=== PATIENT | male | born 1945 | race African-American/Black ===

== ENCOUNTER 2016-10-21 10:32 | Inpatient (IN) | payer OTHER, MEDICAID ==
[~2016-10-21] VITALS: Ht 177.8 cm; Wt 86.2 kg
[2016-10-21] VITALS (40 sets, daily range): BP systolic 59–157; BP diastolic 41–94
[~2016-10-21 10:32] MED LIST: Piperacillin/Tazobactam 4.5 GM in NS 110 ML IV STA
--- NOTE | 2016-10-21 10:40 | Emergency Room Report ---
History of Present Illness General Chief Complaint: Altered Level of Consciousness Source: Medical Record Present Illness HPI [id number] BIBEMS from SNF for "episode of unresponsiveness" at SNF. SNF nurses said patient usually "talking, responsive," acutely was not responsive VS stable on scene. Glucose 113 per EMS. Patient trach/vent chronically - dementia - not providing HPI Allergies: Coded Allergies: No Known Allergies (Unverified , 10/21/16) Patient History Past Medical History: DM, [place], dementia Past Surgical History: unable to obtain Pertinent Family History: unable to obtain Social History: Denies: smoking, alcohol use, drug use Immunizations: UTD Reviewed Nursing Documentation: PMH: Agreed, PSxH: Agreed Nursing Documentation-PMH Hx Cardiac Problems: Yes - TRACH,RENAL FAILURE,CHF Hx Hypertension: Yes Hx Pacemaker: Yes Hx COPD: Yes Hx Diabetes: Yes Hx Gastrointestinal Problems: Yes - g-TUBE Review of Systems All Other Systems: limited - AMS Physical Exam Vital Signs Date Time Temp Pulse Resp B/P (MAP) Pulse Ox O2 Delivery O2 Flow Rate FiO2 10/21/16 10:15 63 15 94/73 97 Trach Collar 8.0 40 Sp02 EP Interpretation: reviewed, normal General Appearance: normal inspection, well appearing, no apparent distress, other - Apneic breathing Head: normocephalic, atraumatic Eyes: bilateral eye PERRL, bilateral eye EOMI ENT: normal ENT inspection, hearing grossly normal, normal voice Neck: normal inspection, full range of motion, supple, no meningismus, no bony tend Respiratory: normal inspection, chest non-tender, no respiratory distress, no retraction, no accessory muscle use, rhonchi Cardiovascular #1: regular rate, rhythm, no edema Gastrointestinal: normal inspection, normal bowel sounds, non tender, soft, no guarding, no hernia Genitourinary: no CVA tenderness Musculoskeletal: normal inspection, back normal, normal range of motion, Tonya' s Sign negative Neurologic: normal inspection, alert, responsive, brush washer III-XII nml as tested, speech normal Psychiatric: normal inspection, judgement/insight normal, mood/affect normal Skin: normal inspection, normal color, no rash Procedures Critical Care Time Critical Care Time CC time 40 minutes includes review of EMR and paperwork from SNF, d/w admitting hospitalist, review of labs, CXR, bedside evaluation of vital signs/O2 sat CC also could include Abx, pressors Does not include procedure time Central Line Central Line : Consent: Emergent Central Line Lumen: triple Maximal Sterile Barrier Tech: yes cap, yes mask, yes sterile gown, yes sterile gloves, yes large sterile sheet, yes hand hygiene, yes chlorhexidine prep No Max Barrier Tech Because: emergency insertion Central Line Postion: internal jugular (R) Complications: none Central Line Post Position: sutured, good blood return, position confirmed w / CXR Attempts: One Patient Tolerated: Well Complications: None Medical Decision Making Medicare Attestation I Ruddy Elizabeth MD hereby attest that the medical record entry for date of service, 10/21/16 accurately reflects signatures/notations that I made in my capacity as MD when I treated/diagnosed the above listed Medicare beneficiary. I attest that this information is true, accurate and complete to the best of my knowledge. I understand that any falsification, omission, or concealment of material fact may subject me to administrative, civil, or criminal liability. This patient warrants hospital admission for extreme of age and has a condition that cannot be treated as outpatient. Diagnostic Impression: Primary Impression: Altered level of consciousness Additional Impressions: Hyperkalemia Septic shock Pneumonia Qualified Codes: J18.9 - Pneumonia, unspecified organism Shock liver UTI (urinary tract infection) Qualified Codes: N30.01 - Acute cystitis with hematuria ER Course Initially patient maintained O2 sat on Trach mask, then desaturation to 60s. Was connected to Vent. Pts trach/airway remains patent, supplemental O2 provided by Vent Patients BP has remained stable with MAP > 65 Given broad spectrum abx - zosyn Labs: H&H stable. Lactate normal. HyperK. Shock liver. UTI CXR: Bilateral PNA vs pulm congestion EKG: sinus with 1st degree AV block. Hyperacute T waves in V3-4 - No response to fluid challenge. Required central line and Levophed pressor - HyperK treated - likely cause of hyperacute Twaves Disposition: Patient will admitted to ICU Patient requires close monitoring of respiratory/hemodynamic status and continuation of abx to treat sepsis D/W hospitalist Dr Mary at 1217pm EKG Diagnostic Results Rate: other - 1st degree AV block Rhythm: NSR ST Segments: other - peaked Twaves Rhythm Strip Diag. Results EP Interpretation: yes Rate: 65 Rhythm: NSR, other - Multiple PVCs Chest X-Ray Diagnostic Results Chest X-Ray Diagnostic Results : Chest X-Ray Ordered: Yes # of Views/Limited/Complete: 1 View Indication: Other - AMS EP Interpretation: Yes Interpretation: no pneumothorax, other - Diffuse bilateral infiltrate vs congestion Interpreting ER Provider: Dr Ruddy Elizabeth MD Last Vital Signs Date Time Temp Pulse Resp B/P (MAP) Pulse Ox O2 Delivery O2 Flow Rate FiO2 10/21/16 10:15 63 15 94/73 97 Trach Collar 8.0 40 Status: improved Disposition: ADMITTED INPATIENT Condition: Critical RUDDY ELIZABETH M.D. Oct 21, 2016 10:40
[2016-10-21] MEDS ORDERED: Zosyn 4.5gm inj ONE (11:06)
[2016-10-21] MEDS ORDERED: Lidocaine 1% MPF 10mg/ml 5ml ONE (11:06)
[2016-10-21 11:13] LABS: APPEARANCE,URINE TURBID; KETONES,URINE NEGATIVE (NEGATIVE); LEUKOCYTE ESTERASE ,URINE 1+ (NEGATIVE); NITRITE,URINE NEGATIVE (NEGATIVE); PH,URINE 5 (4.5-8.0); PROTEIN,URINE 1+ (NEGATIVE); UROBILINOGEN,URINE NORMAL MG/DL (0.0-1.0)
[2016-10-21 11:13] LABS: MEAN CORPUSCULAR VOLUME 96 FL (80-99); MEAN PLATELET VOLUME 11.5 FL (6.5-10.1); PLATELET COUNT 91 K/UL (150-450); RED BLOOD COUNT 3.75 M/UL (4.70-6.10); RED CELL DISTRIBUTION WIDTH 20.8 % (11.6-14.8); WHITE BLOOD COUNT 7.5 K/UL (4.8-10.8)
[2016-10-21 11:18] LABS: TROPONIN I < 0.30 ng/mL (<=0.30)
[2016-10-21 11:19] LABS: ALANINE AMINOTRANSFERASE 149 U/L (3-41); ALBUMIN/GLOBULIN RATIO 0.5 (1.0-2.7); ANION GAP 7 (5-15); ASPARTATE AMINO TRANSFERASE 164 U/L (5-40); CALCIUM 10.4 mg/dL (8.6-10.2); CARBON DIOXIDE 32 mEQ/L (20-30); CHLORIDE 107 mEQ/L (98-107); HEMOLYSIS 13; POTASSIUM 5.6 mEQ/L (3.4-4.9); SODIUM 146 mEQ/L (135-145); TOTAL PROTEIN 7.8 g/dL (6.6-8.7)
[2016-10-21 11:29] LABS: CKMB 9.1 ng/mL (< 6.7)
[2016-10-21 11:41] LABS: AMORPHOUS SEDIMENT,UR MANY /LPF; BACTERIA,URINE FEW /HPF; SQUAMOUS EPITHELIAL CELL,UR FEW /LPF (NONE/OCC)
[2016-10-21] MEDS ORDERED: Levophed 4mg/4mL Inj IV ONE ×3 (11:44→20:33)
[2016-10-21 11:48] LABS: BAND NEUTROPHILS % (MANUAL) 8 % (0-8); BASOPHILS % (MANUAL) 1 % (0-2); EOSINOPHILS % (MANUAL) 1 % (0-3); LYMPHOCYTES % (MANUAL) 24 % (20-45); METAMYELOCYTES % 2 % (0-0); MYELOCYTES % 2 % (0-0); NEUTROPHILS % (MANUAL) 48 % (45-75); TOTAL CELLS COUNTED 100
[2016-10-21 11:55] LABS: PLATELET ESTIMATE DECREASED; PLATELET MORPHOLOGY NORMAL
[2016-10-21] MEDS ORDERED: Atropine Sulfate 0.4mg/ml inj 20ML IVP ONE (12:00)
[2016-10-21] MEDS ORDERED: LORazepam Inj 2mg/ml 1ml ONE (12:04)
--- NOTE | 2016-10-21 12:15 | Diagnostic Imaging Report ---
Indication: Dyspnea Comparison: None A single view chest radiograph was obtained. Findings: Airspace opacities fairly extensively throughout both lung langston demonstrated. The heart is enlarged. There is a probable right pleural effusion. Tracheostomy is present. Impression: Diffuse bilateral infiltrates versus pulmonary edema. Probable right pleural effusion.
[2016-10-21] MEDS ORDERED: Calcium Gluconate 1gm/10ml vial IVP ONE (12:30)
[2016-10-21] MEDS ORDERED: Albuterol ud Inhalation HHN ONE (12:30)
[2016-10-21] MEDS ORDERED: Sodium Polystyrene Sulfonate 15gm Powder ORAL ONE (12:30)
[2016-10-21] MEDS ORDERED: ATIVAN1 MG GT (13:24)
[2016-10-21] MEDS ORDERED: MILK OF MA400 MG/51 GT (13:24)
[2016-10-21] MEDS ORDERED: COREG3.125 MG GT (13:24)
[2016-10-21] MEDS ORDERED: COLACE100 MG GT (13:24)
[2016-10-21] MEDS ORDERED: MULTIVITAMINS1 EAC2 GT (13:24)
[2016-10-21] MEDS ORDERED: BISACODYL5 MG GT (13:24)
[2016-10-21] MEDS ORDERED: DONEPEZIL HCL5 M2 GT (13:24)
[2016-10-21] MEDS ORDERED: PLAVIX75 MG GT (13:24)
[2016-10-21] MEDS ORDERED: ZOFRAN4 M1 GT (13:24)
[2016-10-21] MEDS ORDERED: ATORVASTATIN CA20 MG ORAL (13:24)
[2016-10-21] MEDS ORDERED: LACTULOSE20 GM/301 GT (13:24)
[2016-10-21] MEDS ORDERED: HYDRALAZINE HCL25 M1 ORAL (13:24)
[2016-10-21] MEDS ORDERED: ZANTAC150 MG GT (13:24)
[2016-10-21] MEDS ORDERED: ACETAMINOP160 MG/5 M GT (13:24)
[2016-10-21] MEDS ORDERED: ISOSORBIDE DINIT5 MG GT (13:24)
[2016-10-21] MEDS ORDERED: FERROUS SU300 MG/5 M GT (13:24)
[2016-10-21] MEDS ORDERED: ZINC50 M2 GT (13:24)
[2016-10-21] MEDS ORDERED: Morphine Sulfate 4mg/ml Inj IVP PRN (13:45)
[2016-10-21] MEDS ORDERED: LORazepam Inj 2mg/ml 1ml IV ONE (13:45)
[2016-10-21] MEDS ORDERED: DuoNeb 0.5-3(2.5)mg/3ml neb HHN PRN (13:45)
[2016-10-21] MEDS ORDERED: Miralax 17gm pkt ORAL PRN (13:45)
[2016-10-21] MEDS ORDERED: LORazepam Inj 2mg/ml 1ml IV PRN (13:45)
--- NOTE | 2016-10-21 14:08 | Diagnostic Imaging Report ---
Indication: Jugular line placement Comparison: 10/21/16 A single view chest radiograph was obtained. Findings: Right jugular line is present in good position. The tip projects over the SVC. There is no pneumothorax or other complications. Patchy airspace opacities again noted throughout the lungs. Cardiomegaly is stable. Tracheostomy again noted Impression: Right jugular central venous catheter placement. This appears to be in good position. No complications identified
[2016-10-21] MEDS ORDERED: Amikacin Rx to dose MISC PRN (14:15)
[2016-10-21] MEDS: Ertapenem 1 GM in NS 55 ML IV SCH (15:10)
[2016-10-21] MEDS ORDERED: Amikacin 1,000 MG in NS 110 ML IV SCH (16:00)
--- NOTE | 2016-10-21 17:20 | Infectious Diseases Prog Note ---
Infectious Disease Consult Infectious Disease Consult Infectious Disease Consult INFECTIOUS DISEASE CONSULTATION DATE OF CONSULTATION: 21Oct2016 CONSULTING PHYSICIAN: Jesse Campbell M.D., MTM&H, CTropMed Covering for Dr. Sofia REFERRING PHYSICIAN: Dr Jayleen Mary REASON FOR CONSULTATION: altered mental status, sepsis HISTORY OF PRESENT ILLNESS: 71 y/o AAM h/o VDRF, dementia, HFPeF, s/p trach/peg , brought in by EMS from [facility] ([facility]) for episode of unresponsiveness. Living at [facility] since 07/30/16, when previously had been admitted to [facility] in [place] for pneumonia. previously known to be able to verbalize. was not hypoglycemic (FSBG 113) . no reports of fevers, and in fact was hypothermic when presented. patient unable to provide history, is trach/vent chronically with undefined dementia. no recent abx. only recent medication changed was addition of depakote on 09/21/16 for mood disorder, lasix 20mg peg daily for increased BNP, and he's also been receiving ativan more recently for anxiety. there's multiple notations of getting ammonia and valproic acid levels. On presentation he desatted to 60% on trach mask so connected to vent, given a dose of IV zosyn, noted to have normal lactate, no leukocytosis, elevated LFTs with no prior for comparison, CXR with multifocal pneumonia vs pulm congestion, EKG sinus with 1st degree AV block, hyperacute T waves in anterior precordial leads only with K elevated which was treated. he became hypotensive unresponsive to fluid challenge, so ER placed R IJ CVC and started on levophed, currently on 20mcg/min, and on GABE hugger in ICU. Reviewed limited medical record from his [facility]. he does not carry a history of cirrhosis but am suspicious based on med list. blood cx have been ordered but not yet obtained, so nurse will obtain two sets of blood cx now (from new central line). Cardiac enzymes one set negative, and although his records suggest h/o diastolic heart failure, his TTE demonstrated moderate LV enlargement, global LV hypokinesis with depressed EF 30-35%, mod MR, and mild pulmonary HTN with dilated IVC that suggests against hypovolemic shock as the etiology of his hypotension and hypothermia. PAST MEDICAL HISTORY: DM, [place], dementia, VDRF, HFPeF, h/o VIANCA, HTN, HLD, chronic dysphagia, ? chronic liver disease Past Surgical History: g tube, trach ALLERGIES: No known drug allergies. ANTIBIOTICS: s/p zosyn x1 IV vanc/amikacin/ertapenem (10/21-- Home and hospitalized medications reviewed. SNF meds: aricept, lorazepam prn, colace, coreg 3.125mg po bid, dulcolax, ferrous sulfate, hydralazine 25mg po BID, isordil 10mg TID, lactulose BID, lipitor 80mg po qhs, MOM, plavix 75mg po daily, vitamin C, zofran PRN, Depakote started on 09/21/16 SOCIAL HISTORY: lives in SNF. family now at bedside. no reported h/o etoh or illicits. FAMILY HISTORY: Noncontributory REVIEW OF SYSTEMS: 11 point ROS negative except for that mentioned in HPI above. PHYSICAL EXAM: VITAL SIGNS: T 90.9 rectally BP 122/94 hr 64 rr 16 100% on vent General Appearance: not responsive, no apparent distress, other - Apneic breathing, now intubated on vent Head: normocephalic, atraumatic Eyes: bilateral eye PERRL, bilateral eye EOMI ENT: normal ENT inspection, hearing grossly normal, normal voice Neck: normal inspection, full range of motion, supple, no meningismus, no bony tend. R IJ placed today, c/d/i Respiratory: normal inspection, chest non-tender, no respiratory distress, no retraction, no accessory muscle use, rhonchi, diffuse wheezes throughout. minimal trach asp. Cardiovascular #1: regular rate, rhythm, no edema Gastrointestinal: normal inspection, normal bowel sounds, non tender, soft, no guarding, no hernia Genitourinary: no CVA tenderness Musculoskeletal: normal inspection, back normal, normal range of motion, Tonya' s Sign negative Neurologic: normal inspection, alert, responsive, parking attendant III-XII nml as tested, speech normal Psychiatric: normal inspection, judgement/insight normal, mood/affect normal Skin: normal inspection, normal color, no rash. several non erythematous, non purulent punched out lesions on pretibial spaces. skin warm, prefusing distally on levophed. LABORATORY AND DIAGNOSTIC DATA: WBC 7.5, hgb 10.9, plt 91, N 48%, 8% bands Na 146, K 5.6, Cl 107, CO2 32, BUn 38, Scr 1.0, gluc 109 LAC 1.4 Ca 10.4--> corrects to 11.3 T bili 0.8, alk phos 143, ast 164, alt 149, CK 141, trop <0.3 prot 7.8, alb 2.8. U/A 1.015/1_ protein/5+ blood/1+ LE/5-10 WBC/few bacteria RADIOLOGY: Patient : IMMANUEL PEOPLES Referring Physician: RUDDY ELIZABETH M.D. ID Number: [id number] Service Date: 10/21/16 : 1945 Report Date: 10/21/16 Gender: M Accession No.: [id number] Location: ICU Procedure: XRAY Chest 1v Indication: Jugular line placement Comparison: 10/21/16 A single view chest radiograph was obtained. Findings: Right jugular line is present in good position. The tip projects over the SVC. There is no pneumothorax or other complications. Patchy airspace opacities again noted throughout the lungs. Cardiomegaly is stable. Tracheostomy again noted Impression: Right jugular central venous catheter placement. This appears to be in good position. No complications identified ASSESSMENT AND PLAN ASSESSMENT: --severe sepsis, requiring 1 pressor. TTE demonstrates significant systolic dysfunction with dilated IVC arguing against hypovolemic shock. Treating as multilobar pneumonia, r/o bacteremia, r/o hepatic encephalopathy, r/o acute hepatis vs shock liver. r/o acute biliary disease although labs suggest mild/ mod hepatocellular injury rather than cholestasis. --severe hypothermia --no leukocytosis --possible multilobar pneumonia vs pulmonary edema --thrombocytopenia, uncertain duration --moderate transaminitis, uncertain duration --h/o regular lactulose administration at [facility]; query h/o chronic liver disease --h/o depakote for mood d/o --hyperkalemia --hypercalemia, corrected for hypoalb to 11.3 mg/dL --U/A negative for UTI PLAN: --continue empiric IV vanc, amikacin, and ertapenem D#1 --f/u blood cx x2 --f/u sputum cx --f/u MRSA and VRE screening --acute viral hepatitis panel, coags, RUQ u/s to r/o acute biliary disease and assess for possible/probable cirrhosis --r/o alternative non infectious causes of AMS: ammonia level, serum valproic acid level, TSH --aspiration precautions, vent care, trach care --skin care --d/c R IJ CVC when no longer medically necessary Thank you for this consultation. Will continue to follow. Covering for Dr. Sofia, please call me with questions, Jesse Campbell M.D. Oct 21, 2016 17:20
[2016-10-21] MEDS ORDERED: Vancomycin 1.5 GM/D5W 250ML IVPB ONE (18:00)
[2016-10-21 18:05] LABS: INR 1.1 (0.9-1.1); PROTHROMBIN TIME 11.5 SEC (9.30-11.50)
[2016-10-21 18:20] LABS: THYROID STIMULATING HORMONE 9.97 uIU/mL (0.300-4.500)
[2016-10-21] MEDS: Heparin 5000 units/ml inj SUBQ SCH (20:44)
[2016-10-21] MEDS ORDERED: Vancomycin 1 GM in D5W 275 ML IV SCH (23:45)
[2016-10-22] VITALS (87 sets, daily range): BP systolic 63–122; BP diastolic 37–81
[2016-10-22] MEDS ORDERED: Dyna-Hex 2% Top Sol 8oz TOPIC ONE (01:30)
[2016-10-22 05:36] LABS: MEAN CORPUSCULAR HEMOGLOBIN 30.4 PG (27.0-31.0); MEAN CORPUSCULAR HGB CONC 32.2 G/DL (32.0-36.0); MEAN CORPUSCULAR VOLUME 94 FL (80-99); MEAN PLATELET VOLUME 10.7 FL (6.5-10.1); PLATELET COUNT 73 K/UL (150-450); RED CELL DISTRIBUTION WIDTH 20.5 % (11.6-14.8); WHITE BLOOD COUNT 10.4 K/UL (4.8-10.8)
[2016-10-22] MEDS: Vancomycin 750mg/NS 250ml IVPB SCH ×2 (05:54→17:40)
[2016-10-22 07:15] LABS: ALANINE AMINOTRANSFERASE 100 U/L (3-41); ALBUMIN/GLOBULIN RATIO 0.4 (1.0-2.7); ANION GAP 13 (5-15); ASPARTATE AMINO TRANSFERASE 93 U/L (5-40); BILIRUBIN,DIRECT 0.1 mg/dL (0.1-0.3); CALCIUM 9.2 mg/dL (8.6-10.2); CARBON DIOXIDE 26 mEQ/L (20-30); CHLORIDE 105 mEQ/L (98-107); CREATININE 1.2 mg/dL (0.7-1.2); HEMOLYSIS 7; POTASSIUM 5.3 mEQ/L (3.4-4.9); SODIUM 144 mEQ/L (135-145); TOTAL PROTEIN 6.8 g/dL (6.6-8.7)
[2016-10-22] MEDS: Heparin 5000 units/ml inj SUBQ SCH ×2 (08:49→21:00)
[2016-10-22] MEDS: Dyna-Hex 2% Top Sol 8oz TOPIC SCH (08:54)
[2016-10-22] MEDS ORDERED: Dyna-Hex 2% Top Sol 8oz TOPIC SCH (09:00)
[2016-10-22 09:56] LABS: ANISOCYTOSIS 2+; BAND NEUTROPHILS % (MANUAL) 12 % (0-8); BASOPHILS % (MANUAL) 0 % (0-2); EOSINOPHILS % (MANUAL) 0 % (0-3); HYPOCHROMASIA 1+; LYMPHOCYTES % (MANUAL) 19 % (20-45); NEUTROPHILS % (MANUAL) 65 % (45-75); PLATELET ESTIMATE DECREASED; TOTAL CELLS COUNTED 100
[2016-10-22 09:59] LABS: ABG PCO2 46.3 mmHg (35.0-45.0)
[2016-10-22 10:00] LABS: ABG ALLEN TEST POSITIVE; ABG BASE EXCESS 6.4
--- NOTE | 2016-10-22 10:34 | History and Physical ---
History of Present Illness General Date patient seen: Oct 21, 2016 Time patient seen: 16:00 Reason for Hospitalization: Altered Level of Consciousness Present Illness HPI 71 year old male with hypoxemic encephalopathy, s/p cardiac arrest last march with trach/vent/peg from SNF BIBA with CC o0f "episode of unresponsiveness" at SNF. Pt was found to have extensive pneumonia and admitted to ICU. Allergies: Coded Allergies: No Known Allergies (Unverified , 10/21/16) Medication History Scheduled Atorvastatin Calcium* (Atorvastatin Calcium*), Unknown Dose ORAL BEDTIME, ( Reported) Carvedilol (Coreg), 3.125 MG GT EVERY 12 HOURS, (Reported) Clopidogrel Bisulfate* (Plavix*), 75 MG GT DAILY, (Reported) Docusate Sodium* (Colace*), 100 MG GT DAILY, (Reported) Donepezil Hcl* (Donepezil Hcl*), 5 MG GT DAILY, (Reported) Ferrous Sulfate (Ferrous Sulfate), 7.5 ML GT BID, (Reported) Hydralazine Hcl* (Hydralazine Hcl*), 25 MG ORAL EVERY 6 HOURS, (Reported) Lactulose (Lactulose*), 20 ML GT BID, (Reported) Multivitamins* (Multivitamins*), Unknown Dose GT DAILY, (Reported) Ranitidine Hcl* (Zantac*), 150 MG GT DAILY, (Reported) Scheduled PRN Acetaminophen 160MG/5ML* (Acetaminophen*), 20 ML GT EVERY 4 HOURS PRN for Fever/ Headache/Mild Pain, (Reported) Bisacodyl* (Dulcolax*), 10 MG GT DAILY PRN for Constipation, (Reported) Lorazepam* (Ativan*), 1 MG GT BID PRN for For Anxiety, (Reported) Magnesium Hydroxide* (Milk Of Magnesia*), 30 ML GT DAILY PRN for Constipation, ( Reported) Ondansetron (Zofran), 4 MG GT Q6H PRN for Nausea & Vomiting, (Reported) Miscellaneous Medications Isosorbide Dinitrate (Isosorbide Dinitrate*), 5 MG GT, (Reported) Zinc Amino Acid Chelate (Zinc), Unknown Dose GT, (Reported) Patient History Healthcare decision maker Resuscitation status Full Code Advanced Directive on File No Past Medical/Surgical History Past Medical/Surgical History: (1) Hypoxemic encephalopathy (2) Feeding by G-tube (3) Ventilator dependent Review of Systems All Other Systems: negative except mentioned in HPI Physical Exam General Appearance: cachetic Lines, tubes and drains: peripheral HEENT: normocephalic, atraumatic Neck: non-tender, normal alignment Respiratory/Chest: chest wall non-tender, lungs clear Breasts: no masses Cardiovascular/Chest: normal peripheral pulses Abdomen: normal bowel sounds, non tender Genitourinary/Rectal: normal genital exam, normal rectal exam Extremities: normal range of motion, non-tender Skin Exam: normal pigmentation Neurologic: perch mender II-XII grossly normal Last 24 Hour Vital Signs Date Time Temp Pulse Resp B/P (MAP) Pulse Ox O2 Delivery O2 Flow Rate FiO2 10/22/16 09:00 106 21 94/47 96 Mechanical Ventilator 60 10/22/16 09:00 100/53 10/22/16 08:45 102 23 100/55 98 Mechanical Ventilator 60 10/22/16 08:30 102 22 99/51 98 Mechanical Ventilator 60 10/22/16 08:15 102 23 98/48 97 Mechanical Ventilator 60 10/22/16 08:00 60 10/22/16 08:00 98.3 97 22 95/50 97 Mechanical Ventilator 60 10/22/16 07:45 96 23 98/56 97 Mechanical Ventilator 60 10/22/16 07:30 94 22 94/56 97 Mechanical Ventilator 60 10/22/16 07:30 106 20 50 10/22/16 07:15 93 22 100/56 97 Mechanical Ventilator 60 10/22/16 07:00 95 21 101/56 98 Mechanical Ventilator 60 10/22/16 06:45 93 21 105/50 97 Mechanical Ventilator 60 10/22/16 06:30 62 21 105/50 97 Mechanical Ventilator 60 10/22/16 06:15 93 21 101/55 96 Mechanical Ventilator 60 10/22/16 06:00 93 21 99/57 96 Mechanical Ventilator 60 10/22/16 05:55 102/55 10/22/16 05:45 92 21 98/56 96 Mechanical Ventilator 60 10/22/16 05:30 91 21 102/55 96 Mechanical Ventilator 60 10/22/16 05:15 90 21 104/57 95 Mechanical Ventilator 60 10/22/16 05:00 93 22 103/55 95 Mechanical Ventilator 60 10/22/16 04:57 89 20 60 10/22/16 04:45 89 21 102/53 95 Mechanical Ventilator 60 10/22/16 04:30 91 21 105/53 95 Mechanical Ventilator 60 10/22/16 04:00 92 10/22/16 04:00 60 10/22/16 04:00 98.1 91 17 105/58 95 Mechanical Ventilator 60 10/22/16 03:30 89 17 105/55 95 Mechanical Ventilator 60 10/22/16 03:01 86 18 60 10/22/16 03:00 86 17 111/56 95 Mechanical Ventilator 60 10/22/16 02:30 91 17 99/57 98 Mechanical Ventilator 60 10/22/16 02:00 89 17 101/56 98 Mechanical Ventilator 60 10/22/16 01:30 89 17 101/57 98 Mechanical Ventilator 60 10/22/16 01:29 91 16 60 10/22/16 01:29 99/58 10/22/16 01:00 89 17 99/58 98 Mechanical Ventilator 60 10/22/16 00:30 89 17 104/57 98 Mechanical Ventilator 60 10/22/16 00:00 97.9 89 17 104/57 98 Mechanical Ventilator 60 10/22/16 00:00 87 10/21/16 23:45 89 17 104/57 98 Mechanical Ventilator 60 10/21/16 23:30 88 16 101/56 98 Mechanical Ventilator 60 10/21/16 23:25 93 16 60 10/21/16 23:15 88 16 101/59 98 Mechanical Ventilator 60 10/21/16 23:00 89 16 99/57 98 Mechanical Ventilator 60 10/21/16 22:45 88 17 98/61 97 Mechanical Ventilator 60 10/21/16 22:30 87 17 98/61 98 Mechanical Ventilator 60 10/21/16 22:15 86 17 100/63 98 Mechanical Ventilator 60 10/21/16 22:00 87 18 103/60 98 Mechanical Ventilator 60 10/21/16 21:45 88 18 104/59 98 Mechanical Ventilator 60 10/21/16 21:30 88 18 106/58 99 Mechanical Ventilator 60 10/21/16 21:19 84 20 60 10/21/16 21:15 87 18 104/56 100 Mechanical Ventilator 60 10/21/16 21:00 88 18 104/56 100 Mechanical Ventilator 60 10/21/16 20:45 87 17 105/62 100 Mechanical Ventilator 60 10/21/16 20:40 95/54 10/21/16 20:30 78 16 92/59 100 Mechanical Ventilator 60 10/21/16 20:15 81 16 59/42 100 Mechanical Ventilator 70 10/21/16 20:00 70 10/21/16 20:00 80 16 77/52 100 Mechanical Ventilator 70 10/21/16 20:00 73 10/21/16 19:45 79 16 77/52 100 Mechanical Ventilator 70 10/21/16 19:30 97.9 88 17 102/61 100 Mechanical Ventilator 90 10/21/16 19:29 92 23 70 10/21/16 18:15 97.5 90 20 101/59 100 Mechanical Ventilator 90 10/21/16 18:15 101/59 10/21/16 18:00 98/57 10/21/16 18:00 92 18 98/57 100 Mechanical Ventilator 90 10/21/16 17:45 96.5 91 19 106/66 100 Mechanical Ventilator 90 10/21/16 17:30 117/87 10/21/16 17:30 92 20 101/41 100 Mechanical Ventilator 90 10/21/16 17:16 90 22 70 10/21/16 17:15 91 19 117/87 100 Mechanical Ventilator 90 10/21/16 17:00 93.9 86 21 130/84 100 Mechanical Ventilator 90 10/21/16 16:45 78 16 145/65 100 Mechanical Ventilator 90 10/21/16 16:37 108/65 10/21/16 16:30 72 16 108/65 100 Mechanical Ventilator 90 10/21/16 16:15 72 20 108/60 100 Mechanical Ventilator 90 10/21/16 16:00 73 10/21/16 16:00 93.5 71 20 121/80 100 Mechanical Ventilator 90 10/21/16 15:45 72 20 97/74 100 Mechanical Ventilator 90 10/21/16 15:24 121/70 10/21/16 15:24 71 20 90 10/21/16 15:00 91.2 71 20 121/70 100 Mechanical Ventilator 90 10/21/16 14:26 73 10/21/16 14:23 90 10/21/16 14:00 91.0 72 20 138/83 100 Mechanical Ventilator 90 10/21/16 13:50 90.9 59 18 120/60 100 Mechanical Ventilator 8.0 90 10/21/16 13:45 90.9 59 18 120/60 100 Mechanical Ventilator 8.0 90 10/21/16 13:37 157/83 10/21/16 13:30 90.9 64 16 122/94 100 Mechanical Ventilator 8.0 90 10/21/16 13:30 90.9 61 18 157/83 100 Mechanical Ventilator 8.0 90 10/21/16 13:10 97/84 10/21/16 13:09 8.0 90 10/21/16 13:05 104/67 10/21/16 13:00 88.5 52 20 104/67 100 Mechanical Ventilator 8.0 90 10/21/16 12:59 96/63 10/21/16 12:49 97/60 10/21/16 12:40 58 20 90 10/21/16 12:40 93/61 10/21/16 12:39 50 20 100 Mechanical Ventilator 90 10/21/16 12:34 88.5 47 20 91/58 100 Trach Collar 8.0 100 10/21/16 12:33 91/58 10/21/16 12:30 50 20 100 Mechanical Ventilator 100 10/21/16 12:30 100 10/21/16 12:30 88.5 57 20 91/58 100 Mechanical Ventilator 8.0 100 10/21/16 12:25 88.5 108/65 10/21/16 12:25 108/65 10/21/16 12:10 73/53 10/21/16 12:00 88.0 18 109/69 100 Trach Collar 8.0 100 10/21/16 11:55 62/43 Trach Collar 8.0 100 10/21/16 11:55 62/43 10/21/16 11:28 46 20 71/46 99 Trach Collar 8.0 100 10/21/16 11:09 56 16 100 10/21/16 10:54 88.0 10/21/16 10:42 60 16 50 Intake and Output 10/22/16 10/23/16 19:00 07:00 Intake Total 50 ml Output Total 250 ml Balance -200 ml Intake Oral 0 ml Other 50 ml Output Urine Total 250 ml Laboratory Tests Test 10/21/16 10:40 10/21/16 10:50 10/21/16 17:10 10/22/16 04:30 White Blood Count 7.5 K/UL (4.8-10.8) 10.4 K/UL (4.8-10.8) Red Blood Count 3.75 M/UL (4.70-6.10) L 3.00 M/UL (4.70-6.10) L Hemoglobin 10.9 G/DL (14.2-18.0) L 9.1 G/DL (14.2-18.0) L Hematocrit 36.2 % (42.0-52.0) L 28.2 % (42.0-52.0) L Mean Corpuscular Volume 96 FL (80-99) 94 FL (80-99) Mean Corpuscular Hemoglobin 29.0 PG (27.0-31.0) 30.4 PG (27.0-31.0) Mean Corpuscular Hemoglobin Concent 30.0 G/DL (32.0-36.0) L 32.2 G/DL (32.0-36.0) Red Cell Distribution Width 20.8 % (11.6-14.8) H 20.5 % (11.6-14.8) H Platelet Count 91 K/UL (150-450) L 73 K/UL (150-450) L Mean Platelet Volume 11.5 FL (6.5-10.1) H 10.7 FL (6.5-10.1) H Neutrophils (%) (Auto) % (45.0-75.0) % (45.0-75.0) Lymphocytes (%) (Auto) % (20.0-45.0) % (20.0-45.0) Monocytes (%) (Auto) % (1.0-10.0) % (1.0-10.0) Eosinophils (%) (Auto) % (0.0-3.0) % (0.0-3.0) Basophils (%) (Auto) % (0.0-2.0) % (0.0-2.0) Differential Total Cells Counted 100 100 Neutrophils % (Manual) 48 % (45-75) 65 % (45-75) Lymphocytes % (Manual) 24 % (20-45) 19 % (20-45) L Monocytes % (Manual) 14 % (1-10) H 4 % (1-10) Eosinophils % (Manual) 1 % (0-3) 0 % (0-3) Basophils % (Manual) 1 % (0-2) 0 % (0-2) Metamyelocytes % 2 % (0-0) H Myelocytes % 2 % (0-0) H Band Neutrophils 8 % (0-8) 12 % (0-8) H Platelet Estimate Decreased L Decreased L Platelet Morphology Normal Sodium Level 146 mEQ/L (135-145) H 144 mEQ/L (135-145) Potassium Level 5.6 mEQ/L (3.4-4.9) H 5.3 mEQ/L (3.4-4.9) H Chloride Level 107 mEQ/L (98-107) 105 mEQ/L (98-107) Carbon Dioxide Level 32 mEQ/L (20-30) H 26 mEQ/L (20-30) Anion Gap 7 (5-15) 13 (5-15) Blood Urea Nitrogen 38 mg/dL (7-23) H 39 mg/dL (7-23) H Creatinine 1.0 mg/dL (0.7-1.2) 1.2 mg/dL (0.7-1.2) Estimat Glomerular Filtration Rate mL/min (>60) mL/min (>60) Glucose Level 109 mg/dL (74-106) H 94 mg/dL (74-106) Lactic Acid Level 1.40 mmol/L (0.66-2.22) Calcium Level 10.4 mg/dL (8.6-10.2) H 9.2 mg/dL (8.6-10.2) Total Bilirubin 0.8 mg/dL (0.0-1.2) 0.3 mg/dL (0.0-1.2) Aspartate Amino Transf (AST/SGOT) 164 U/L (5-40) H 93 U/L (5-40) H Alanine Aminotransferase (ALT/SGPT) 149 U/L (3-41) H 100 U/L (3-41) H Alkaline Phosphatase 143 U/L (40-129) H 101 U/L (40-129) Total Creatine Kinase 141 U/L (38-174) Creatine Kinase MB 9.1 ng/mL (< 6.7) H Creatine Kinase MB Relative Index 6.4 Troponin I < 0.30 ng/mL (<=0.30) Total Protein 7.8 g/dL (6.6-8.7) 6.8 g/dL (6.6-8.7) Albumin 2.8 g/dL (3.5-5.2) L 2.2 g/dL (3.5-5.2) L Globulin 5.0 g/dL 4.6 g/dL Albumin/Globulin Ratio 0.5 (1.0-2.7) L 0.4 (1.0-2.7) L Urine Color Pale yellow Urine Appearance Turbid Urine pH 5 (4.5-8.0) Urine Specific [place] 1.015 (1.005-1.035) Urine Protein 1+ (NEGATIVE) H Urine Glucose (UA) Negative (NEGATIVE) Urine Ketones Negative (NEGATIVE) Urine Occult Blood 5+ (NEGATIVE) H Urine Nitrite Negative (NEGATIVE) Urine Bilirubin Negative (NEGATIVE) Urine Urobilinogen Normal MG/DL (0.0-1.0) Urine Leukocyte Esterase 1+ (NEGATIVE) H Urine RBC 5-10 /HPF (0 - 0) H Urine WBC 5-10 /HPF (0 - 0) H Urine Squamous Epithelial Cells Few /LPF (NONE/OCC) Urine Amorphous Sediment Many /LPF (NONE) H Urine Bacteria Few /HPF (NONE) Prothrombin Time 11.5 SEC (9.30-11.50) Prothromb Time International Ratio 1.1 (0.9-1.1) Activated Partial Thromboplast Time 36 SEC (23-33) H Ammonia 27 umol/L (16-60) Pro-B-Type Natriuretic Peptide 5589 pg/mL (0-125) H 8929 pg/mL (0-125) H Thyroid Stimulating Hormone (TSH) 9.970 uIU/mL (0.300-4.500) Valproic Acid (Depakene) Level 12 ug/mL (50-100) L Hepatitis A IgM Antibody Pending Hepatitis B Surface Antigen Pending Hepatitis B Core IgM Antibody Pending Hepatitis C Antibody Pending Giant Platelets Occasional Hypochromasia 1+ Anisocytosis 2+ Arterial Blood pH 7.446 (7.350-7.450) Arterial Blood Partial Pressure CO2 46.3 mmHg (35.0-45.0) H Arterial Blood Partial Pressure O2 65.3 mmHg (75.0-100.0) L Arterial Blood HCO3 31.2 mmol/L (22.0-26.0) H Arterial Blood Oxygen Saturation 93.0 % (92.0-98.0) Arterial Blood Base Excess 6.4 Jones Test Positive Direct Bilirubin 0.1 mg/dL (0.1-0.3) Random Amikacin Level 18.3 ug/mL Height (Feet): 5 Height (Inches): 10.00 Weight (Pounds): 165 Medications Current Medications Medications (Trade) Dose Ordered Sig/Estelle Route PRN Reason Start Time Stop Time Status Last Admin Dose Admin Acetaminophen (Tylenol) 650 mg Q4H PRN ORAL fever 10/21/16 13:45 11/20/16 13:44 Albuterol/ Ipratropium (DuoNeb 0.5-3(2.5)mg/3ml) 3 ml Q4H PRN HHN Shortness of Breath 10/21/16 13:45 10/26/16 13:44 Amikacin Protocol (Amikacin pharmacy to dose) 1 ea DAILY PRN MISC PER RX PROTOCOL 10/21/16 14:15 11/20/16 14:14 Amikacin Sulfate 1000 mg/Sodium Chloride 114 ml @ 228 mls/hr Q48H IV 10/23/16 16:00 10/28/16 15:59 Chlorhexidine Gluconate (Ada-Hex 2%) 1 applic DAILY TOPIC 10/22/16 09:00 11/21/16 08:59 Ertapenem 1 gm/ Sodium Chloride 55 ml @ 110 mls/hr Q24H IV 10/21/16 15:00 10/26/16 14:59 10/21/16 15:10 Heparin Sodium (Porcine) (Heparin 5000 units/ml) 5,000 units EVERY 12 HOURS SUBQ 10/21/16 21:00 11/20/16 20:59 Lorazepam (Ativan 2mg/ml 1ml) 2 mg Q2H PRN IV For Anxiety 10/21/16 13:45 10/28/16 13:44 Morphine Sulfate (Morphine Sulfate) 4 mg Q4H PRN IVP Severe Pain (Pain Scale 7-10) 10/21/16 13:45 10/28/16 13:44 Norepinephrine Bitartrate 8 mg/ Dextrose 508 ml @ 0 mls/hr Q24H IV 10/21/16 20:35 11/20/16 20:34 10/22/16 05:55 Ondansetron HCl (Zofran) 4 mg Q6H PRN IVP Nausea & Vomiting 10/21/16 13:45 11/20/16 13:44 Pantoprazole (Protonix) 40 mg EVERY 12 HOURS ORAL 10/21/16 21:00 11/20/16 20:59 10/22/16 09:02 Polyethylene Glycol (Miralax) 17 gm DAILYPRN PRN ORAL Constipation 10/21/16 13:45 11/20/16 13:44 Sodium Chloride 1,000 ml @ 100 mls/hr Q10H IVLG 10/21/16 14:00 11/20/16 13:59 10/22/16 09:02 Vancomycin HCl (Vanco rx to dose) 1 ea DAILY PRN MISC PER RX PROTOCOL 10/21/16 14:00 11/20/16 13:59 Vancomycin/Sodium Chloride 250 ml @ 166.667 mls/hr Q12HR@0600,1800 IVPB 10/22/16 06:00 10/27/16 05:59 10/22/16 05:54 Assessment/Plan Problem List: (1) Acute and chronic respiratory failure ICD Codes: J96.20 - Acute and chronic respiratory failure, unspecified whether with hypoxia or hypercapnia SNOMED: 43092042 (2) Septic shock ICD Codes: A41.9 - Sepsis, unspecified organism; R65.21 - Severe sepsis with septic shock SNOMED: 65663551 (3) Pneumonia ICD Codes: J18.9 - Pneumonia, unspecified organism SNOMED: 972572935 Qualifiers: Qualified Codes: J18.9 - Pneumonia, unspecified organism (4) Hypoxemic encephalopathy ICD Codes: G93.1 - Anoxic brain damage, not elsewhere classified SNOMED: 048293027, 592303378 (5) Feeding by G-tube ICD Codes: Z93.1 - Gastrostomy status SNOMED: 875607614, 680866266 (6) Ventilator dependent ICD Codes: Z99.11 - Dependence on respirator [ventilator] status SNOMED: 947492684 Respiratory: monitor respiratory rate, adjust FIO2, CXR Cardiac: continue to monitor HR/BP Renal: F/U I&O, keep IV fluid, check electrolytes Infectious Disease: check cultures Gastrointestinal: continue feedings/current rate Endocrine: monitor blood sugar Hematologic: monitor H/H Neurologic: PRN Ativan Affect: PRN ativan Prophylaxis: Protonix, Heparin 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
--- NOTE | 2016-10-22 10:36 | Pulmonology Progress Note ---
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: campaign advisor, 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 Discussed with: nurses, assistant case manager Subjective ROS Limited/Unobtainable: Yes Constitutional: Reports: no symptoms HEENT: Repors: no symptoms Allergies: Coded Allergies: No Known Allergies (Unverified , 10/21/16) Objective Last 24 Hour Vital Signs Date Time Temp Pulse Resp B/P (MAP) Pulse Ox O2 Delivery O2 Flow Rate FiO2 10/22/16 09:00 106 21 94/47 96 Mechanical Ventilator 60 10/22/16 09:00 100/53 10/22/16 08:45 102 23 100/55 98 Mechanical Ventilator 60 10/22/16 08:30 102 22 99/51 98 Mechanical Ventilator 60 10/22/16 08:15 102 23 98/48 97 Mechanical Ventilator 60 10/22/16 08:00 60 10/22/16 08:00 98.3 97 22 95/50 97 Mechanical Ventilator 60 10/22/16 07:45 96 23 98/56 97 Mechanical Ventilator 60 10/22/16 07:30 94 22 94/56 97 Mechanical Ventilator 60 10/22/16 07:30 106 20 50 10/22/16 07:15 93 22 100/56 97 Mechanical Ventilator 60 10/22/16 07:00 95 21 101/56 98 Mechanical Ventilator 60 10/22/16 06:45 93 21 105/50 97 Mechanical Ventilator 60 10/22/16 06:30 62 21 105/50 97 Mechanical Ventilator 60 10/22/16 06:15 93 21 101/55 96 Mechanical Ventilator 60 10/22/16 06:00 93 21 99/57 96 Mechanical Ventilator 60 10/22/16 05:55 102/55 10/22/16 05:45 92 21 98/56 96 Mechanical Ventilator 60 10/22/16 05:30 91 21 102/55 96 Mechanical Ventilator 60 10/22/16 05:15 90 21 104/57 95 Mechanical Ventilator 60 10/22/16 05:00 93 22 103/55 95 Mechanical Ventilator 60 10/22/16 04:57 89 20 60 10/22/16 04:45 89 21 102/53 95 Mechanical Ventilator 60 10/22/16 04:30 91 21 105/53 95 Mechanical Ventilator 60 10/22/16 04:00 92 10/22/16 04:00 60 10/22/16 04:00 98.1 91 17 105/58 95 Mechanical Ventilator 60 10/22/16 03:30 89 17 105/55 95 Mechanical Ventilator 60 10/22/16 03:01 86 18 60 10/22/16 03:00 86 17 111/56 95 Mechanical Ventilator 60 10/22/16 02:30 91 17 99/57 98 Mechanical Ventilator 60 10/22/16 02:00 89 17 101/56 98 Mechanical Ventilator 60 10/22/16 01:30 89 17 101/57 98 Mechanical Ventilator 60 10/22/16 01:29 91 16 60 10/22/16 01:29 99/58 10/22/16 01:00 89 17 99/58 98 Mechanical Ventilator 60 10/22/16 00:30 89 17 104/57 98 Mechanical Ventilator 60 10/22/16 00:00 97.9 89 17 104/57 98 Mechanical Ventilator 60 10/22/16 00:00 87 10/21/16 23:45 89 17 104/57 98 Mechanical Ventilator 60 10/21/16 23:30 88 16 101/56 98 Mechanical Ventilator 60 10/21/16 23:25 93 16 60 10/21/16 23:15 88 16 101/59 98 Mechanical Ventilator 60 10/21/16 23:00 89 16 99/57 98 Mechanical Ventilator 60 10/21/16 22:45 88 17 98/61 97 Mechanical Ventilator 60 10/21/16 22:30 87 17 98/61 98 Mechanical Ventilator 60 10/21/16 22:15 86 17 100/63 98 Mechanical Ventilator 60 10/21/16 22:00 87 18 103/60 98 Mechanical Ventilator 60 10/21/16 21:45 88 18 104/59 98 Mechanical Ventilator 60 10/21/16 21:30 88 18 106/58 99 Mechanical Ventilator 60 10/21/16 21:19 84 20 60 10/21/16 21:15 87 18 104/56 100 Mechanical Ventilator 60 10/21/16 21:00 88 18 104/56 100 Mechanical Ventilator 60 10/21/16 20:45 87 17 105/62 100 Mechanical Ventilator 60 10/21/16 20:40 95/54 10/21/16 20:30 78 16 92/59 100 Mechanical Ventilator 60 10/21/16 20:15 81 16 59/42 100 Mechanical Ventilator 70 10/21/16 20:00 70 10/21/16 20:00 80 16 77/52 100 Mechanical Ventilator 70 10/21/16 20:00 73 10/21/16 19:45 79 16 77/52 100 Mechanical Ventilator 70 10/21/16 19:30 97.9 88 17 102/61 100 Mechanical Ventilator 90 10/21/16 19:29 92 23 70 10/21/16 18:15 97.5 90 20 101/59 100 Mechanical Ventilator 90 10/21/16 18:15 101/59 10/21/16 18:00 98/57 10/21/16 18:00 92 18 98/57 100 Mechanical Ventilator 90 10/21/16 17:45 96.5 91 19 106/66 100 Mechanical Ventilator 90 10/21/16 17:30 117/87 10/21/16 17:30 92 20 101/41 100 Mechanical Ventilator 90 10/21/16 17:16 90 22 70 10/21/16 17:15 91 19 117/87 100 Mechanical Ventilator 90 10/21/16 17:00 93.9 86 21 130/84 100 Mechanical Ventilator 90 10/21/16 16:45 78 16 145/65 100 Mechanical Ventilator 90 10/21/16 16:37 108/65 10/21/16 16:30 72 16 108/65 100 Mechanical Ventilator 90 10/21/16 16:15 72 20 108/60 100 Mechanical Ventilator 90 10/21/16 16:00 73 10/21/16 16:00 93.5 71 20 121/80 100 Mechanical Ventilator 90 10/21/16 15:45 72 20 97/74 100 Mechanical Ventilator 90 10/21/16 15:24 121/70 10/21/16 15:24 71 20 90 10/21/16 15:00 91.2 71 20 121/70 100 Mechanical Ventilator 90 10/21/16 14:26 73 10/21/16 14:23 90 10/21/16 14:00 91.0 72 20 138/83 100 Mechanical Ventilator 90 10/21/16 13:50 90.9 59 18 120/60 100 Mechanical Ventilator 8.0 90 10/21/16 13:45 90.9 59 18 120/60 100 Mechanical Ventilator 8.0 90 10/21/16 13:37 157/83 10/21/16 13:30 90.9 64 16 122/94 100 Mechanical Ventilator 8.0 90 10/21/16 13:30 90.9 61 18 157/83 100 Mechanical Ventilator 8.0 90 10/21/16 13:10 97/84 10/21/16 13:09 8.0 90 10/21/16 13:05 104/67 10/21/16 13:00 88.5 52 20 104/67 100 Mechanical Ventilator 8.0 90 10/21/16 12:59 96/63 10/21/16 12:49 97/60 10/21/16 12:40 58 20 90 10/21/16 12:40 93/61 10/21/16 12:39 50 20 100 Mechanical Ventilator 90 10/21/16 12:34 88.5 47 20 91/58 100 Trach Collar 8.0 100 10/21/16 12:33 91/58 10/21/16 12:30 50 20 100 Mechanical Ventilator 100 10/21/16 12:30 100 10/21/16 12:30 88.5 57 20 91/58 100 Mechanical Ventilator 8.0 100 10/21/16 12:25 88.5 108/65 10/21/16 12:25 108/65 10/21/16 12:10 73/53 10/21/16 12:00 88.0 18 109/69 100 Trach Collar 8.0 100 10/21/16 11:55 62/43 Trach Collar 8.0 100 10/21/16 11:55 62/43 10/21/16 11:28 46 20 71/46 99 Trach Collar 8.0 100 10/21/16 11:09 56 16 100 10/21/16 10:54 88.0 10/21/16 10:42 60 16 50 Intake and Output 10/22/16 10/23/16 19:00 07:00 Intake Total 50 ml Output Total 250 ml Balance -200 ml Intake Oral 0 ml Other 50 ml Output Urine Total 250 ml General Appearance: WD/WN HEENT: normocephalic, atraumatic Respiratory/Chest: chest wall non-tender, lungs clear Cardiovascular: normal peripheral pulses, normal rate, no JVD Abdomen: normal bowel sounds, soft, non tender Genitourinary: normal external genitalia Skin: no rash, no lesions 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 Lymphatic: no neck adenopathy Laboratory Tests 10/21/16 10:40: White Blood Count 7.5, Red Blood Count 3.75L, Hemoglobin 10.9L, Hematocrit 36.2L , Mean Corpuscular Volume 96, Mean Corpuscular Hemoglobin 29.0, Mean Corpuscular Hemoglobin Concent 30.0L, Red Cell Distribution Width 20.8H, Platelet Count 91L, Mean Platelet Volume 11.5H, Neutrophils (%) (Auto) , Lymphocytes (%) (Auto) , Monocytes (%) (Auto) , Eosinophils (%) (Auto) , Basophils (%) (Auto) , Differential Total Cells Counted 100, Neutrophils % ( Manual) 48, Lymphocytes % (Manual) 24, Monocytes % (Manual) 14H, Eosinophils % ( Manual) 1, Basophils % (Manual) 1, Metamyelocytes % 2H, Myelocytes % 2H, Band Neutrophils 8, Platelet Estimate DecreasedL, Platelet Morphology Normal, Sodium Level 146H, Potassium Level 5.6H, Chloride Level 107, Carbon Dioxide Level 32H, Anion Gap 7, Blood Urea Nitrogen 38H, Creatinine 1.0, Estimat Glomerular Filtration Rate , Glucose Level 109H, Lactic Acid Level 1.40, Calcium Level 10.4H, Total Bilirubin 0.8, Aspartate Amino Transf (AST/SGOT) 164H, Alanine Aminotransferase (ALT/SGPT) 149H, Alkaline Phosphatase 143H, Total Creatine Kinase 141, Creatine Kinase MB 9.1H, Creatine Kinase MB Relative Index 6.4, Troponin I < 0.30, Total Protein 7.8, Albumin 2.8L, Globulin 5.0, Albumin/ Globulin Ratio 0.5L 10/21/16 10:50: Urine Color Pale yellow, Urine Appearance Turbid, Urine pH 5, Urine Specific Denbo 1.015, Urine Protein 1+H, Urine Glucose (UA) Negative, Urine Ketones Negative, Urine Occult Blood 5+H, Urine Nitrite Negative, Urine Bilirubin Negative, Urine Urobilinogen Normal, Urine Leukocyte Esterase 1+H, Urine RBC 5- 10H, Urine WBC 5-10H, Urine Squamous Epithelial Cells Few, Urine Amorphous Sediment ManyH, Urine Bacteria Few 10/21/16 17:10: Prothrombin Time 11.5, Prothromb Time International Ratio 1.1, Activated Partial Thromboplast Time 36H, Ammonia 27, Pro-B-Type Natriuretic Peptide 5589H , Thyroid Stimulating Hormone (TSH) 9.970H, Valproic Acid (Depakene) Level 12L, Hepatitis A IgM Antibody [Pending], Hepatitis B Surface Antigen [Pending], Hepatitis B Core IgM Antibody [Pending], Hepatitis C Antibody [Pending] 10/22/16 04:30: White Blood Count 10.4, Red Blood Count 3.00L, Hemoglobin 9.1L, Hematocrit 28.2L , Mean Corpuscular Volume 94, Mean Corpuscular Hemoglobin 30.4, Mean Corpuscular Hemoglobin Concent 32.2, Red Cell Distribution Width 20.5H, Platelet Count 73L, Mean Platelet Volume 10.7H, Neutrophils (%) (Auto) , Lymphocytes (%) (Auto) , Monocytes (%) (Auto) , Eosinophils (%) (Auto) , Basophils (%) (Auto) , Differential Total Cells Counted 100, Neutrophils % ( Manual) 65, Lymphocytes % (Manual) 19L, Monocytes % (Manual) 4, Eosinophils % ( Manual) 0, Basophils % (Manual) 0, Band Neutrophils 12H, Platelet Estimate DecreasedL, Platelet Morphology , Sodium Level 144, Potassium Level 5.3H, Chloride Level 105, Carbon Dioxide Level 26, Anion Gap 13, Blood Urea Nitrogen 39H, Creatinine 1.2, Estimat Glomerular Filtration Rate , Glucose Level 94, Calcium Level 9.2, Total Bilirubin 0.3, Aspartate Amino Transf (AST/SGOT) 93H, Alanine Aminotransferase (ALT/SGPT) 100H, Alkaline Phosphatase 101, Total Protein 6.8, Albumin 2.2L, Globulin 4.6, Albumin/Globulin Ratio 0.4L, Pro-B- Type Natriuretic Peptide 8929H, Giant Platelets Occasional, Hypochromasia 1+, Anisocytosis 2+, Arterial Blood pH 7.446, Arterial Blood Partial Pressure CO2 46.3H, Arterial Blood Partial Pressure O2 65.3L, Arterial Blood HCO3 31.2H, Arterial Blood Oxygen Saturation 93.0, Arterial Blood Base Excess 6.4, Jones Test Positive, Direct Bilirubin 0.1, Random Amikacin Level 18.3 Current Medications Medications (Trade) Dose Ordered Sig/Estelle Route PRN Reason Start Time Stop Time Status Last Admin Dose Admin Acetaminophen (Tylenol) 650 mg Q4H PRN ORAL fever 10/21/16 13:45 11/20/16 13:44 Albuterol/ Ipratropium (DuoNeb 0.5-3(2.5)mg/3ml) 3 ml Q4H PRN HHN Shortness of Breath 10/21/16 13:45 10/26/16 13:44 Amikacin Protocol (Amikacin pharmacy to dose) 1 ea DAILY PRN MISC PER RX PROTOCOL 10/21/16 14:15 11/20/16 14:14 Amikacin Sulfate 1000 mg/Sodium Chloride 114 ml @ 228 mls/hr Q48H IV 10/23/16 16:00 10/28/16 15:59 Chlorhexidine Gluconate (Ada-Hex 2%) 1 applic DAILY TOPIC 10/22/16 09:00 11/21/16 08:59 Ertapenem 1 gm/ Sodium Chloride 55 ml @ 110 mls/hr Q24H IV 10/21/16 15:00 10/26/16 14:59 10/21/16 15:10 Heparin Sodium (Porcine) (Heparin 5000 units/ml) 5,000 units EVERY 12 HOURS SUBQ 10/21/16 21:00 11/20/16 20:59 Lorazepam (Ativan 2mg/ml 1ml) 2 mg Q2H PRN IV For Anxiety 10/21/16 13:45 10/28/16 13:44 Morphine Sulfate (Morphine Sulfate) 4 mg Q4H PRN IVP Severe Pain (Pain Scale 7-10) 10/21/16 13:45 10/28/16 13:44 Norepinephrine Bitartrate 8 mg/ Dextrose 508 ml @ 0 mls/hr Q24H IV 10/21/16 20:35 11/20/16 20:34 10/22/16 05:55 Ondansetron HCl (Zofran) 4 mg Q6H PRN IVP Nausea & Vomiting 10/21/16 13:45 11/20/16 13:44 Pantoprazole (Protonix) 40 mg EVERY 12 HOURS ORAL 10/21/16 21:00 11/20/16 20:59 10/22/16 09:02 Polyethylene Glycol (Miralax) 17 gm DAILYPRN PRN ORAL Constipation 10/21/16 13:45 11/20/16 13:44 Sodium Chloride 1,000 ml @ 100 mls/hr Q10H IVLG 10/21/16 14:00 11/20/16 13:59 10/22/16 09:02 Vancomycin HCl (Vanco rx to dose) 1 ea DAILY PRN MISC PER RX PROTOCOL 10/21/16 14:00 11/20/16 13:59 Vancomycin/Sodium Chloride 250 ml @ 166.667 mls/hr Q12HR@0600,1800 IVPB 10/22/16 06:00 10/27/16 05:59 10/22/16 05:54 RADHA SPANGLER Oct 22, 2016 10:36
--- NOTE | 2016-10-22 11:11 | Diagnostic Imaging Report ---
Indication:Abdominal pain Technique: Grayscale and duplex Doppler imaging of the abdomen performed. Comparison: None Findings: The study was limited because patient has altered level of consciousness and could not adequately cooperate for the scan. Gallbladder is contracted. No obvious gallstones identified. Sonographic Fuentes's is reported as negative. There is trace ascites present. CBD is between 6 and 7 mm. Calcification is noted within the spleen. There is a cyst in the left kidney measuring 2.2 cm. There are several tiny cysts within both kidneys. The kidneys appear echogenic. There is no hydronephrosis. The liver demonstrates relatively coarsened echotexture. The pancreas is grossly unremarkable. The tail is obscured by bowel gas. Flow measures of the portal vein appear unremarkable. Impression: Limited evaluation due to patient combativeness. Calcified granulomata within the spleen. Suspected medical renal disease. Renal cysts. Contracted gallbladder not evaluated well.
[2016-10-22] MEDS: Ertapenem 1 GM in NS 55 ML IV SCH (15:01)
--- NOTE | 2016-10-22 15:43 | Infectious Diseases Prog Note ---
Assessment/Plan Assessment/Plan ASSESSMENT: Multilobar pneumonia --severe sepsis, requiring 1 pressor, still on 22mcg norepi. TTE demonstrates significant systolic dysfunction with dilated IVC arguing against hypovolemic shock. Treating as multilobar pneumonia, r/o bacteremia, r/o hepatic encephalopathy (ammonia nl) , probable mild shock liver although he has fairly echogenic liver on u/s. U/S negative for acute biliary disease --severe hypothermia s/p GABE hugger --no leukocytosis, + bandemia --multilobar pneumonia with superimposed pulmonary edema --thrombocytopenia, uncertain duration --moderate transaminitis, uncertain duration acute viral hepatitis panel negative --h/o regular lactulose administration at [facility]; query h/o chronic liver disease --h/o depakote for mood d/o --hyperkalemia, improved --hypercalemia, corrected for hypoalb to 11.3 mg/dL --U/A negative for UTI --elevated TSH PLAN: --continue empiric IV vanc, amikacin, and ertapenem D#2 --f/u blood cx x2 --f/u sputum cx --f/u MRSA and VRE screening --aspiration precautions, vent care, trach care --skin care Subjective ROS Limited/Unobtainable: Yes Allergies: Coded Allergies: No Known Allergies (Unverified , 10/21/16) Objective Vital Signs Last 24 Hour Vital Signs Date Time Temp Pulse Resp B/P (MAP) Pulse Ox O2 Delivery O2 Flow Rate FiO2 10/22/16 15:30 113/63 10/22/16 15:20 96 21 50 10/22/16 14:00 98.5 100 24 116/63 97 Mechanical Ventilator 50 10/22/16 13:59 111/57 10/22/16 13:45 94 19 111/57 98 Mechanical Ventilator 50 10/22/16 13:30 96 20 108/58 97 Mechanical Ventilator 50 10/22/16 13:30 100 22 50 10/22/16 13:15 96 20 110/61 97 Mechanical Ventilator 50 10/22/16 13:00 100 21 109/58 97 Mechanical Ventilator 50 10/22/16 12:45 99 21 116/60 97 Mechanical Ventilator 50 10/22/16 12:30 97 20 111/57 97 Mechanical Ventilator 50 10/22/16 12:15 100 20 108/60 97 Mechanical Ventilator 50 8/25/17 12:00 50 10/22/16 12:00 98.5 102 19 114/59 97 Mechanical Ventilator 50 10/22/16 12:00 99 10/22/16 11:45 99 21 109/57 97 Mechanical Ventilator 50 10/22/16 11:30 98 20 104/55 97 Mechanical Ventilator 50 10/22/16 11:27 98 20 50 10/22/16 11:15 97 20 101/56 97 Mechanical Ventilator 50 10/22/16 11:09 101/56 10/22/16 11:00 98 18 101/56 97 Mechanical Ventilator 50 10/22/16 10:45 100 20 103/55 95 Mechanical Ventilator 50 10/22/16 10:30 104 20 63/46 94 Mechanical Ventilator 60 10/22/16 10:30 68/46 10/22/16 10:15 105 21 79/42 96 Mechanical Ventilator 60 10/22/16 10:00 105 21 87/52 96 Mechanical Ventilator 60 10/22/16 09:45 108 21 80/50 96 Mechanical Ventilator 60 10/22/16 09:30 97 20 50 10/22/16 09:30 107 21 93/44 95 Mechanical Ventilator 60 10/22/16 09:15 108 21 94/44 95 Mechanical Ventilator 60 10/22/16 09:00 106 21 94/47 96 Mechanical Ventilator 60 10/22/16 09:00 100/53 10/22/16 08:45 102 23 100/55 98 Mechanical Ventilator 60 10/22/16 08:30 102 22 99/51 98 Mechanical Ventilator 60 10/22/16 08:15 102 23 98/48 97 Mechanical Ventilator 60 10/22/16 08:00 60 10/22/16 08:00 98.3 97 22 95/50 97 Mechanical Ventilator 60 10/22/16 08:00 99 10/22/16 07:45 96 23 98/56 97 Mechanical Ventilator 60 10/22/16 07:30 94 22 94/56 97 Mechanical Ventilator 60 10/22/16 07:30 106 20 50 10/22/16 07:15 93 22 100/56 97 Mechanical Ventilator 60 10/22/16 07:00 95 21 101/56 98 Mechanical Ventilator 60 10/22/16 06:45 93 21 105/50 97 Mechanical Ventilator 60 10/22/16 06:30 62 21 105/50 97 Mechanical Ventilator 60 10/22/16 06:15 93 21 101/55 96 Mechanical Ventilator 60 10/22/16 06:00 93 21 99/57 96 Mechanical Ventilator 60 10/22/16 05:55 102/55 10/22/16 05:45 92 21 98/56 96 Mechanical Ventilator 60 10/22/16 05:30 91 21 102/55 96 Mechanical Ventilator 60 10/22/16 05:15 90 21 104/57 95 Mechanical Ventilator 60 10/22/16 05:00 93 22 103/55 95 Mechanical Ventilator 60 10/22/16 04:57 89 20 60 10/22/16 04:45 89 21 102/53 95 Mechanical Ventilator 60 10/22/16 04:30 91 21 105/53 95 Mechanical Ventilator 60 10/22/16 04:00 92 10/22/16 04:00 60 10/22/16 04:00 98.1 91 17 105/58 95 Mechanical Ventilator 60 10/22/16 03:30 89 17 105/55 95 Mechanical Ventilator 60 10/22/16 03:01 86 18 60 10/22/16 03:00 86 17 111/56 95 Mechanical Ventilator 60 10/22/16 02:30 91 17 99/57 98 Mechanical Ventilator 60 10/22/16 02:00 89 17 101/56 98 Mechanical Ventilator 60 10/22/16 01:30 89 17 101/57 98 Mechanical Ventilator 60 10/22/16 01:29 91 16 60 10/22/16 01:29 99/58 10/22/16 01:00 89 17 99/58 98 Mechanical Ventilator 60 10/22/16 00:30 89 17 104/57 98 Mechanical Ventilator 60 10/22/16 00:00 97.9 89 17 104/57 98 Mechanical Ventilator 60 10/22/16 00:00 87 10/21/16 23:45 89 17 104/57 98 Mechanical Ventilator 60 10/21/16 23:30 88 16 101/56 98 Mechanical Ventilator 60 10/21/16 23:25 93 16 60 10/21/16 23:15 88 16 101/59 98 Mechanical Ventilator 60 10/21/16 23:00 89 16 99/57 98 Mechanical Ventilator 60 10/21/16 22:45 88 17 98/61 97 Mechanical Ventilator 60 10/21/16 22:30 87 17 98/61 98 Mechanical Ventilator 60 10/21/16 22:15 86 17 100/63 98 Mechanical Ventilator 60 10/21/16 22:00 87 18 103/60 98 Mechanical Ventilator 60 10/21/16 21:45 88 18 104/59 98 Mechanical Ventilator 60 10/21/16 21:30 88 18 106/58 99 Mechanical Ventilator 60 10/21/16 21:19 84 20 60 10/21/16 21:15 87 18 104/56 100 Mechanical Ventilator 60 10/21/16 21:00 88 18 104/56 100 Mechanical Ventilator 60 10/21/16 20:45 87 17 105/62 100 Mechanical Ventilator 60 10/21/16 20:40 95/54 10/21/16 20:30 78 16 92/59 100 Mechanical Ventilator 60 10/21/16 20:15 81 16 59/42 100 Mechanical Ventilator 70 10/21/16 20:00 70 10/21/16 20:00 80 16 77/52 100 Mechanical Ventilator 70 10/21/16 20:00 73 10/21/16 19:45 79 16 77/52 100 Mechanical Ventilator 70 10/21/16 19:30 97.9 88 17 102/61 100 Mechanical Ventilator 90 10/21/16 19:29 92 23 70 10/21/16 18:15 97.5 90 20 101/59 100 Mechanical Ventilator 90 10/21/16 18:15 101/59 10/21/16 18:00 98/57 10/21/16 18:00 92 18 98/57 100 Mechanical Ventilator 90 10/21/16 17:45 96.5 91 19 106/66 100 Mechanical Ventilator 90 10/21/16 17:30 117/87 10/21/16 17:30 92 20 101/41 100 Mechanical Ventilator 90 10/21/16 17:16 90 22 70 10/21/16 17:15 91 19 117/87 100 Mechanical Ventilator 90 10/21/16 17:00 93.9 86 21 130/84 100 Mechanical Ventilator 90 10/21/16 16:45 78 16 145/65 100 Mechanical Ventilator 90 10/21/16 16:37 108/65 10/21/16 16:30 72 16 108/65 100 Mechanical Ventilator 90 10/21/16 16:15 72 20 108/60 100 Mechanical Ventilator 90 10/21/16 16:00 73 10/21/16 16:00 93.5 71 20 121/80 100 Mechanical Ventilator 90 10/21/16 15:45 72 20 97/74 100 Mechanical Ventilator 90 Height (Feet): 5 Height (Inches): 10.00 Weight (Pounds): 165 Objective General Appearance: not responsive, no apparent distress, intubated on vent. levophed currently at 22mcg/min. Head: normocephalic, atraumatic Eyes: bilateral eye PERRL, bilateral eye EOMI ENT: normal ENT inspection, hearing grossly normal, normal voice Neck: normal inspection, full range of motion, supple, no meningismus, no bony tend. R IJ placed 10/21/16, c/d/i Respiratory: normal inspection, chest non-tender, no respiratory distress, no retraction, no accessory muscle use, +rhonchi, diffuse wheezes throughout. minimal trach asp. Cardiovascular #1: regular rate, rhythm, no edema Gastrointestinal: normal inspection, normal bowel sounds, non tender, soft, no guarding, no hernia Genitourinary: no CVA tenderness Musculoskeletal: normal inspection Neurologic: unresponsive Psychiatric: normal inspection, judgement/insight normal, mood/affect normal Skin: normal inspection, normal color, no rash. several non erythematous, non purulent punched out lesions on pretibial spaces. skin warm, prefusing distally on levophed. Microbiology Date/Time Source Procedure Growth Status 10/22/16 04:00 Sputum Gram Stain - Final Resulted 10/22/16 04:00 Sputum Sputum Culture Pending Resulted Laboratory Tests Test 10/21/16 17:10 10/22/16 04:30 Prothrombin Time 11.5 SEC (9.30-11.50) Prothromb Time International Ratio 1.1 (0.9-1.1) Activated Partial Thromboplast Time 36 SEC (23-33) H Ammonia 27 umol/L (16-60) Pro-B-Type Natriuretic Peptide 5589 pg/mL (0-125) H 8929 pg/mL (0-125) H Thyroid Stimulating Hormone (TSH) 9.970 uIU/mL (0.300-4.500) Valproic Acid (Depakene) Level 12 ug/mL (50-100) L Hepatitis A IgM Antibody Negative (Negative) Hepatitis B Surface Antigen Negative (Negative) Hepatitis B Core IgM Antibody Negative (Negative) Hepatitis C Antibody 0.3 s/co ratio (0.0-0.9) White Blood Count 10.4 K/UL (4.8-10.8) Red Blood Count 3.00 M/UL (4.70-6.10) L Hemoglobin 9.1 G/DL (14.2-18.0) L Hematocrit 28.2 % (42.0-52.0) L Mean Corpuscular Volume 94 FL (80-99) Mean Corpuscular Hemoglobin 30.4 PG (27.0-31.0) Mean Corpuscular Hemoglobin Concent 32.2 G/DL (32.0-36.0) Red Cell Distribution Width 20.5 % (11.6-14.8) H Platelet Count 73 K/UL (150-450) L Mean Platelet Volume 10.7 FL (6.5-10.1) H Neutrophils (%) (Auto) % (45.0-75.0) Lymphocytes (%) (Auto) % (20.0-45.0) Monocytes (%) (Auto) % (1.0-10.0) Eosinophils (%) (Auto) % (0.0-3.0) Basophils (%) (Auto) % (0.0-2.0) Differential Total Cells Counted 100 Neutrophils % (Manual) 65 % (45-75) Lymphocytes % (Manual) 19 % (20-45) L Monocytes % (Manual) 4 % (1-10) Eosinophils % (Manual) 0 % (0-3) Basophils % (Manual) 0 % (0-2) Band Neutrophils 12 % (0-8) H Platelet Estimate Decreased L Platelet Morphology Giant Platelets Occasional Hypochromasia 1+ Anisocytosis 2+ Arterial Blood pH 7.446 (7.350-7.450) Arterial Blood Partial Pressure CO2 46.3 mmHg (35.0-45.0) H Arterial Blood Partial Pressure O2 65.3 mmHg (75.0-100.0) L Arterial Blood HCO3 31.2 mmol/L (22.0-26.0) H Arterial Blood Oxygen Saturation 93.0 % (92.0-98.0) Arterial Blood Base Excess 6.4 Jones Test Positive Sodium Level 144 mEQ/L (135-145) Potassium Level 5.3 mEQ/L (3.4-4.9) H Chloride Level 105 mEQ/L (98-107) Carbon Dioxide Level 26 mEQ/L (20-30) Anion Gap 13 (5-15) Blood Urea Nitrogen 39 mg/dL (7-23) H Creatinine 1.2 mg/dL (0.7-1.2) Estimat Glomerular Filtration Rate mL/min (>60) Glucose Level 94 mg/dL (74-106) Calcium Level 9.2 mg/dL (8.6-10.2) Total Bilirubin 0.3 mg/dL (0.0-1.2) Direct Bilirubin 0.1 mg/dL (0.1-0.3) Aspartate Amino Transf (AST/SGOT) 93 U/L (5-40) H Alanine Aminotransferase (ALT/SGPT) 100 U/L (3-41) H Alkaline Phosphatase 101 U/L (40-129) Total Protein 6.8 g/dL (6.6-8.7) Albumin 2.2 g/dL (3.5-5.2) L Globulin 4.6 g/dL Albumin/Globulin Ratio 0.4 (1.0-2.7) L Random Amikacin Level 18.3 ug/mL Current Medications Medications (Trade) Dose Ordered Sig/Estelle Route PRN Reason Start Time Stop Time Status Last Admin Dose Admin Acetaminophen (Tylenol) 650 mg Q4H PRN ORAL fever 10/21/16 13:45 11/20/16 13:44 Albuterol/ Ipratropium (DuoNeb 0.5-3(2.5)mg/3ml) 3 ml Q4H PRN HHN Shortness of Breath 10/21/16 13:45 10/26/16 13:44 Amikacin Protocol (Amikacin pharmacy to dose) 1 ea DAILY PRN MISC PER RX PROTOCOL 10/21/16 14:15 11/20/16 14:14 Amikacin Sulfate 1000 mg/Sodium Chloride 114 ml @ 228 mls/hr Q48H IV 10/23/16 16:00 10/28/16 15:59 Chlorhexidine Gluconate (Ada-Hex 2%) 1 applic DAILY TOPIC 10/22/16 09:00 11/21/16 08:59 Ertapenem 1 gm/ Sodium Chloride 55 ml @ 110 mls/hr Q24H IV 10/21/16 15:00 10/26/16 14:59 10/22/16 15:01 Heparin Sodium (Porcine) (Heparin 5000 units/ml) 5,000 units EVERY 12 HOURS SUBQ 10/21/16 21:00 11/20/16 20:59 Lorazepam (Ativan 2mg/ml 1ml) 2 mg Q2H PRN IV For Anxiety 10/21/16 13:45 10/28/16 13:44 Morphine Sulfate (Morphine Sulfate) 4 mg Q4H PRN IVP Severe Pain (Pain Scale 7-10) 10/21/16 13:45 10/28/16 13:44 Norepinephrine Bitartrate 8 mg/ Dextrose 508 ml @ 0 mls/hr Q24H IV 10/21/16 20:35 11/20/16 20:34 10/22/16 11:09 Ondansetron HCl (Zofran) 4 mg Q6H PRN IVP Nausea & Vomiting 10/21/16 13:45 11/20/16 13:44 Pantoprazole (Protonix) 40 mg EVERY 12 HOURS ORAL 10/21/16 21:00 11/20/16 20:59 10/22/16 09:02 Polyethylene Glycol (Miralax) 17 gm DAILYPRN PRN ORAL Constipation 10/21/16 13:45 11/20/16 13:44 Sodium Chloride 1,000 ml @ 100 mls/hr Q10H IVLG 10/21/16 14:00 11/20/16 13:59 10/22/16 09:02 Vancomycin HCl (Vanco rx to dose) 1 ea DAILY PRN MISC PER RX PROTOCOL 10/21/16 14:00 11/20/16 13:59 Vancomycin/Sodium Chloride 250 ml @ 166.667 mls/hr Q12HR@0600,1800 IVPB 10/22/16 06:00 10/27/16 05:59 10/22/16 05:54 Jesse Campbell M.D. Oct 22, 2016 15:43
[2016-10-22] MEDS ORDERED: D5W 550ml IV ONE (17:13)
[2016-10-22] MEDS ORDERED: Tubing IV Secondary IV ONE (17:13)
--- NOTE | 2016-10-22 18:47 | Cardiology Report ---
APPROVED REPORT EXAM: Two-dimensional and M-mode echocardiogram with Doppler and color Doppler. INDICATION Left ventricular function M-Mode DIMENSIONS IVSd1.2 (0.7-1.1cm)Left Atrium (MM)4.1 (1.6-4.0cm) LVDd6.2 (3.5-5.6cm)Aortic Root3.4 (2.0-3.7cm) PWd1.3 (0.7-1.1cm)Aortic Cusp Exc.2.0 (1.5-2.0cm) LVDs4.9 (2.5-4.0cm) PWs1.7 cm Moderate left ventricular enlargement. Global left ventricular hypokinesis. Akintic thinned basal and mid posterior akinesis, skinetic inferior adn posterior ain inferolateral ponce Left ventricular ejection fraction estimated to be 30-35 %. No evidence of left ventricular hypertrophy. No evidence of pericardial fat or effusion. Moderate left atrial enlargement by 2D. Mild right atrial enlargement by 2D. Focal aortic valve sclerosis with adequate cusp excursion Thickened mitral valve leaflets with normal excursion. Mitral annulus and aortic root calcification. Pulmonic valve not well visualized. Normal tricuspid valve structure. IVC dilated at 2.6cm with no physiological collapse. RA pressure of 20mmHg. spontaneous echo contrast noted suggestive of low flow state in lyn LV A color flow and spectral Doppler study was performed and revealed: Trace aortic regurgitation. Moderate mitral regurgitation. Left ventricular diastolic dysfunction grade 1. Trace tricuspid regurgitation. Tricuspid systolic velocities suggests peak right ventricular systolic pressure of 45 mmHg Consistent with mild pulmonary hypertension. Pulmonic regurgitation present.
[2016-10-23] VITALS (96 sets, daily range): BP systolic 80–126; BP diastolic 33–95
[2016-10-23 05:47] LABS: MEAN CORPUSCULAR HEMOGLOBIN 30.9 PG (27.0-31.0); MEAN CORPUSCULAR HGB CONC 32.8 G/DL (32.0-36.0); MEAN CORPUSCULAR VOLUME 94 FL (80-99); MEAN PLATELET VOLUME 9.5 FL (6.5-10.1); PLATELET COUNT 58 K/UL (150-450); RED BLOOD COUNT 2.69 M/UL (4.70-6.10); RED CELL DISTRIBUTION WIDTH 20.1 % (11.6-14.8); WHITE BLOOD COUNT 12.2 K/UL (4.8-10.8)
[2016-10-23] MEDS: Vancomycin 750mg/NS 250ml IVPB SCH (06:00)
[2016-10-23 06:14] LABS: ALANINE AMINOTRANSFERASE 186 U/L (3-41); ALBUMIN/GLOBULIN RATIO 0.4 (1.0-2.7); ANION GAP 10 (5-15); ASPARTATE AMINO TRANSFERASE 428 U/L (5-40); CALCIUM 9.2 mg/dL (8.6-10.2); CARBON DIOXIDE 26 mEQ/L (20-30); CHLORIDE 109 mEQ/L (98-107); CREATININE 1.1 mg/dL (0.7-1.2); HEMOLYSIS 3; POTASSIUM 4.8 mEQ/L (3.4-4.9); SODIUM 145 mEQ/L (135-145); TOTAL PROTEIN 6.6 g/dL (6.6-8.7)
[2016-10-23 06:18] LABS: MAGNESIUM 1.7 mg/dL (1.7-2.5); PHOSPHORUS 5.1 mg/dL (2.5-4.8)
--- NOTE | 2016-10-23 08:55 | Diagnostic Imaging Report ---
Indication: Dyspnea Comparison: 10/21/16 A single view chest radiograph was obtained. Findings: Patchy airspace disease again demonstrated bilaterally. Tubes and lines are stable. 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
[2016-10-23] MEDS: Dyna-Hex 2% Top Sol 8oz TOPIC SCH (09:00)
[2016-10-23 09:05] LABS: ANISOCYTOSIS 2+; BAND NEUTROPHILS % (MANUAL) 12 % (0-8); BASOPHILS % (MANUAL) 0 % (0-2); EOSINOPHILS % (MANUAL) 0 % (0-3); HYPOCHROMASIA 1+; LYMPHOCYTES % (MANUAL) 16 % (20-45); NEUTROPHILS % (MANUAL) 65 % (45-75); PLATELET ESTIMATE DECREASED; PLATELET MORPHOLOGY NORMAL; TOTAL CELLS COUNTED 100
[2016-10-23 12:29] LABS: ABG ALLEN TEST POSITIVE; ABG BASE EXCESS 2.7; ABG PCO2 53.5 mmHg (35.0-45.0)
--- NOTE | 2016-10-23 13:39 | Infectious Diseases Prog Note ---
Assessment/Plan Assessment/Plan ASSESSMENT: Multilobar pneumonia --severe sepsis, requiring 1 pressor, still on norepi but down to 4mcg/min. TTE demonstrates significant systolic dysfunction with dilated IVC arguing against hypovolemic shock. Treating as multilobar pneumonia, r/o hepatic encephalopathy (ammonia nl), has hypoxemic encephalopathy, worsening shock liver on >48hrs pressors, and his limited RUQ u/s is suggestive of underlying cirrhosis. U/S negative for acute biliary disease --severe hypothermia s/p GABE hugger, resolved --slight leukocytosis today, + bandemia --multilobar pneumonia with superimposed pulmonary edema sputum growing GNR, pending ID, was obtained after 24 hrs abx --GPC in blood, one of 4 bottles obtained 8 hrs after admission, pending ident admission blood cx from 8 AM remain ngtd --thrombocytopenia, uncertain duration, worsening down to 58 today --shock liver with worsening transaminitis on pressors acute viral hepatitis panel negative --probable h/o chronic liver disease --h/o depakote for mood d/o --hyperkalemia, improved --hypercalemia, corrected for hypoalb to 11.3 mg/dL --U/A negative for UTI --elevated TSH --hypoalbuminemia --VRE colonized PLAN: --continue empiric IV vanc, amikacin, and ertapenem D#3 --f/u blood cx from 824 PM now growing one of 4 bottles GPC in clusters --repeat blood cx x2 sets now, one from peripheral stick, one from R IJ --f/u sputum cx --aspiration precautions, vent care, trach care --skin care --contact isolation per hospital policy Subjective ROS Limited/Unobtainable: Yes Allergies: Coded Allergies: No Known Allergies (Unverified , 10/21/16) Objective Vital Signs Last 24 Hour Vital Signs Date Time Temp Pulse Resp B/P (MAP) Pulse Ox O2 Delivery O2 Flow Rate FiO2 10/23/16 13:15 78 16 94/51 99 Mechanical Ventilator 50 10/23/16 13:00 92/72 10/23/16 13:00 90 22 92/72 100 Mechanical Ventilator 50 10/23/16 12:45 83 17 97/56 99 Mechanical Ventilator 50 10/23/16 12:30 91 26 103/65 100 Mechanical Ventilator 50 10/23/16 12:15 88 22 88/57 100 Mechanical Ventilator 50 10/23/16 12:00 50 10/23/16 12:00 98.6 83 19 118/61 98 Mechanical Ventilator 50 10/23/16 12:00 118/61 10/23/16 12:00 79 10/23/16 11:45 87 14 100/57 99 Mechanical Ventilator 50 10/23/16 11:30 81 24 98/57 95 Mechanical Ventilator 50 10/23/16 11:15 82 18 107/61 96 Mechanical Ventilator 50 10/23/16 11:10 80 16 50 10/23/16 11:00 118/61 10/23/16 11:00 87 17 101/56 97 Mechanical Ventilator 50 10/23/16 10:45 75 21 101/51 99 Mechanical Ventilator 50 10/23/16 10:30 77 17 93/59 99 Mechanical Ventilator 50 10/23/16 10:15 79 21 105/64 99 Mechanical Ventilator 50 10/23/16 10:00 90 21 105/64 99 Mechanical Ventilator 50 10/23/16 10:00 102/57 10/23/16 09:45 75 16 95/48 99 Mechanical Ventilator 50 10/23/16 09:30 81 16 97/58 99 Mechanical Ventilator 50 10/23/16 09:30 86 18 50 10/23/16 09:15 78 16 98/49 99 Mechanical Ventilator 50 10/23/16 09:00 95/48 10/23/16 09:00 75 16 95/48 99 Mechanical Ventilator 50 10/23/16 08:45 81 16 111/61 99 Mechanical Ventilator 50 10/23/16 08:30 85 17 88/71 99 Mechanical Ventilator 50 10/23/16 08:15 84 17 111/58 99 Mechanical Ventilator 50 10/23/16 08:00 90 10/23/16 08:00 50 10/23/16 08:00 108/57 10/23/16 08:00 98.3 77 17 108/57 99 Mechanical Ventilator 50 10/23/16 07:45 86 16 98/55 98 Mechanical Ventilator 50 10/23/16 07:30 77 16 112/57 99 Mechanical Ventilator 50 10/23/16 07:20 80 16 50 10/23/16 07:15 73 16 100/62 100 Mechanical Ventilator 50 10/23/16 07:00 73 16 99/52 100 Mechanical Ventilator 50 10/23/16 06:45 75 16 87/47 100 Mechanical Ventilator 50 10/23/16 06:30 82 16 88/47 100 Mechanical Ventilator 50 10/23/16 06:15 78 16 93/46 100 Mechanical Ventilator 50 10/23/16 06:00 76 16 95/50 100 Mechanical Ventilator 50 10/23/16 05:45 76 16 95/50 100 Mechanical Ventilator 50 10/23/16 05:30 76 16 100/53 99 Mechanical Ventilator 50 10/23/16 05:24 78 17 50 10/23/16 05:15 87 21 113/55 99 Mechanical Ventilator 50 10/23/16 05:00 87 19 93/54 99 Mechanical Ventilator 50 10/23/16 04:45 84 18 93/54 99 Mechanical Ventilator 50 10/23/16 04:30 75 16 100/56 99 Mechanical Ventilator 50 10/23/16 04:15 76 16 94/55 98 Mechanical Ventilator 50 10/23/16 04:00 98.0 79 16 96/52 97 Mechanical Ventilator 50 10/23/16 04:00 79 10/23/16 04:00 50 10/23/16 03:45 76 16 96/52 98 Mechanical Ventilator 50 10/23/16 03:30 75 16 93/54 98 Mechanical Ventilator 50 10/23/16 03:16 79 16 50 10/23/16 03:15 77 16 120/63 98 Mechanical Ventilator 50 10/23/16 03:00 76 16 98/55 98 Mechanical Ventilator 50 10/23/16 02:45 75 16 106/52 98 Mechanical Ventilator 50 10/23/16 02:30 80 17 102/59 98 Mechanical Ventilator 50 10/23/16 02:15 79 16 107/60 98 Mechanical Ventilator 50 10/23/16 02:00 79 16 107/60 98 Mechanical Ventilator 50 10/23/16 01:45 80 21 101/64 97 Mechanical Ventilator 50 10/23/16 01:30 93 21 101/64 99 Mechanical Ventilator 50 10/23/16 01:25 85 16 50 10/23/16 01:24 92/50 10/23/16 01:15 82 18 92/50 98 Mechanical Ventilator 50 10/23/16 01:00 80 16 126/95 100 Mechanical Ventilator 50 10/23/16 00:45 80 16 106/54 99 Mechanical Ventilator 50 10/23/16 00:30 78 16 102/57 98 Mechanical Ventilator 50 10/23/16 00:15 78 16 96/61 98 Mechanical Ventilator 50 10/23/16 00:00 78 10/23/16 00:00 50 10/23/16 00:00 98.0 78 16 103/55 98 Mechanical Ventilator 50 10/22/16 23:45 79 16 115/62 99 Mechanical Ventilator 50 10/22/16 23:30 79 17 114/61 98 Mechanical Ventilator 50 10/22/16 23:15 83 18 109/81 98 Mechanical Ventilator 50 10/22/16 23:14 82 16 50 10/22/16 23:00 81 16 113/59 99 Mechanical Ventilator 50 10/22/16 22:45 80 16 107/65 99 Mechanical Ventilator 50 10/22/16 22:30 79 16 99/73 99 Mechanical Ventilator 50 10/22/16 22:15 79 16 107/58 99 Mechanical Ventilator 50 10/22/16 22:00 81 16 102/59 98 Mechanical Ventilator 50 10/22/16 21:45 83 16 104/56 97 Mechanical Ventilator 50 10/22/16 21:30 80 16 105/58 98 Mechanical Ventilator 50 10/22/16 21:15 83 16 105/58 98 Mechanical Ventilator 50 10/22/16 21:15 73 17 50 10/22/16 21:00 83 16 105/58 98 Mechanical Ventilator 50 10/22/16 20:45 84 17 105/58 98 Mechanical Ventilator 50 10/22/16 20:30 85 18 108/65 98 Mechanical Ventilator 50 10/22/16 20:15 83 16 104/59 98 Mechanical Ventilator 50 10/22/16 20:00 50 10/22/16 20:00 98.1 81 16 117/68 97 Mechanical Ventilator 50 10/22/16 20:00 80 10/22/16 19:45 81 16 110/62 97 Mechanical Ventilator 50 10/22/16 19:30 83 18 105/58 98 Mechanical Ventilator 50 10/22/16 19:15 82 17 109/58 97 Mechanical Ventilator 50 10/22/16 19:12 84 18 50 10/22/16 19:00 86 18 110/59 98 Mechanical Ventilator 50 10/22/16 18:45 81 17 108/63 99 Mechanical Ventilator 50 10/22/16 18:45 108/63 10/22/16 18:30 83 17 106/62 98 Mechanical Ventilator 50 10/22/16 18:15 84 17 105/57 97 Mechanical Ventilator 50 10/22/16 18:00 86 17 100/52 97 Mechanical Ventilator 50 10/22/16 17:45 92 21 99/53 96 Mechanical Ventilator 50 17 17:30 93 20 112/49 96 Mechanical Ventilator 50 10/22/16 17:15 91 20 109/60 97 Mechanical Ventilator 50 10/22/16 17:14 88 20 50 10/22/16 17:00 93 22 110/62 98 Mechanical Ventilator 50 10/22/16 17:00 110/62 10/22/16 16:45 93 18 113/60 97 Mechanical Ventilator 50 10/22/16 16:30 106/60 10/22/16 16:30 90 17 108/58 97 Mechanical Ventilator 50 10/22/16 16:15 90 19 106/60 97 Mechanical Ventilator 50 10/22/16 16:00 98.5 91 19 111/60 97 Mechanical Ventilator 50 10/22/16 16:00 50 10/22/16 16:00 90 10/22/16 15:45 93 19 111/60 97 Mechanical Ventilator 50 10/22/16 15:30 92 19 113/63 97 Mechanical Ventilator 50 10/22/16 15:30 113/63 10/22/16 15:20 96 21 50 10/22/16 15:15 94 19 114/60 98 Mechanical Ventilator 50 10/22/16 15:00 96 19 120/62 98 Mechanical Ventilator 50 10/22/16 14:45 94 19 110/63 98 Mechanical Ventilator 50 10/22/16 14:30 97 19 122/61 98 Mechanical Ventilator 50 10/22/16 14:15 92 19 104/37 97 Mechanical Ventilator 50 10/22/16 14:00 98.5 100 24 116/63 97 Mechanical Ventilator 50 10/22/16 13:59 111/57 10/22/16 13:45 94 19 111/57 98 Mechanical Ventilator 50 Height (Feet): 5 Height (Inches): 10.00 Weight (Pounds): 166 Objective General Appearance: not responsive, no apparent distress, intubated on vent with trach. levophed currently at 4mcg/min down from 20mcg/min yesterday. Head: normocephalic, atraumatic Eyes: bilateral eye PERRL, bilateral eye EOMI ENT: normal ENT inspection, hearing grossly normal, normal voice, trach c/d/i. Neck: normal inspection, full range of motion, supple, no meningismus, no bony tend. R IJ placed 10/21/16, c/d/i Respiratory: normal inspection, chest non-tender, no respiratory distress, no retraction, no accessory muscle use, +rhonchi, diffuse wheezes throughout. rhonchi worse at R lung base. copious but thin trach aspirate. Cardiovascular #1: regular rate, rhythm, no edema Gastrointestinal: normal inspection, normal bowel sounds, non tender, soft, no guarding. periumbilical hernia is easily reducible Genitourinary: no CVA tenderness. condom cath in place Musculoskeletal: normal inspection Skin: normal inspection, normal color, no rash. several non erythematous, non purulent punched out lesions on pretibial spaces. skin warm, peffusing distally on levophed. Microbiology Date/Time Source Procedure Growth Status 10/21/16 17:10 Blood Blood Culture - Preliminary Resulted 10/21/16 17:10 Blood Blood Culture - Preliminary NO GROWTH AFTER 24 HOURS Resulted 10/21/16 10:55 Blood Blood Culture - Preliminary NO GROWTH AFTER 24 HOURS Resulted 10/21/16 10:40 Blood Blood Culture - Preliminary NO GROWTH AFTER 24 HOURS Resulted 10/22/16 04:00 Sputum Gram Stain - Final Resulted 10/22/16 04:00 Sputum Culture - Preliminary Gram Negative Bacillus 1 Resulted 10/21/16 12:11 Nasal Nares MRSA Culture - Final NO METHICILLIN RESISTANT STAPH AUREUS... Complete 10/21/16 12:11 Rectum VRE Culture - Final Enterococcus Faecalis - Vre Complete Laboratory Tests Test 10/23/16 04:30 10/23/16 12:22 White Blood Count 12.2 K/UL (4.8-10.8) H Red Blood Count 2.69 M/UL (4.70-6.10) L Hemoglobin 8.3 G/DL (14.2-18.0) L Hematocrit 25.4 % (42.0-52.0) L Mean Corpuscular Volume 94 FL (80-99) Mean Corpuscular Hemoglobin 30.9 PG (27.0-31.0) Mean Corpuscular Hemoglobin Concent 32.8 G/DL (32.0-36.0) Red Cell Distribution Width 20.1 % (11.6-14.8) H Platelet Count 58 K/UL (150-450) L Mean Platelet Volume 9.5 FL (6.5-10.1) Neutrophils (%) (Auto) % (45.0-75.0) Lymphocytes (%) (Auto) % (20.0-45.0) Monocytes (%) (Auto) % (1.0-10.0) Eosinophils (%) (Auto) % (0.0-3.0) Basophils (%) (Auto) % (0.0-2.0) Differential Total Cells Counted 100 Neutrophils % (Manual) 65 % (45-75) Lymphocytes % (Manual) 16 % (20-45) L Monocytes % (Manual) 7 % (1-10) Eosinophils % (Manual) 0 % (0-3) Basophils % (Manual) 0 % (0-2) Band Neutrophils 12 % (0-8) H Platelet Estimate Decreased L Platelet Morphology Normal Hypochromasia 1+ Anisocytosis 2+ Sodium Level 145 mEQ/L (135-145) Potassium Level 4.8 mEQ/L (3.4-4.9) Chloride Level 109 mEQ/L (98-107) H Carbon Dioxide Level 26 mEQ/L (20-30) Anion Gap 10 (5-15) Blood Urea Nitrogen 32 mg/dL (7-23) H Creatinine 1.1 mg/dL (0.7-1.2) Estimat Glomerular Filtration Rate mL/min (>60) Glucose Level 81 mg/dL (74-106) Calcium Level 9.2 mg/dL (8.6-10.2) Phosphorus Level 5.1 mg/dL (2.5-4.8) H Magnesium Level 1.7 mg/dL (1.7-2.5) Total Bilirubin 0.7 mg/dL (0.0-1.2) Aspartate Amino Transf (AST/SGOT) 428 U/L (5-40) H Alanine Aminotransferase (ALT/SGPT) 186 U/L (3-41) H Alkaline Phosphatase 150 U/L (40-129) H Total Protein 6.6 g/dL (6.6-8.7) Albumin 1.9 g/dL (3.5-5.2) L Globulin 4.7 g/dL Albumin/Globulin Ratio 0.4 (1.0-2.7) L Vancomycin Level Trough 20.4 ug/mL (5.0-12.0) H Arterial Blood pH 7.350 (7.350-7.450) Arterial Blood Partial Pressure CO2 53.5 mmHg (35.0-45.0) H Arterial Blood Partial Pressure O2 81.7 mmHg (75.0-100.0) Arterial Blood HCO3 28.9 mmol/L (22.0-26.0) H Arterial Blood Oxygen Saturation 95.0 % (92.0-98.0) Arterial Blood Base Excess 2.7 Jones Test Positive Current Medications Medications (Trade) Dose Ordered Sig/Estelle Route PRN Reason Start Time Stop Time Status Last Admin Dose Admin Acetaminophen (Tylenol) 650 mg Q4H PRN ORAL fever 10/21/16 13:45 11/20/16 13:44 Albuterol/ Ipratropium (DuoNeb 0.5-3(2.5)mg/3ml) 3 ml Q4H PRN HHN Shortness of Breath 10/21/16 13:45 10/26/16 13:44 Amikacin Protocol (Amikacin pharmacy to dose) 1 ea DAILY PRN MISC PER RX PROTOCOL 10/21/16 14:15 11/20/16 14:14 Amikacin Sulfate 1000 mg/Sodium Chloride 114 ml @ 228 mls/hr Q48H IV 10/23/16 16:00 10/28/16 15:59 Chlorhexidine Gluconate (Ada-Hex 2%) 1 applic DAILY TOPIC 10/22/16 09:00 11/21/16 08:59 10/23/16 09:00 Ertapenem 1 gm/ Sodium Chloride 55 ml @ 110 mls/hr Q24H IV 10/21/16 15:00 10/26/16 14:59 10/22/16 15:01 Lansoprazole (Prevacid) 30 mg Q12HR GT 10/22/16 22:00 11/21/16 21:59 10/23/16 09:00 Lorazepam (Ativan 2mg/ml 1ml) 2 mg Q2H PRN IV For Anxiety 10/21/16 13:45 10/28/16 13:44 Morphine Sulfate (Morphine Sulfate) 4 mg Q4H PRN IVP Severe Pain (Pain Scale 7-10) 10/21/16 13:45 10/28/16 13:44 Norepinephrine Bitartrate 8 mg/ Dextrose 508 ml @ 0 mls/hr Q24H IV 10/21/16 20:35 11/20/16 20:34 10/23/16 01:24 Ondansetron HCl (Zofran) 4 mg Q6H PRN IVP Nausea & Vomiting 10/21/16 13:45 11/20/16 13:44 Polyethylene Glycol (Miralax) 17 gm DAILYPRN PRN ORAL Constipation 10/21/16 13:45 11/20/16 13:44 Sodium Chloride 1,000 ml @ 100 mls/hr Q10H IVLG 10/21/16 14:00 11/20/16 13:59 10/23/16 07:06 Vancomycin HCl (Vanco rx to dose) 1 ea DAILY PRN MISC PER RX PROTOCOL 10/21/16 14:00 11/20/16 13:59 Vancomycin HCl/ Dextrose 250 ml @ 166.667 mls/hr Q24H IVPB 10/23/16 17:00 10/28/16 16:59 Jesse Campbell M.D. Oct 23, 2016 13:39
--- NOTE | 2016-10-23 15:07 | Pulmonolgy Critical Care Note ---
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 pulmonary HTN Anemia Thrombocytopenia VIANCA 2 to dehydration (prerenal) PLAN OF CARE ICU care Hemodynamic support with pressor, continue Levophed to keep SBP above 90 Vent support Pulmonary toilet Trach care Daily ABG and CXR last ABG stable on current settings, keep as is and titrate as needed Abx ID follows sputum cx + GNB, initial blood cx negative, repeated blood cx 03/03 + GPC in clusters, likely contaminant ECHO with EF 30-35% and RVSP of 45 c/w mild pulmonary HTNm, as well as evidence of moderate MR Ammonia -WNL Abdominal US with suggestion of underlying cirrhosis, no evidence of acute biliary disease , + evidence of medical renal disease hepatitis panel negative worsening transaminitis, on pressors, likely shocked liver due to severe sepsis trend LFT strict aspiration precautions, GT feeding, monitor tolerance monitor renal parameters, lytes, avoid nephrotoxic , likely chronic monitor counts, transfuse prn of Heparin due to PLT trending down HH trending down, anemia workup, transfuse prn SCD GI prophylaxis elevated TSH, check free T4 case discussed and evaluated by supervising physician Critical Care - Objective Last 24 Hour Vital Signs Date Time Temp Pulse Resp B/P (MAP) Pulse Ox O2 Delivery O2 Flow Rate FiO2 10/23/16 13:15 78 16 94/51 99 Mechanical Ventilator 50 10/23/16 13:00 92/72 10/23/16 13:00 90 22 92/72 100 Mechanical Ventilator 50 10/23/16 12:45 83 17 97/56 99 Mechanical Ventilator 50 10/23/16 12:30 91 26 103/65 100 Mechanical Ventilator 50 10/23/16 12:15 88 22 88/57 100 Mechanical Ventilator 50 10/23/16 12:00 50 10/23/16 12:00 98.6 83 19 118/61 98 Mechanical Ventilator 50 10/23/16 12:00 118/61 10/23/16 12:00 79 10/23/16 11:45 87 14 100/57 99 Mechanical Ventilator 50 10/23/16 11:30 81 24 98/57 95 Mechanical Ventilator 50 10/23/16 11:15 82 18 107/61 96 Mechanical Ventilator 50 10/23/16 11:10 80 16 50 10/23/16 11:00 118/61 10/23/16 11:00 87 17 101/56 97 Mechanical Ventilator 50 10/23/16 10:45 75 21 101/51 99 Mechanical Ventilator 50 10/23/16 10:30 77 17 93/59 99 Mechanical Ventilator 50 10/23/16 10:15 79 21 105/64 99 Mechanical Ventilator 50 10/23/16 10:00 90 21 105/64 99 Mechanical Ventilator 50 10/23/16 10:00 102/57 10/23/16 09:45 75 16 95/48 99 Mechanical Ventilator 50 10/23/16 09:30 81 16 97/58 99 Mechanical Ventilator 50 10/23/16 09:30 86 18 50 10/23/16 09:15 78 16 98/49 99 Mechanical Ventilator 50 10/23/16 09:00 95/48 10/23/16 09:00 75 16 95/48 99 Mechanical Ventilator 50 10/23/16 08:45 81 16 111/61 99 Mechanical Ventilator 50 10/23/16 08:30 85 17 88/71 99 Mechanical Ventilator 50 10/23/16 08:15 84 17 111/58 99 Mechanical Ventilator 50 10/23/16 08:00 90 10/23/16 08:00 50 10/23/16 08:00 108/57 10/23/16 08:00 98.3 77 17 108/57 99 Mechanical Ventilator 50 10/23/16 07:45 86 16 98/55 98 Mechanical Ventilator 50 10/23/16 07:30 77 16 112/57 99 Mechanical Ventilator 50 10/23/16 07:20 80 16 50 10/23/16 07:15 73 16 100/62 100 Mechanical Ventilator 50 10/23/16 07:00 73 16 99/52 100 Mechanical Ventilator 50 10/23/16 06:45 75 16 87/47 100 Mechanical Ventilator 50 10/23/16 06:30 82 16 88/47 100 Mechanical Ventilator 50 10/23/16 06:15 78 16 93/46 100 Mechanical Ventilator 50 10/23/16 06:00 76 16 95/50 100 Mechanical Ventilator 50 10/23/16 05:45 76 16 95/50 100 Mechanical Ventilator 50 10/23/16 05:30 76 16 100/53 99 Mechanical Ventilator 50 10/23/16 05:24 78 17 50 10/23/16 05:15 87 21 113/55 99 Mechanical Ventilator 50 10/23/16 05:00 87 19 93/54 99 Mechanical Ventilator 50 10/23/16 04:45 84 18 93/54 99 Mechanical Ventilator 50 10/23/16 04:30 75 16 100/56 99 Mechanical Ventilator 50 10/23/16 04:15 76 16 94/55 98 Mechanical Ventilator 50 10/23/16 04:00 98.0 79 16 96/52 97 Mechanical Ventilator 50 10/23/16 04:00 79 10/23/16 04:00 50 10/23/16 03:45 76 16 96/52 98 Mechanical Ventilator 50 10/23/16 03:30 75 16 93/54 98 Mechanical Ventilator 50 10/23/16 03:16 79 16 50 10/23/16 03:15 77 16 120/63 98 Mechanical Ventilator 50 10/23/16 03:00 76 16 98/55 98 Mechanical Ventilator 50 10/23/16 02:45 75 16 106/52 98 Mechanical Ventilator 50 10/23/16 02:30 80 17 102/59 98 Mechanical Ventilator 50 10/23/16 02:15 79 16 107/60 98 Mechanical Ventilator 50 10/23/16 02:00 79 16 107/60 98 Mechanical Ventilator 50 10/23/16 01:45 80 21 101/64 97 Mechanical Ventilator 50 10/23/16 01:30 93 21 101/64 99 Mechanical Ventilator 50 10/23/16 01:25 85 16 50 10/23/16 01:24 92/50 10/23/16 01:15 82 18 92/50 98 Mechanical Ventilator 50 10/23/16 01:00 80 16 126/95 100 Mechanical Ventilator 50 10/23/16 00:45 80 16 106/54 99 Mechanical Ventilator 50 10/23/16 00:30 78 16 102/57 98 Mechanical Ventilator 50 10/23/16 00:15 78 16 96/61 98 Mechanical Ventilator 50 10/23/16 00:00 78 10/23/16 00:00 50 10/23/16 00:00 98.0 78 16 103/55 98 Mechanical Ventilator 50 10/22/16 23:45 79 16 115/62 99 Mechanical Ventilator 50 10/22/16 23:30 79 17 114/61 98 Mechanical Ventilator 50 8/25/17 23:15 83 18 109/81 98 Mechanical Ventilator 50 17 23:14 82 16 50 17 23:00 81 16 113/59 99 Mechanical Ventilator 50 17 22:45 80 16 107/65 99 Mechanical Ventilator 50 17 22:30 79 16 99/73 99 Mechanical Ventilator 50 17 22:15 79 16 107/58 99 Mechanical Ventilator 50 17 22:00 81 16 102/59 98 Mechanical Ventilator 50 17 21:45 83 16 104/56 97 Mechanical Ventilator 50 17 21:30 80 16 105/58 98 Mechanical Ventilator 50 17 21:15 83 16 105/58 98 Mechanical Ventilator 50 17 21:15 73 17 50 17 21:00 83 16 105/58 98 Mechanical Ventilator 50 17 20:45 84 17 105/58 98 Mechanical Ventilator 50 10/22/16 20:30 85 18 108/65 98 Mechanical Ventilator 50 17 20:15 83 16 104/59 98 Mechanical Ventilator 50 10/22/16 20:00 50 10/22/16 20:00 98.1 81 16 117/68 97 Mechanical Ventilator 50 17 20:00 80 10/22/16 19:45 81 16 110/62 97 Mechanical Ventilator 50 10/22/16 19:30 83 18 105/58 98 Mechanical Ventilator 50 17 19:15 82 17 109/58 97 Mechanical Ventilator 50 17 19:12 84 18 50 10/22/16 19:00 86 18 110/59 98 Mechanical Ventilator 50 17 18:45 81 17 108/63 99 Mechanical Ventilator 50 17 18:45 108/63 17 18:30 83 17 106/62 98 Mechanical Ventilator 50 17 18:15 84 17 105/57 97 Mechanical Ventilator 50 17 18:00 86 17 100/52 97 Mechanical Ventilator 50 17 17:45 92 21 99/53 96 Mechanical Ventilator 50 17 17:30 93 20 112/49 96 Mechanical Ventilator 50 17 17:15 91 20 109/60 97 Mechanical Ventilator 50 17 17:14 88 20 50 8/25/17 17:00 93 22 110/62 98 Mechanical Ventilator 50 10/22/16 17:00 110/62 10/22/16 16:45 93 18 113/60 97 Mechanical Ventilator 50 10/22/16 16:30 106/60 10/22/16 16:30 90 17 108/58 97 Mechanical Ventilator 50 10/22/16 16:15 90 19 106/60 97 Mechanical Ventilator 50 10/22/16 16:00 98.5 91 19 111/60 97 Mechanical Ventilator 50 10/22/16 16:00 50 10/22/16 16:00 90 10/22/16 15:45 93 19 111/60 97 Mechanical Ventilator 50 10/22/16 15:30 92 19 113/63 97 Mechanical Ventilator 50 10/22/16 15:30 113/63 10/22/16 15:20 96 21 50 10/22/16 15:15 94 19 114/60 98 Mechanical Ventilator 50 Status: sedated Condition: critical HEENT: atraumatic, normocephalic Neck: trach - Portex #7, secretions moderate, yellow, thin , other - RIJ CL triple lumen, intact Lungs: rhonchi Heart: HR/BP unstable Abdomen: soft, non-tender, feeding tube - G tube , other - G tube Extremities: no C/C/E, other - moves LE Micro: Microbiology Date/Time Source Procedure Growth Status 10/21/16 17:10 Blood Blood Culture - Preliminary Resulted 10/21/16 17:10 Blood Blood Culture - Preliminary NO GROWTH AFTER 24 HOURS Resulted 10/21/16 10:55 Blood Blood Culture - Preliminary NO GROWTH AFTER 24 HOURS Resulted 10/21/16 10:40 Blood Blood Culture - Preliminary NO GROWTH AFTER 24 HOURS Resulted 10/22/16 04:00 Sputum Gram Stain - Final Resulted 10/22/16 04:00 Sputum Culture - Preliminary Gram Negative Bacillus 1 Resulted 10/21/16 12:11 Nasal Nares MRSA Culture - Final NO METHICILLIN RESISTANT STAPH AUREUS... Complete 10/21/16 12:11 Rectum VRE Culture - Final Enterococcus Faecalis - Vre Complete Critical Care - Subjective ROS Limited/Unobtainable: Yes Interval Events: leukocytosis today, afebrile no signs of respiratory distress on current settings PLT and HH trending down LFT with abrupt trend up Condition: critical IV Access: central - RIJ EKG Rhythm: Sinus Rhythm FI02: 50 Vent Support Breath Rate: 16 Vent Support Mode: AC Vent Tidal Volume: 600 Sputum Amount: Moderate PEEP: 5.0 PIP: 38 Fluids: NS at 100 Drips: levophed at 6 mcg/min I&O: Intake and Output 10/23/16 10/24/16 19:00 07:00 Intake Total 839.54 ml Output Total 625 ml Balance 214.54 ml Intake Oral 0 ml Free Water 50 ml IV Total 729.54 ml Other 60 ml Output Urine Total 625 ml CXR: 10/23 Patchy airspace disease again demonstrated bilaterally. Tubes and lines are stable. Michael (Mavisindia)Sumaya NP Oct 23, 2016 15:07
[2016-10-23] MEDS: Ertapenem 1 GM in NS 55 ML IV SCH (15:41)
[2016-10-23] MEDS: Amikacin 1,000 MG in NS 110 ML IV SCH (16:15)
[2016-10-23] MEDS: Vancomycin 1250mg/D5W 250ml IVPB SCH (17:13)
[2016-10-24] VITALS (92 sets, daily range): BP systolic 51–127; BP diastolic 36–93
[2016-10-24 05:13] LABS: MEAN CORPUSCULAR HEMOGLOBIN 30.1 PG (27.0-31.0); MEAN CORPUSCULAR HGB CONC 32.3 G/DL (32.0-36.0); MEAN CORPUSCULAR VOLUME 93 FL (80-99); MEAN PLATELET VOLUME 8.3 FL (6.5-10.1); PLATELET COUNT 45 K/UL (150-450); RED BLOOD COUNT 2.29 M/UL (4.70-6.10); RED CELL DISTRIBUTION WIDTH 19.7 % (11.6-14.8)
[2016-10-24 05:35] LABS: HEMOLYSIS 2; IRON 30 ug/dL (59-158); TOTAL IRON BINDING CAPACITY 143 ug/dL (250-400)
[2016-10-24 05:38] LABS: ALANINE AMINOTRANSFERASE 342 U/L (3-41); ALBUMIN/GLOBULIN RATIO 0.3 (1.0-2.7); ANION GAP 10 (5-15); ASPARTATE AMINO TRANSFERASE 753 U/L (5-40); CALCIUM 8.7 mg/dL (8.6-10.2); CARBON DIOXIDE 27 mEQ/L (20-30); CHLORIDE 109 mEQ/L (98-107); HEMOLYSIS 3; POTASSIUM 4.2 mEQ/L (3.4-4.9); SODIUM 146 mEQ/L (135-145); TOTAL PROTEIN 6.2 g/dL (6.6-8.7)
[2016-10-24 06:13] LABS: FERRITIN > 2000 ng/mL (10-230)
--- NOTE | 2016-10-24 08:20 | Pulmonolgy Critical Care Note ---
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 pulmonary HTN Anemia of chronci disease, requiring blood transfusion Thrombocytopenia VIANCA 2 to dehydration (prerenal) PLAN OF CARE ICU care Hemodynamic support with pressor, continue Levophed to keep SBP above 90 wean as tolerated Vent support Pulmonary toilet Trach care Daily ABG and CXR last ABG stable on current settings, keep as is and titrate as needed Abx ID follows sputum cx + GNB, initial blood cx negative, repeated blood cx / + GPC in clusters, likely contaminant ECHO with EF 30-35% and RVSP of 45 c/w mild pulmonary HTNm, as well as evidence of moderate MR Ammonia -WNL Abdominal US with suggestion of underlying cirrhosis, no evidence of acute biliary disease , + evidence of medical renal disease hepatitis panel negative worsening transaminitis, on pressors, likely shocked liver due to severe sepsis trend LFT, worsening strict aspiration precautions, GT feeding, monitor tolerance monitor renal parameters, lytes, avoid nephrotoxic , likely chronic monitor counts, transfuse today anemia w/up with low iron and high ferritin, low TIBG, c/w anemia of chronic disease check stool OB and CEA off Heparin due to PLT trending down SCD GI prophylaxis elevated TSH, and low free T4 , start low dose of levothyroxine case discussed and evaluated by supervising physician Critical Care - Objective Last 24 Hour Vital Signs Date Time Temp Pulse Resp B/P (MAP) Pulse Ox O2 Delivery O2 Flow Rate FiO2 10/24/16 07:59 92 10/24/16 06:56 106 22 50 10/24/16 06:45 96 16 91/54 99 Mechanical Ventilator 50 10/24/16 06:30 96 16 101/64 99 Mechanical Ventilator 50 10/24/16 06:15 95 16 100/61 99 Mechanical Ventilator 50 10/24/16 06:00 94 16 110/60 99 Mechanical Ventilator 50 10/24/16 05:45 92 16 99/62 99 Mechanical Ventilator 50 10/24/16 05:30 88 16 91/58 99 Mechanical Ventilator 50 10/24/16 05:15 90 16 98/61 99 Mechanical Ventilator 50 10/24/16 05:13 94 16 50 10/24/16 05:00 92 16 98/61 99 Mechanical Ventilator 50 10/24/16 04:45 94 16 102/58 99 Mechanical Ventilator 50 10/24/16 04:30 100 17 94/58 100 Mechanical Ventilator 50 10/24/16 04:15 90 16 108/66 98 Mechanical Ventilator 50 10/24/16 04:00 90 10/24/16 04:00 50 10/24/16 04:00 97.8 90 16 95/61 98 Mechanical Ventilator 50 10/24/16 03:45 92 16 103/55 98 Mechanical Ventilator 50 10/24/16 03:30 91 16 92/61 98 Mechanical Ventilator 50 10/24/16 03:15 88 16 104/64 98 Mechanical Ventilator 50 10/24/16 03:06 91 16 50 10/24/16 03:00 89 16 97/57 100 Mechanical Ventilator 50 10/24/16 02:45 89 16 96/52 99 Mechanical Ventilator 50 10/24/16 02:30 89 16 99/58 99 Mechanical Ventilator 50 10/24/16 02:15 90 16 91/54 99 Mechanical Ventilator 50 10/24/16 02:00 91 16 96/57 99 Mechanical Ventilator 50 10/24/16 01:45 89 16 97/57 99 Mechanical Ventilator 50 10/24/16 01:30 87 16 95/61 99 Mechanical Ventilator 50 10/24/16 01:15 89 16 94/60 99 Mechanical Ventilator 50 10/24/16 01:02 88 16 50 10/24/16 01:00 88 16 91/55 96 Mechanical Ventilator 50 10/24/16 00:45 86 16 91/55 99 Mechanical Ventilator 50 10/24/16 00:30 86 16 94/60 99 Mechanical Ventilator 50 10/24/16 00:15 85 16 90/49 99 Mechanical Ventilator 50 10/24/16 00:00 50 10/24/16 00:00 98.0 86 16 92/59 99 Mechanical Ventilator 50 10/24/16 00:00 86 10/23/16 23:45 83 16 92/56 100 Mechanical Ventilator 50 10/23/16 23:30 81 16 90/50 100 Mechanical Ventilator 50 10/23/16 23:15 81 16 90/50 100 Mechanical Ventilator 50 10/23/16 23:02 72 16 50 10/23/16 23:00 80 16 85/54 100 Mechanical Ventilator 50 10/23/16 22:45 81 16 90/57 100 Mechanical Ventilator 50 10/23/16 22:30 80 16 89/56 99 Mechanical Ventilator 50 10/23/16 22:15 81 16 90/54 97 Mechanical Ventilator 50 10/23/16 22:00 82 16 82/47 96 Mechanical Ventilator 50 10/23/16 21:45 84 16 82/45 95 Mechanical Ventilator 50 10/23/16 21:30 84 16 80/49 97 Mechanical Ventilator 50 10/23/16 21:15 93 16 101/60 97 Mechanical Ventilator 50 10/23/16 21:04 100 18 50 10/23/16 21:00 98 17 94/50 97 Mechanical Ventilator 50 10/23/16 20:45 102 18 109/59 97 Mechanical Ventilator 50 10/23/16 20:30 97 17 118/59 99 Mechanical Ventilator 50 10/23/16 20:15 102 18 117/66 98 Mechanical Ventilator 50 10/23/16 20:00 98 10/23/16 20:00 97.9 97 16 109/60 96 Mechanical Ventilator 50 10/23/16 20:00 50 10/23/16 19:45 101 19 105/63 98 Mechanical Ventilator 50 10/23/16 19:30 101 22 105/77 98 Mechanical Ventilator 50 10/23/16 19:15 102 22 117/80 98 Mechanical Ventilator 50 10/23/16 19:04 99 16 50 10/23/16 19:00 101 21 120/85 99 Mechanical Ventilator 50 10/23/16 18:45 87 29 93/37 100 Mechanical Ventilator 50 10/23/16 18:30 94 17 96/33 100 Mechanical Ventilator 50 10/23/16 18:15 92 19 101/59 98 Mechanical Ventilator 50 10/23/16 18:00 91 18 105/53 99 Mechanical Ventilator 50 10/23/16 17:45 91 17 98/59 99 Mechanical Ventilator 50 10/23/16 17:30 91 19 102/57 97 Mechanical Ventilator 50 10/23/16 17:20 87 16 50 10/23/16 17:15 92 17 99/57 98 Mechanical Ventilator 50 10/23/16 17:00 91 21 101/53 98 Mechanical Ventilator 50 10/23/16 16:45 88 16 109/57 97 Mechanical Ventilator 50 10/23/16 16:45 109/57 10/23/16 16:30 93 19 102/67 100 Mechanical Ventilator 50 10/23/16 16:15 95 22 97/80 99 Mechanical Ventilator 50 10/23/16 16:00 50 10/23/16 16:00 88 10/23/16 16:00 97/70 10/23/16 16:00 98.9 88 18 97/70 99 Mechanical Ventilator 50 10/23/16 15:45 88 18 100/51 99 Mechanical Ventilator 50 10/23/16 15:30 90 19 99/52 99 Mechanical Ventilator 50 10/23/16 15:20 92 22 50 10/23/16 15:15 87 19 114/59 100 Mechanical Ventilator 50 10/23/16 15:15 114/54 10/23/16 15:00 87 22 97/57 97 Mechanical Ventilator 50 10/23/16 15:00 97/57 10/23/16 14:45 89 18 107/60 96 Mechanical Ventilator 50 10/23/16 14:30 90 20 97/53 98 Mechanical Ventilator 50 10/23/16 14:15 85 20 108/65 99 Mechanical Ventilator 50 10/23/16 14:00 95/53 10/23/16 14:00 86 20 95/53 99 Mechanical Ventilator 50 10/23/16 13:45 78 16 94/51 99 Mechanical Ventilator 50 10/23/16 13:30 86 20 101/55 98 Mechanical Ventilator 50 10/23/16 13:20 88 21 50 10/23/16 13:15 78 16 94/51 99 Mechanical Ventilator 50 10/23/16 13:00 92/72 10/23/16 13:00 90 22 92/72 100 Mechanical Ventilator 50 10/23/16 12:45 83 17 97/56 99 Mechanical Ventilator 50 10/23/16 12:30 91 26 103/65 100 Mechanical Ventilator 50 10/23/16 12:15 88 22 88/57 100 Mechanical Ventilator 50 10/23/16 12:00 50 10/23/16 12:00 98.6 83 19 118/61 98 Mechanical Ventilator 50 10/23/16 12:00 118/61 10/23/16 12:00 79 10/23/16 11:45 87 14 100/57 99 Mechanical Ventilator 50 10/23/16 11:30 81 24 98/57 95 Mechanical Ventilator 50 10/23/16 11:15 82 18 107/61 96 Mechanical Ventilator 50 10/23/16 11:10 80 16 50 10/23/16 11:00 118/61 10/23/16 11:00 87 17 101/56 97 Mechanical Ventilator 50 10/23/16 10:45 75 21 101/51 99 Mechanical Ventilator 50 10/23/16 10:30 77 17 93/59 99 Mechanical Ventilator 50 10/23/16 10:15 79 21 105/64 99 Mechanical Ventilator 50 10/23/16 10:00 90 21 105/64 99 Mechanical Ventilator 50 10/23/16 10:00 102/57 10/23/16 09:45 75 16 95/48 99 Mechanical Ventilator 50 10/23/16 09:30 81 16 97/58 99 Mechanical Ventilator 50 10/23/16 09:30 86 18 50 10/23/16 09:15 78 16 98/49 99 Mechanical Ventilator 50 10/23/16 09:00 95/48 10/23/16 09:00 75 16 95/48 99 Mechanical Ventilator 50 10/23/16 08:45 81 16 111/61 99 Mechanical Ventilator 50 10/23/16 08:30 85 17 88/71 99 Mechanical Ventilator 50 10/23/16 08:15 84 17 111/58 99 Mechanical Ventilator 50 Objective: Status: sedated, chronically vent dependent Condition: critical HEENT: atraumatic, normocephalic Neck: trach - Portex #7, secretions moderate, yellow, thin , RIJ CL triple lumen, intact Lungs: rhonchi bilaterally Heart: HR/BP unstable Abdomen: soft, non-tender, G tube , Extremities: no C/C/E, Micro: Microbiology Date/Time Source Procedure Growth Status 10/21/16 17:10 Blood Blood Culture - Preliminary Staphylococcus Sp Coag Neg Resulted 10/21/16 17:10 Blood Blood Culture - Preliminary NO GROWTH AFTER 48 HOURS Resulted 10/21/16 10:55 Blood Blood Culture - Preliminary NO GROWTH AFTER 48 HOURS Resulted 10/21/16 10:40 Blood Blood Culture - Preliminary NO GROWTH AFTER 48 HOURS Resulted 10/22/16 04:00 Sputum Gram Stain - Final Resulted 10/22/16 04:00 Sputum Culture - Preliminary Pseudomonas Aeruginosa Gram Negative Bacillus 2 Resulted 10/21/16 12:11 Nasal Nares MRSA Culture - Final NO METHICILLIN RESISTANT STAPH AUREUS... Complete 10/21/16 12:11 Rectum VRE Culture - Final Enterococcus Faecalis - Vre Complete Critical Care - Subjective ROS Limited/Unobtainable: Yes Interval Events: leukocytosis resolved afebrile no signs of respiratory distress on current settings still on Levophed , but down to 1 mcg/min anemic with HH 6.9/21.3 Condition: critical IV Access: central - RIJ CL TL EKG Rhythm: Sinus Rhythm FI02: 50 Vent Support Breath Rate: 16 Vent Support Mode: AC Vent Tidal Volume: 600 Sputum Amount: Moderate PEEP: 5.0 PIP: 40 Fluids: NS at 100 Drips: Levophed at 1 mcg/min CXR: 10/23 Patchy airspace disease again demonstrated bilaterally. Tubes and lines are stable. Michael (Sumaya Fischer NP Oct 24, 2016 08:20
[2016-10-24 08:47] LABS: BAND NEUTROPHILS % (MANUAL) 5 % (0-8); EOSINOPHILS % (MANUAL) 1 % (0-3); LYMPHOCYTES % (MANUAL) 21 % (20-45); NEUTROPHILS % (MANUAL) 70 % (45-75); TOTAL CELLS COUNTED 100
[2016-10-24 08:48] LABS: ANISOCYTOSIS 1+; BASOPHILS % (MANUAL) 0 % (0-2); MICROCYTES 1+; PLATELET ESTIMATE DECREASED; PLATELET MORPHOLOGY NORMAL
[2016-10-24] MEDS: Dyna-Hex 2% Top Sol 8oz TOPIC SCH (08:56)
[2016-10-24 10:29] LABS: ABG ALLEN TEST POSITIVE; ABG BASE EXCESS 1.4; ABG PCO2 50.5 mmHg (35.0-45.0)
--- NOTE | 2016-10-24 11:21 | Diagnostic Imaging Report ---
Indication: Dyspnea Comparison: 10/23/16 A single view chest radiograph was obtained. Findings: Patchy bilateral consolidation noted. The heart is enlarged. Tracheostomy and right jugular line noted. Impression: No change from the prior day
[2016-10-24] MEDS: Ertapenem 1 GM in NS 55 ML IV SCH (15:20)
[2016-10-24] MEDS: Vancomycin 1250mg/D5W 250ml IVPB SCH (17:05)
[2016-10-24] MEDS ORDERED: Diltiazem 25mg/5ml IV ONE (19:18)
[2016-10-24] MEDS: Diltiazem 25mg/5ml IV PRN ×2 (19:24→20:24)
[2016-10-25] VITALS (54 sets, daily range): BP systolic 71–119; BP diastolic 43–78
[2016-10-25 05:57] LABS: MEAN CORPUSCULAR HGB CONC 32.8 G/DL (32.0-36.0); MEAN CORPUSCULAR VOLUME 95 FL (80-99); MEAN PLATELET VOLUME 10.6 FL (6.5-10.1); PLATELET COUNT 66 K/UL (150-450); RED BLOOD COUNT 2.55 M/UL (4.70-6.10); RED CELL DISTRIBUTION WIDTH 18.3 % (11.6-14.8); WHITE BLOOD COUNT 13.2 K/UL (4.8-10.8)
[2016-10-25 06:22] LABS: ANION GAP 13 (5-15); CALCIUM 8.6 mg/dL (8.6-10.2); CARBON DIOXIDE 24 mEQ/L (20-30); CHLORIDE 113 mEQ/L (98-107); CREATININE 1.4 mg/dL (0.7-1.2); HEMOLYSIS 2; POTASSIUM 4.2 mEQ/L (3.4-4.9); SODIUM 150 mEQ/L (135-145)
[2016-10-25] MEDS ORDERED: Levothyroxine 25mcg tab ORAL SCH (06:30)
[2016-10-25 10:09] LABS: ANISOCYTOSIS 1+; BAND NEUTROPHILS % (MANUAL) 10 % (0-8); BASOPHILS % (MANUAL) 0 % (0-2); EOSINOPHILS % (MANUAL) 0 % (0-3); HYPOCHROMASIA 1+; LYMPHOCYTES % (MANUAL) 14 % (20-45); NEUTROPHILS % (MANUAL) 67 % (45-75); PLATELET ESTIMATE DECREASED; PLATELET MORPHOLOGY NORMAL; TOTAL CELLS COUNTED 100
--- NOTE | 2016-10-25 10:35 | Pulmonolgy Critical Care Note ---
Critical Care - Asmt/Plan Problems: (1) Acute and chronic respiratory failure (2) Septic shock (3) Feeding by G-tube (4) Hypoxemic encephalopathy (5) Severe anemia (6) SVT (supraventricular tachycardia) Respiratory: monitor respiratory rate, adjust FIO2, CXR Cardiac: continue to monitor HR/BP Renal: F/U I&O, keep IV fluid Infectious Disease: check cultures, continue antibiotics Gastrointestinal: continue feedings/current rate Endocrine: monitor blood sugar, check HgA1C Hematologic: monitor H/H Neurologic: PRN Morphine Prophylaxis: Protonix, Heparin Notes Reviewed: cardio, renal Discussed with: nurses, consultants, case monitorjunior assistant manager - Objective Last 24 Hour Vital Signs Date Time Temp Pulse Resp B/P (MAP) Pulse Ox O2 Delivery O2 Flow Rate FiO2 10/25/16 09:30 83 16 119/76 99 Mechanical Ventilator 50 10/25/16 09:00 81 16 111/68 99 Mechanical Ventilator 50 10/25/16 08:33 80 16 50 10/25/16 08:30 83 16 108/78 99 Mechanical Ventilator 50 10/25/16 08:00 78 10/25/16 08:00 50 10/25/16 08:00 98.7 74 16 106/77 99 Mechanical Ventilator 50 10/25/16 07:30 75 16 99/68 99 Mechanical Ventilator 50 10/25/16 07:02 80 17 50 10/25/16 07:00 80 16 97/63 99 Mechanical Ventilator 50 10/25/16 07:00 97/63 10/25/16 06:45 82 16 86/70 99 Mechanical Ventilator 50 10/25/16 06:30 81 16 101/57 99 Mechanical Ventilator 50 10/25/16 06:15 82 16 89/43 99 Mechanical Ventilator 50 10/25/16 06:00 76 16 96/60 99 Mechanical Ventilator 50 10/25/16 06:00 97/46 10/25/16 05:45 77 16 96/60 99 Mechanical Ventilator 50 10/25/16 05:30 78 16 91/63 99 Mechanical Ventilator 50 10/25/16 05:15 78 16 96/66 99 Mechanical Ventilator 50 10/25/16 05:00 77 16 90/72 99 Mechanical Ventilator 50 10/25/16 05:00 71/44 10/25/16 04:55 76 16 50 10/25/16 04:45 77 16 90/72 99 Mechanical Ventilator 50 10/25/16 04:30 78 16 71/44 100 Mechanical Ventilator 50 10/25/16 04:15 73 16 96/65 100 Mechanical Ventilator 50 10/25/16 04:00 96/65 10/25/16 04:00 98.4 73 16 95/64 100 Mechanical Ventilator 50 10/25/16 04:00 50 10/25/16 04:00 73 10/25/16 03:45 74 16 99/62 100 Mechanical Ventilator 50 10/25/16 03:30 74 16 95/64 100 Mechanical Ventilator 50 10/25/16 03:15 77 16 97/63 100 Mechanical Ventilator 50 10/25/16 03:13 77 15 50 10/25/16 03:00 97/63 10/25/16 03:00 76 16 99/66 100 Mechanical Ventilator 50 10/25/16 02:45 76 16 92/72 100 Mechanical Ventilator 50 10/25/16 02:30 77 16 96/63 100 Mechanical Ventilator 50 10/25/16 02:15 77 16 97/63 100 Mechanical Ventilator 50 10/25/16 02:00 78 16 94/56 100 Mechanical Ventilator 50 10/25/16 02:00 94/57 10/25/16 01:45 75 16 96/63 100 Mechanical Ventilator 50 10/25/16 01:30 76 16 92/63 100 Mechanical Ventilator 50 10/25/16 01:27 75 16 50 10/25/16 01:15 75 16 92/62 100 Mechanical Ventilator 50 10/25/16 01:00 75 16 94/60 100 Mechanical Ventilator 50 10/25/16 01:00 94/60 10/25/16 00:45 77 16 91/67 99 Mechanical Ventilator 50 10/25/16 00:30 80 16 93/58 100 Mechanical Ventilator 50 10/25/16 00:15 73 16 91/58 99 Mechanical Ventilator 50 10/25/16 00:00 74 10/25/16 00:00 50 10/25/16 00:00 91/58 10/25/16 00:00 98.7 74 16 90/57 99 Mechanical Ventilator 50 10/24/16 23:45 74 16 90/56 99 Mechanical Ventilator 50 10/24/16 23:30 74 16 100/62 99 Mechanical Ventilator 50 10/24/16 23:29 74 16 50 10/24/16 23:15 73 16 90/57 97 Mechanical Ventilator 50 10/24/16 23:00 76 16 76/58 97 Mechanical Ventilator 50 10/24/16 23:00 96/48 10/24/16 22:45 73 16 91/58 98 Mechanical Ventilator 50 10/24/16 22:30 75 19 91/58 98 Mechanical Ventilator 50 10/24/16 22:15 75 19 91/60 98 Mechanical Ventilator 50 10/24/16 22:00 75 19 91/60 98 Mechanical Ventilator 50 10/24/16 22:00 78/43 10/24/16 21:45 75 19 91/60 97 Mechanical Ventilator 50 10/24/16 21:30 74 19 86/53 97 Mechanical Ventilator 50 10/24/16 21:15 73 19 78/49 95 Mechanical Ventilator 50 10/24/16 21:14 79 16 50 10/24/16 21:02 72/48 10/24/16 21:00 73 19 72/46 94 Mechanical Ventilator 50 10/24/16 20:45 78 16 73/50 93 Mechanical Ventilator 50 10/24/16 20:38 77 10/24/16 20:30 166 19 87/52 93 Mechanical Ventilator 50 10/24/16 20:24 194 84/53 10/24/16 20:15 176 18 84/53 93 Mechanical Ventilator 50 10/24/16 20:00 97.9 177 22 69/53 93 Mechanical Ventilator 50 10/24/16 20:00 179 10/24/16 20:00 50 10/24/16 19:45 194 24 77/58 95 Mechanical Ventilator 50 10/24/16 19:30 210 26 56/42 97 Mechanical Ventilator 50 10/24/16 19:24 207 71/53 10/24/16 19:15 213 26 71/53 97 Mechanical Ventilator 50 10/24/16 19:07 194 22 50 10/24/16 19:00 211 19 97/76 100 Mechanical Ventilator 50 10/24/16 19:00 198 10/24/16 18:48 195 20 104/74 97 Mechanical Ventilator 50 10/24/16 18:45 201 23 64/52 97 Mechanical Ventilator 50 10/24/16 18:40 195 19 127/93 97 Mechanical Ventilator 50 10/24/16 18:34 189 22 62/38 97 Mechanical Ventilator 50 10/24/16 18:30 178 23 51/36 99 Mechanical Ventilator 50 10/24/16 18:00 78 16 84/48 98 Mechanical Ventilator 50 10/24/16 17:30 88 16 89/49 97 Mechanical Ventilator 50 10/24/16 17:02 94 20 50 10/24/16 17:00 89 16 88/53 100 Mechanical Ventilator 50 10/24/16 16:30 88 16 90/46 98 Mechanical Ventilator 50 10/24/16 16:00 97.3 95 16 96/55 100 Mechanical Ventilator 50 10/24/16 16:00 92 10/24/16 16:00 50 10/24/16 15:30 96 16 97/51 99 Mechanical Ventilator 50 10/24/16 15:13 97 19 50 10/24/16 15:00 98 16 109/57 99 Mechanical Ventilator 50 10/24/16 14:45 96 18 99/58 100 Mechanical Ventilator 50 10/24/16 14:30 112/55 10/24/16 14:30 92 19 112/55 99 Mechanical Ventilator 50 10/24/16 14:15 92 18 98/63 99 Mechanical Ventilator 50 10/24/16 14:00 92 16 86/50 98 Mechanical Ventilator 50 10/24/16 14:00 98/63 10/24/16 13:45 92 15 84/52 99 Mechanical Ventilator 50 10/24/16 13:30 92 13 91/52 98 Mechanical Ventilator 50 10/24/16 13:24 88 16 50 10/24/16 13:15 92 13 92/54 98 Mechanical Ventilator 50 10/24/16 13:00 92/54 10/24/16 13:00 92 16 91/54 98 Mechanical Ventilator 50 10/24/16 12:45 90 10/24/16 12:45 80 16 94/56 99 Mechanical Ventilator 50 10/24/16 12:30 82 16 100/63 99 Mechanical Ventilator 50 10/24/16 12:15 83 16 96/61 99 Mechanical Ventilator 50 10/24/16 12:00 99/58 10/24/16 12:00 98.9 84 16 98/59 99 Mechanical Ventilator 50 10/24/16 12:00 50 10/24/16 11:45 84 16 97/59 99 Mechanical Ventilator 50 10/24/16 11:30 86 16 107/58 99 Mechanical Ventilator 50 10/24/16 11:15 86 16 95/54 99 Mechanical Ventilator 50 10/24/16 11:00 85 16 93/55 99 Mechanical Ventilator 50 10/24/16 11:00 95/54 10/24/16 10:51 96 16 50 10/24/16 10:45 88 16 99/62 99 Mechanical Ventilator 50 Status: awake Condition: critical HEENT: atraumatic Lungs: clear Heart: HR/BP stable, HR/BP unstable Abdomen: soft, active bowel sounds Extremities: no C/C/E, edema Decubiti: location Micro: Microbiology Date/Time Source Procedure Growth Status 10/23/16 16:00 Blood Blood Culture - Preliminary NO GROWTH AFTER 24 HOURS Resulted 10/23/16 15:17 Blood Blood Culture - Preliminary NO GROWTH AFTER 24 HOURS Resulted Critical Care - Subjective ROS Limited/Unobtainable: Yes ICU Day: 4 EKG Rhythm: Sinus Rhythm FI02: 50 Vent Support Breath Rate: 16 Vent Support Mode: AC Vent Tidal Volume: 600 Sputum Amount: Moderate PEEP: 5.0 PIP: 43 Fluids: NS 100 cc.hour Drips: levophed 8 ug Tube Feeding Amount: 20 I&O: Intake and Output 10/25/16 10/26/16 19:00 07:00 Intake Total 190 ml Output Total 10 ml Balance 180 ml Free Water 150 ml Tube Feeding 40 ml Output Urine Total 10 ml CXR: bilateral infiltrate Labs: Laboratory Tests Test 10/25/16 05:00 White Blood Count 13.2 K/UL (4.8-10.8) H Red Blood Count 2.55 M/UL (4.70-6.10) L Hemoglobin 7.9 G/DL (14.2-18.0) L Hematocrit 24.1 % (42.0-52.0) L Mean Corpuscular Volume 95 FL (80-99) Mean Corpuscular Hemoglobin 31.0 PG (27.0-31.0) Mean Corpuscular Hemoglobin Concent 32.8 G/DL (32.0-36.0) Red Cell Distribution Width 18.3 % (11.6-14.8) H Platelet Count 66 K/UL (150-450) L Mean Platelet Volume 10.6 FL (6.5-10.1) H Neutrophils (%) (Auto) % (45.0-75.0) Lymphocytes (%) (Auto) % (20.0-45.0) Monocytes (%) (Auto) % (1.0-10.0) Eosinophils (%) (Auto) % (0.0-3.0) Basophils (%) (Auto) % (0.0-2.0) Differential Total Cells Counted 100 Neutrophils % (Manual) 67 % (45-75) Lymphocytes % (Manual) 14 % (20-45) L Monocytes % (Manual) 9 % (1-10) Eosinophils % (Manual) 0 % (0-3) Basophils % (Manual) 0 % (0-2) Band Neutrophils 10 % (0-8) H Platelet Estimate Decreased L Platelet Morphology Normal Hypochromasia 1+ Anisocytosis 1+ Sodium Level 150 mEQ/L (135-145) H Potassium Level 4.2 mEQ/L (3.4-4.9) Chloride Level 113 mEQ/L (98-107) H Carbon Dioxide Level 24 mEQ/L (20-30) Anion Gap 13 (5-15) Blood Urea Nitrogen 34 mg/dL (7-23) H Creatinine 1.4 mg/dL (0.7-1.2) H Estimat Glomerular Filtration Rate mL/min (>60) Glucose Level 126 mg/dL (74-106) H Calcium Level 8.6 mg/dL (8.6-10.2) Carcinoembryonic Antigen 5.0 ng/mL H RADHA SPANGLER Oct 25, 2016 10:35
[2016-10-25] MEDS ORDERED: Miralax 17gm pkt GT PRN (11:15)
--- NOTE | 2016-10-25 12:32 | Diagnostic Imaging Report ---
Indication: Dyspnea Comparison: 10/24/2016 A single view chest radiograph was obtained. Findings: Interstitial and alveolar lung disease demonstrated once again. Tracheostomy and right jugular line demonstrated once again. Cardiomegaly is stable. Impression: Slightly worsening pulmonary edema
[2016-10-25] MEDS: Ertapenem 1 GM in NS 55 ML IV SCH (15:00)
[2016-10-25] MEDS ORDERED: Tubing Blood Filter IV ONE (16:05)
[2016-10-25] MEDS ORDERED: Tubing IV Secondary IV ONE (16:05)
[2016-10-25] MEDS ORDERED: NS 275ml ONE (16:05)
[2016-10-25] MEDS: Amikacin 1,000 MG in NS 110 ML IV SCH (18:50)
[2016-10-25] MEDS: Meropenem 2 GM in NS 110 ML IVPB SCH (18:50)
--- NOTE | 2016-10-25 19:19 | Cardiology Progress Note ---
Assessment/Plan Assessment/Plan icm anoxic encephalopathy hypotesnion sepsis thrombocytopenia svt with abbarency hypernatremia phtn anemia chf acute on chronic abn lfts hypothyroidsm is off perssor bp borderline no cy oir bb at this time watch ivf dobutamine low dose in am if trop areneg [id number] Objective Last 24 Hour Vital Signs Date Time Temp Pulse Resp B/P (MAP) Pulse Ox O2 Delivery O2 Flow Rate FiO2 10/25/16 17:08 76 16 50 10/25/16 17:00 84 16 100/61 99 Mechanical Ventilator 50 10/25/16 16:00 86 10/25/16 16:00 50 10/25/16 16:00 84 16 89/55 99 Mechanical Ventilator 50 10/25/16 15:30 83 16 91/63 99 Mechanical Ventilator 50 10/25/16 15:02 81 16 50 10/25/16 15:00 84 16 90/56 99 Mechanical Ventilator 50 10/25/16 14:30 84 16 93/60 100 Mechanical Ventilator 50 10/25/16 14:00 91/60 10/25/16 14:00 99.0 84 16 102/62 100 Mechanical Ventilator 50 10/25/16 13:30 83 16 101/62 100 Mechanical Ventilator 50 10/25/16 13:00 78 16 50 10/25/16 13:00 103/64 10/25/16 13:00 88 16 106/65 100 Mechanical Ventilator 50 10/25/16 12:36 98.9 10/25/16 12:30 83 16 112/73 100 Mechanical Ventilator 50 10/25/16 12:00 97.9 85 16 103/66 100 Mechanical Ventilator 50 10/25/16 12:00 86 10/25/16 12:00 50 10/25/16 12:00 105/71 10/25/16 11:30 99.6 10/25/16 11:30 89 16 113/71 100 Mechanical Ventilator 50 10/25/16 11:03 75 16 50 10/25/16 11:00 110/73 10/25/16 11:00 82 16 107/62 100 Mechanical Ventilator 50 10/25/16 10:30 85 16 108/75 100 Mechanical Ventilator 50 10/25/16 10:00 84 16 108/71 99 Mechanical Ventilator 50 10/25/16 10:00 114/76 10/25/16 09:30 83 16 119/76 99 Mechanical Ventilator 50 10/25/16 09:00 111/73 10/25/16 09:00 81 16 111/68 99 Mechanical Ventilator 50 10/25/16 08:33 80 16 50 10/25/16 08:30 83 16 108/78 99 Mechanical Ventilator 50 10/25/16 08:00 78 10/25/16 08:00 50 10/25/16 08:00 111/67 10/25/16 08:00 98.7 74 16 106/77 99 Mechanical Ventilator 50 10/25/16 07:30 75 16 99/68 99 Mechanical Ventilator 50 10/25/16 07:02 80 17 50 10/25/16 07:00 80 16 97/63 99 Mechanical Ventilator 50 10/25/16 07:00 97/63 10/25/16 06:45 82 16 86/70 99 Mechanical Ventilator 50 10/25/16 06:30 81 16 101/57 99 Mechanical Ventilator 50 10/25/16 06:15 82 16 89/43 99 Mechanical Ventilator 50 10/25/16 06:00 76 16 96/60 99 Mechanical Ventilator 50 10/25/16 06:00 97/46 10/25/16 05:45 77 16 96/60 99 Mechanical Ventilator 50 10/25/16 05:30 78 16 91/63 99 Mechanical Ventilator 50 10/25/16 05:15 78 16 96/66 99 Mechanical Ventilator 50 10/25/16 05:00 77 16 90/72 99 Mechanical Ventilator 50 10/25/16 05:00 71/44 10/25/16 04:55 76 16 50 10/25/16 04:45 77 16 90/72 99 Mechanical Ventilator 50 10/25/16 04:30 78 16 71/44 100 Mechanical Ventilator 50 10/25/16 04:15 73 16 96/65 100 Mechanical Ventilator 50 10/25/16 04:00 96/65 10/25/16 04:00 98.4 73 16 95/64 100 Mechanical Ventilator 50 10/25/16 04:00 50 10/25/16 04:00 73 10/25/16 03:45 74 16 99/62 100 Mechanical Ventilator 50 10/25/16 03:30 74 16 95/64 100 Mechanical Ventilator 50 10/25/16 03:15 77 16 97/63 100 Mechanical Ventilator 50 10/25/16 03:13 77 15 50 10/25/16 03:00 97/63 10/25/16 03:00 76 16 99/66 100 Mechanical Ventilator 50 10/25/16 02:45 76 16 92/72 100 Mechanical Ventilator 50 10/25/16 02:30 77 16 96/63 100 Mechanical Ventilator 50 10/25/16 02:15 77 16 97/63 100 Mechanical Ventilator 50 10/25/16 02:00 78 16 94/56 100 Mechanical Ventilator 50 10/25/16 02:00 94/57 10/25/16 01:45 75 16 96/63 100 Mechanical Ventilator 50 10/25/16 01:30 76 16 92/63 100 Mechanical Ventilator 50 10/25/16 01:27 75 16 50 10/25/16 01:15 75 16 92/62 100 Mechanical Ventilator 50 10/25/16 01:00 75 16 94/60 100 Mechanical Ventilator 50 10/25/16 01:00 94/60 10/25/16 00:45 77 16 91/67 99 Mechanical Ventilator 50 10/25/16 00:30 80 16 93/58 100 Mechanical Ventilator 50 10/25/16 00:15 73 16 91/58 99 Mechanical Ventilator 50 10/25/16 00:00 74 10/25/16 00:00 50 10/25/16 00:00 91/58 10/25/16 00:00 98.7 74 16 90/57 99 Mechanical Ventilator 50 10/24/16 23:45 74 16 90/56 99 Mechanical Ventilator 50 10/24/16 23:30 74 16 100/62 99 Mechanical Ventilator 50 10/24/16 23:29 74 16 50 10/24/16 23:15 73 16 90/57 97 Mechanical Ventilator 50 10/24/16 23:00 76 16 76/58 97 Mechanical Ventilator 50 10/24/16 23:00 96/48 10/24/16 22:45 73 16 91/58 98 Mechanical Ventilator 50 10/24/16 22:30 75 19 91/58 98 Mechanical Ventilator 50 10/24/16 22:15 75 19 91/60 98 Mechanical Ventilator 50 10/24/16 22:00 75 19 91/60 98 Mechanical Ventilator 50 10/24/16 22:00 78/43 10/24/16 21:45 75 19 91/60 97 Mechanical Ventilator 50 10/24/16 21:30 74 19 86/53 97 Mechanical Ventilator 50 10/24/16 21:15 73 19 78/49 95 Mechanical Ventilator 50 10/24/16 21:14 79 16 50 10/24/16 21:02 72/48 10/24/16 21:00 73 19 72/46 94 Mechanical Ventilator 50 10/24/16 20:45 78 16 73/50 93 Mechanical Ventilator 50 10/24/16 20:38 77 10/24/16 20:30 166 19 87/52 93 Mechanical Ventilator 50 10/24/16 20:24 194 84/53 10/24/16 20:15 176 18 84/53 93 Mechanical Ventilator 50 10/24/16 20:00 97.9 177 22 69/53 93 Mechanical Ventilator 50 10/24/16 20:00 179 10/24/16 20:00 50 10/24/16 19:45 194 24 77/58 95 Mechanical Ventilator 50 10/24/16 19:30 210 26 56/42 97 Mechanical Ventilator 50 10/24/16 19:24 207 71/53 10/24/16 19:15 213 26 71/53 97 Mechanical Ventilator 50 Intake and Output 10/25/16 10/26/16 19:00 07:00 Intake Total 1931.92 ml Output Total 815 ml Balance 1116.92 ml Free Water 250 ml IV Total 1071.92 ml Tube Feeding 340 ml Blood Product 270 ml Output Urine Total 815 ml Laboratory Tests Test 10/25/16 05:00 10/25/16 15:45 White Blood Count 13.2 K/UL (4.8-10.8) H Red Blood Count 2.55 M/UL (4.70-6.10) L Hemoglobin 7.9 G/DL (14.2-18.0) L Hematocrit 24.1 % (42.0-52.0) L Mean Corpuscular Volume 95 FL (80-99) Mean Corpuscular Hemoglobin 31.0 PG (27.0-31.0) Mean Corpuscular Hemoglobin Concent 32.8 G/DL (32.0-36.0) Red Cell Distribution Width 18.3 % (11.6-14.8) H Platelet Count 66 K/UL (150-450) L Mean Platelet Volume 10.6 FL (6.5-10.1) H Neutrophils (%) (Auto) % (45.0-75.0) Lymphocytes (%) (Auto) % (20.0-45.0) Monocytes (%) (Auto) % (1.0-10.0) Eosinophils (%) (Auto) % (0.0-3.0) Basophils (%) (Auto) % (0.0-2.0) Differential Total Cells Counted 100 Neutrophils % (Manual) 67 % (45-75) Lymphocytes % (Manual) 14 % (20-45) L Monocytes % (Manual) 9 % (1-10) Eosinophils % (Manual) 0 % (0-3) Basophils % (Manual) 0 % (0-2) Band Neutrophils 10 % (0-8) H Platelet Estimate Decreased L Platelet Morphology Normal Hypochromasia 1+ Anisocytosis 1+ Sodium Level 150 mEQ/L (135-145) H Potassium Level 4.2 mEQ/L (3.4-4.9) Chloride Level 113 mEQ/L (98-107) H Carbon Dioxide Level 24 mEQ/L (20-30) Anion Gap 13 (5-15) Blood Urea Nitrogen 34 mg/dL (7-23) H Creatinine 1.4 mg/dL (0.7-1.2) H Estimat Glomerular Filtration Rate mL/min (>60) Glucose Level 126 mg/dL (74-106) H Calcium Level 8.6 mg/dL (8.6-10.2) Carcinoembryonic Antigen 5.0 ng/mL H Random Amikacin Level 3.9 ug/mL Vancomycin Level Trough 23.4 ug/mL (5.0-12.0) H Microbiology Date/Time Source Procedure Growth Status 10/23/16 16:00 Blood Blood Culture - Preliminary NO GROWTH AFTER 24 HOURS Resulted 10/23/16 15:17 Blood Blood Culture - Preliminary NO GROWTH AFTER 24 HOURS Resulted VERA AUGUSTINE Oct 25, 2016 19:19
--- NOTE | 2016-10-25 20:07 | Wound Care Consultation ---
Wound Assessment Wound Assessment #1: Wound Number: 1 Wound Present on Admission: Yes New Wound: No Status Change of Wound: No Wound Location Body Site Modif: mid Wound Location Body Site: other - sacrococcygeal area Wound Type: pressure ulcer Brianna Test: Does not Brianna Pressure Ulcer Stage: II - scattered Wound Thickness: Partial Thickness Wound Length: 3.0 Wound Width: 3.0 Percent of Wound Daisetta/Red: 100 Wound Drainage Description: Serosanguineous Wound Drainage Amount: Scant Wound Drainage Odor: None/Absent Tissue Surrounding Wound: Erythemic Wound General Appearance: Reddened Wound Assessment #2: Wound Number: 2 Wound Present on Admission: Yes New Wound: No Status Change of Wound: No Wound Location Body Site Modif: left, right, lower Wound Location Body Site: leg Wound Type: scab - scattered Brianna Test: Does not Brianna Wound Drainage Amount: None Wound Drainage Odor: None/Absent Tissue Surrounding Wound: Intact Wound Assessment #3: Wound Number: 3 Wound Present on Admission: Yes New Wound: No Status Change of Wound: No Wound Location Body Site Modif: right, lower, lateral Wound Location Body Site: leg Wound Type: blister - intact fluid filled Brianna Test: Does not Brianna Pressure Ulcer Stage: II Wound Thickness: Partial Thickness Wound Length: 2.5 Wound Width: 3.0 Wound Drainage Amount: None Wound Drainage Odor: None/Absent Tissue Surrounding Wound: Intact Wound Assessment #4: Wound Number: 4 Wound Present on Admission: Yes New Wound: No Status Change of Wound: No Wound Location Body Site: perineal area Wound Type: chemical burn - with erosion Brianna Test: Does not Brianna Percent of Wound Daisetta/Red: 100 Wound Drainage Amount: None Wound Drainage Odor: None/Absent Tissue Surrounding Wound: Erythemic Wound General Appearance: Reddened Wound Assessment #5: Wound Number: 5 Wound Present on Admission: Yes New Wound: No Status Change of Wound: No Wound Location Body Site Modif: right, anterior Wound Location Body Site: knee Wound Type: scab Brianna Test: Does not Brianna Wound Thickness: Full Thickness Wound Length: 1.5 Wound Width: 1.5 Wound Depth: utd Percent of Wound Bed Yellow/Wh: 100 Wound Drainage Amount: None Wound Drainage Odor: None/Absent Tissue Surrounding Wound: Intact Wound General Appearance: Reddened Wound Comment #1 Sacrococcygeal scattered stage II pressure ulcers #2 Left and right lower leg with scattered dry scabs #3 Right lower lateral leg intact fluid filled blister #4 perineal chemical burn with erosion #5 Right knee dry scab Recommendation -Keep clean and dry -Turn and reposition -Local wound care per protocol -Low air loss mattress -Offload both legs -Heel protector on both heels -Optimize nutrition -Assess and f/u accordingly for any changes MYNOR CHACON RN Oct 25, 2016 20:07
[2016-10-25] MEDS ORDERED: Dyna-Hex 2% Top Sol 8oz TOPIC SCH (21:00)
--- NOTE | 2016-10-25 23:54 | Infectious Diseases Prog Note ---
Assessment/Plan Assessment/Plan ASSESSMENT: Multilobar pneumonia --severe sepsis, TTE demonstrates significant systolic dysfunction with dilated IVC arguing against hypovolemic shock. Treating as multilobar pneumonia , r/o hepatic encephalopathy (ammonia nl), has hypoxemic encephalopathy, worsening shock liver on >48hrs pressors, and his limited RUQ u/s is suggestive of underlying cirrhosis. U/S negative for acute biliary disease --severe hypothermia s/p GABE hugger, resolved --slight leukocytosis --multilobar pneumonia with superimposed pulmonary edema sputum growing PSA and KPC -- CoNS in blood, one of 4 bottles contaminant --thrombocytopenia, --shock liver with worsening transaminitis on pressors acute viral hepatitis panel negative --probable h/o chronic liver disease --h/o depakote for mood d/o --hyperkalemia, improved --hypercalemia, corrected for hypoalb to 11.3 mg/dL --U/A negative for UTI --elevated TSH --hypoalbuminemia --VRE colonized PLAN: -- add IV Merrem, Colistin INH, d# 1 , cont Amikicain d# 5 -- DC IV vanc, and ertapenem D# 5 --f/u blood cx s --aspiration precautions, vent care, trach care --skin care --contact isolation per hospital policy Subjective Allergies: Coded Allergies: No Known Allergies (Unverified , 10/21/16) Subjective afebrile Objective Vital Signs Last 24 Hour Vital Signs Date Time Temp Pulse Resp B/P (MAP) Pulse Ox O2 Delivery O2 Flow Rate FiO2 10/25/16 23:06 82 16 50 10/25/16 22:00 74 16 82/55 99 Mechanical Ventilator 50 10/25/16 21:30 79 16 50 10/25/16 21:00 80 16 87/57 99 Mechanical Ventilator 50 10/25/16 20:35 100/61 10/25/16 20:00 50 10/25/16 20:00 87 10/25/16 20:00 98.7 77 16 83/53 100 Mechanical Ventilator 50 10/25/16 19:30 78 16 50 10/25/16 19:00 83 16 90/49 99 Mechanical Ventilator 50 10/25/16 18:00 83 16 99/58 99 Mechanical Ventilator 50 10/25/16 17:08 76 16 50 10/25/16 17:00 84 16 100/61 99 Mechanical Ventilator 50 10/25/16 16:00 86 10/25/16 16:00 50 10/25/16 16:00 84 16 89/55 99 Mechanical Ventilator 50 10/25/16 15:30 83 16 91/63 99 Mechanical Ventilator 50 10/25/16 15:02 81 16 50 10/25/16 15:00 84 16 90/56 99 Mechanical Ventilator 50 10/25/16 14:30 84 16 93/60 100 Mechanical Ventilator 50 10/25/16 14:00 91/60 10/25/16 14:00 99.0 84 16 102/62 100 Mechanical Ventilator 50 10/25/16 13:30 83 16 101/62 100 Mechanical Ventilator 50 10/25/16 13:00 78 16 50 10/25/16 13:00 103/64 10/25/16 13:00 88 16 106/65 100 Mechanical Ventilator 50 10/25/16 12:36 98.9 10/25/16 12:30 83 16 112/73 100 Mechanical Ventilator 50 10/25/16 12:00 97.9 85 16 103/66 100 Mechanical Ventilator 50 10/25/16 12:00 86 10/25/16 12:00 50 10/25/16 12:00 105/71 10/25/16 11:30 99.6 10/25/16 11:30 89 16 113/71 100 Mechanical Ventilator 50 10/25/16 11:03 75 16 50 10/25/16 11:00 110/73 10/25/16 11:00 82 16 107/62 100 Mechanical Ventilator 50 10/25/16 10:30 85 16 108/75 100 Mechanical Ventilator 50 10/25/16 10:00 84 16 108/71 99 Mechanical Ventilator 50 10/25/16 10:00 114/76 10/25/16 09:30 83 16 119/76 99 Mechanical Ventilator 50 10/25/16 09:00 111/73 10/25/16 09:00 81 16 111/68 99 Mechanical Ventilator 50 10/25/16 08:33 80 16 50 10/25/16 08:30 83 16 108/78 99 Mechanical Ventilator 50 10/25/16 08:00 78 10/25/16 08:00 50 10/25/16 08:00 111/67 10/25/16 08:00 98.7 74 16 106/77 99 Mechanical Ventilator 50 10/25/16 07:30 75 16 99/68 99 Mechanical Ventilator 50 10/25/16 07:02 80 17 50 10/25/16 07:00 80 16 97/63 99 Mechanical Ventilator 50 10/25/16 07:00 97/63 10/25/16 06:45 82 16 86/70 99 Mechanical Ventilator 50 10/25/16 06:30 81 16 101/57 99 Mechanical Ventilator 50 10/25/16 06:15 82 16 89/43 99 Mechanical Ventilator 50 10/25/16 06:00 76 16 96/60 99 Mechanical Ventilator 50 10/25/16 06:00 97/46 10/25/16 05:45 77 16 96/60 99 Mechanical Ventilator 50 10/25/16 05:30 78 16 91/63 99 Mechanical Ventilator 50 10/25/16 05:15 78 16 96/66 99 Mechanical Ventilator 50 10/25/16 05:00 77 16 90/72 99 Mechanical Ventilator 50 10/25/16 05:00 71/44 10/25/16 04:55 76 16 50 10/25/16 04:45 77 16 90/72 99 Mechanical Ventilator 50 10/25/16 04:30 78 16 71/44 100 Mechanical Ventilator 50 10/25/16 04:15 73 16 96/65 100 Mechanical Ventilator 50 10/25/16 04:00 96/65 10/25/16 04:00 98.4 73 16 95/64 100 Mechanical Ventilator 50 10/25/16 04:00 50 10/25/16 04:00 73 10/25/16 03:45 74 16 99/62 100 Mechanical Ventilator 50 10/25/16 03:30 74 16 95/64 100 Mechanical Ventilator 50 10/25/16 03:15 77 16 97/63 100 Mechanical Ventilator 50 10/25/16 03:13 77 15 50 10/25/16 03:00 97/63 10/25/16 03:00 76 16 99/66 100 Mechanical Ventilator 50 10/25/16 02:45 76 16 92/72 100 Mechanical Ventilator 50 10/25/16 02:30 77 16 96/63 100 Mechanical Ventilator 50 10/25/16 02:15 77 16 97/63 100 Mechanical Ventilator 50 10/25/16 02:00 78 16 94/56 100 Mechanical Ventilator 50 10/25/16 02:00 94/57 10/25/16 01:45 75 16 96/63 100 Mechanical Ventilator 50 10/25/16 01:30 76 16 92/63 100 Mechanical Ventilator 50 10/25/16 01:27 75 16 50 10/25/16 01:15 75 16 92/62 100 Mechanical Ventilator 50 10/25/16 01:00 75 16 94/60 100 Mechanical Ventilator 50 10/25/16 01:00 94/60 10/25/16 00:45 77 16 91/67 99 Mechanical Ventilator 50 10/25/16 00:30 80 16 93/58 100 Mechanical Ventilator 50 10/25/16 00:15 73 16 91/58 99 Mechanical Ventilator 50 10/25/16 00:00 74 10/25/16 00:00 50 10/25/16 00:00 91/58 10/25/16 00:00 98.7 74 16 90/57 99 Mechanical Ventilator 50 Height (Feet): 5 Height (Inches): 10.00 Weight (Pounds): 167 HEENT: mucous membranes moist Respiratory/Chest: no respiratory distress Cardiovascular: regular rhythm Abdomen: no organomegaly Microbiology Date/Time Source Procedure Growth Status 10/23/16 16:00 Blood Blood Culture - Preliminary NO GROWTH AFTER 24 HOURS Resulted 10/23/16 15:17 Blood Blood Culture - Preliminary NO GROWTH AFTER 24 HOURS Resulted Laboratory Tests Test 10/25/16 05:00 10/25/16 15:45 White Blood Count 13.2 K/UL (4.8-10.8) H Red Blood Count 2.55 M/UL (4.70-6.10) L Hemoglobin 7.9 G/DL (14.2-18.0) L Hematocrit 24.1 % (42.0-52.0) L Mean Corpuscular Volume 95 FL (80-99) Mean Corpuscular Hemoglobin 31.0 PG (27.0-31.0) Mean Corpuscular Hemoglobin Concent 32.8 G/DL (32.0-36.0) Red Cell Distribution Width 18.3 % (11.6-14.8) H Platelet Count 66 K/UL (150-450) L Mean Platelet Volume 10.6 FL (6.5-10.1) H Neutrophils (%) (Auto) % (45.0-75.0) Lymphocytes (%) (Auto) % (20.0-45.0) Monocytes (%) (Auto) % (1.0-10.0) Eosinophils (%) (Auto) % (0.0-3.0) Basophils (%) (Auto) % (0.0-2.0) Differential Total Cells Counted 100 Neutrophils % (Manual) 67 % (45-75) Lymphocytes % (Manual) 14 % (20-45) L Monocytes % (Manual) 9 % (1-10) Eosinophils % (Manual) 0 % (0-3) Basophils % (Manual) 0 % (0-2) Band Neutrophils 10 % (0-8) H Platelet Estimate Decreased L Platelet Morphology Normal Hypochromasia 1+ Anisocytosis 1+ Sodium Level 150 mEQ/L (135-145) H Potassium Level 4.2 mEQ/L (3.4-4.9) Chloride Level 113 mEQ/L (98-107) H Carbon Dioxide Level 24 mEQ/L (20-30) Anion Gap 13 (5-15) Blood Urea Nitrogen 34 mg/dL (7-23) H Creatinine 1.4 mg/dL (0.7-1.2) H Estimat Glomerular Filtration Rate mL/min (>60) Glucose Level 126 mg/dL (74-106) H Calcium Level 8.6 mg/dL (8.6-10.2) Carcinoembryonic Antigen 5.0 ng/mL H Random Amikacin Level 3.9 ug/mL Vancomycin Level Trough 23.4 ug/mL (5.0-12.0) H Current Medications Medications (Trade) Dose Ordered Sig/Estelle Route PRN Reason Start Time Stop Time Status Last Admin Dose Admin Acetaminophen (Tylenol) 650 mg Q4H PRN ORAL fever 10/21/16 13:45 11/20/16 13:44 10/25/16 11:37 Albuterol/ Ipratropium (DuoNeb 0.5-3(2.5)mg/3ml) 3 ml Q4H PRN HHN Shortness of Breath 10/21/16 13:45 10/26/16 13:44 Amikacin Protocol (Amikacin pharmacy to dose) 1 ea DAILY PRN MISC PER RX PROTOCOL 10/21/16 14:15 11/20/16 14:14 Amikacin Sulfate 1000 mg/Sodium Chloride 114 ml @ 228 mls/hr Q48H IV 10/23/16 16:00 10/28/16 15:59 10/25/16 18:50 Chlorhexidine Gluconate (Ada-Hex 2%) 1 applic BEDTIME TOPIC 10/25/16 21:00 11/21/16 08:59 10/25/16 20:47 Colistimethate Sodium (Colistin *inhalation use only*) 150 mg Q12HR INH 10/25/16 21:00 11/01/16 20:59 Diltiazem HCl (Cardizem) 10 mg EVERY HOUR PRN IV UNTIL HR 120 10/24/16 19:15 11/23/16 19:14 10/24/16 20:24 Lansoprazole (Prevacid) 30 mg Q12HR GT 10/22/16 22:00 11/21/16 21:59 10/25/16 20:47 Levothyroxine Sodium (Synthroid) 25 mcg DAILY@0630 GT 10/26/16 06:30 11/24/16 06:29 Lorazepam (Ativan 2mg/ml 1ml) 2 mg Q2H PRN IV For Anxiety 10/21/16 13:45 10/28/16 13:44 Meropenem 2 gm/ Sodium Chloride 110 ml @ 220 mls/hr Q12HR@0600,1800 IVPB 10/25/16 18:00 10/30/16 17:59 10/25/16 18:50 Morphine Sulfate (Morphine Sulfate) 4 mg Q4H PRN IVP Severe Pain (Pain Scale 7-10) 10/21/16 13:45 10/28/16 13:44 Norepinephrine Bitartrate 8 mg/ Dextrose 508 ml @ 0 mls/hr Q24H IV 10/21/16 20:35 11/20/16 20:34 10/24/16 21:02 Ondansetron HCl (Zofran) 4 mg Q6H PRN IVP Nausea & Vomiting 10/21/16 13:45 11/20/16 13:44 Polyethylene Glycol (Miralax) 17 gm DAILYPRN PRN GT Constipation 10/25/16 11:15 11/20/16 13:44 Sodium Chloride 1,000 ml @ 50 mls/hr Q20H IV 10/25/16 19:30 11/24/16 19:29 10/25/16 19:30 Vancomycin HCl (Vanco rx to dose) 1 ea DAILY PRN MISC PER RX PROTOCOL 10/21/16 14:00 11/20/16 13:59 Vancomycin HCl 1 gm/Dextrose 275 ml @ 183.708 mls/hr Q24H IVPB 10/26/16 21:00 10/31/16 20:59 NATANAEL GARLAND M.D. Oct 25, 2016 23:54
[2016-10-26] VITALS (23 sets, daily range): BP systolic 77–102; BP diastolic 49–65
[2016-10-26] MEDS: Colistin for inhalation INH SCH ×3 (00:36→22:33)
[2016-10-26 05:30] LABS: MEAN CORPUSCULAR HEMOGLOBIN 29.8 PG (27.0-31.0); MEAN CORPUSCULAR HGB CONC 32.2 G/DL (32.0-36.0); MEAN CORPUSCULAR VOLUME 93 FL (80-99); MEAN PLATELET VOLUME 7.7 FL (6.5-10.1); PLATELET COUNT 72 K/UL (150-450); RED CELL DISTRIBUTION WIDTH 19.8 % (11.6-14.8); WHITE BLOOD COUNT 12.7 K/UL (4.8-10.8)
[2016-10-26 06:15] LABS: ALANINE AMINOTRANSFERASE 192 U/L (3-41); ALBUMIN/GLOBULIN RATIO 0.3 (1.0-2.7); ANION GAP 10 (5-15); ASPARTATE AMINO TRANSFERASE 256 U/L (5-40); CALCIUM 8.3 mg/dL (8.6-10.2); CARBON DIOXIDE 25 mEQ/L (20-30); CHLORIDE 110 mEQ/L (98-107); CREATININE 1.9 mg/dL (0.7-1.2); HEMOLYSIS 2; MAGNESIUM 2.1 mg/dL (1.7-2.5); PHOSPHORUS 5.7 mg/dL (2.5-4.8); POTASSIUM 3.9 mEQ/L (3.4-4.9); SODIUM 145 mEQ/L (135-145); TOTAL PROTEIN 6.3 g/dL (6.6-8.7)
[2016-10-26] MEDS ORDERED: Meropenem 1gm vial ONE (06:16)
[2016-10-26] MEDS: Meropenem 2 GM in NS 110 ML IVPB SCH ×2 (06:23→17:51)
[2016-10-26 06:26] LABS: TROPONIN I 11.48 ng/mL (<=0.30)
[2016-10-26] MEDS: Levothyroxine 25mcg tab GT SCH (06:28)
[2016-10-26] MEDS ORDERED: Levothyroxine 25mcg tab ORAL SCH (06:30)
--- NOTE | 2016-10-26 06:45 | Consultation ---
DATE OF CONSULTATION: 10/25/2016 NOTE: POOR AUDIO QUALITY CARDIOLOGY CONSULTATION CONSULTING PHYSICIAN: Moreno Laureano M.D. REFERRING PHYSICIAN: Jayleen Mary M.D. REASON FOR REFERRAL: Cardiomyopathy. HISTORY OF PRESENT ILLNESS: This is an elderly gentleman, who is on a mechanical ventilator. ____. The patient was noted to have cardiomyopathy, consultation requested. The patient is unable to provide any meaningful history whatsoever. The patient's chart indicates the patient with a history of encephalopathy, respiratory failure, COPD, ischemic cardiomyopathy, hypertension, gout, coronary artery disease, details of which were . The patient presented to the hospital because of those issues plus does have ejection fraction of 30% to 35%, this consultation requested. PAST MEDICAL HISTORY: Including anemia, gastroesophageal reflux disease, hyperlipidemia, ST-elevation myocardial infarction, GI bleeding, hypertension, diabetes mellitus, gastrostomy tube, chronic respiratory failure, COPD, and generalized weakness. MEDICATIONS: medications include Aricept, Ativan, Colace, Coreg 3.125 mg twice a day, , iron sulfate, furosemide, 25 mg every 6 hours as needed and 25 mg 2 times daily with hold parameters for systolic blood pressure less than 110, and Isordil 10 mg 3 times a day. He is on Depakote as well. His medications at this time includes normal saline. He is on Tylenol, amikacin, , and Cardizem on an as-needed basis, Atrovent and albuterol, Prevacid, Synthroid 25 mcg, meropenem, morphine, norepinephrine, Zofran, vancomycin. He is off of pressors at this time. ALLERGIES: The patient has no known drug allergies. REVIEW OF SYSTEMS: Unable to obtain. PHYSICAL EXAMINATION: GENERAL: Shows elderly gentleman, on a mechanical ventilator. NECK: Supple. LUNGS: Rhonchi noted. CARDIAC: Regular rate and rhythm. ABDOMEN: Soft and nontender. Positive bowel sounds. EXTREMITIES: There is no clubbing or cyanosis. Pneumatic compression stockings are in place. There is mild edema that is noted. LABORATORY AND DIAGNOSTIC DATA: He has got a hemoglobin of 7.9, up from 6.9 with a white count 13.2, up from 10.0, and platelet count of 66,000, up from 45,000. He has 8% to 10% bandemia. Blood gases, pH is 7.35, pCO2 of 50, pO2 of 84, and bicarbonate of 27. Sodium is 150, potassium 4.2, chloride 113, bicarb of 24, BUN of 34, creatinine 1.4, and glucose of 86. CEA is 5. B12 greater than 2000. TSH is 9.97 and free T4 is 0.71. INR is 1. PTT of 36. Electrocardiogram shows what appears to be sinus with leftward axis. No ST-T abnormalities. He had an EKG that shows 127, wide complex tachycardia at a rate of 205. ASSESSMENT: 1. Ischemic cardiomyopathy. 2. Anoxic encephalopathy. 3. Hypotension. 4. Septic shock. 5. Thrombocytopenia. 6. Differential tachycardia with aberrancy. 7. Hypernatremia. 8. Pulmonary hypertension. 9. Anemia. 10. Systolic heart failure, acute on chronic. 11. Abnormal liver function test. 12. Hypothyroidism. PLAN: Dr. Mary, this patient was seen in cardiac consultation. The patient's rhythm appears to be stable at the present time. He is off of pressors for the past few hours, however, he was given significant amount of intravenous fluid and ejection fraction is 30% to 35%. His respiratory status has been worsened. His blood pressure at the present time is borderline. No KAISER inhibitors or beta-blockers at this time because of hypotension. Dobutamine at a low dose should be considered for cardiomyopathy. Cardiac enzymes will be ordered for tomorrow morning. Moreno Laureano M.D. DR: TORITO JOB#: [id number] CC:
[2016-10-26 08:07] LABS: BAND NEUTROPHILS % (MANUAL) 7 % (0-8); EOSINOPHILS % (MANUAL) 2 % (0-3); LYMPHOCYTES % (MANUAL) 11 % (20-45); NEUTROPHILS % (MANUAL) 74 % (45-75); TOTAL CELLS COUNTED 100
[2016-10-26 08:09] LABS: BASOPHILS % (MANUAL) 0 % (0-2); PLATELET ESTIMATE DECREASED; PLATELET MORPHOLOGY NORMAL
[2016-10-26 08:10] LABS: ANISOCYTOSIS 2+
[2016-10-26 08:11] LABS: HYPOCHROMASIA 1+
[2016-10-26] MEDS: Aspirin Baby 81mg NG SCH (09:24)
[2016-10-26 11:31] LABS: ABG ALLEN TEST POSITIVE; ABG BASE EXCESS -1.8; ABG PCO2 56.4 mmHg (35.0-45.0)
--- NOTE | 2016-10-26 11:42 | Cardiology Progress Note ---
Assessment/Plan Assessment/Plan icm anoxic encephalopathy hypotesnion 1. Ischemic cardiomyopathy. 2. Anoxic encephalopathy. 3. Hypotension. 4. Septic shock. 5. Thrombocytopenia. 6. Differential tachycardia with aberrancy. 7. Hypernatremia. 8. Pulmonary hypertension. 9. Anemia. 10. Systolic heart failure, acute on chronic. 11. Abnormal liver function test. 12. Hypothyroidism. 13. NSTEMI is off pressors bp borderline no cy oir bb at this time watch ivf cannot use dobutamine in light of elevated trop ekg reviewed no st t wave abn prior echo report reviewed not a candidate for any invasive rxn once bp improves bb and then acei ecotrin started statin started vent support dc ivf if needed resatr ton norepinephrine abx d/w staff on several occasion d/w dr escalante critically ill at risk of dying Subjective ROS Limited/Unobtainable: Yes Objective Last 24 Hour Vital Signs Date Time Temp Pulse Resp B/P (MAP) Pulse Ox O2 Delivery O2 Flow Rate FiO2 10/26/16 11:00 81 16 90/55 100 Mechanical Ventilator 50 10/26/16 10:41 81 16 50 10/26/16 10:01 86 16 100 Mechanical Ventilator 50 10/26/16 10:01 50 10/26/16 10:00 78 16 100/59 100 Mechanical Ventilator 50 10/26/16 09:00 77 16 97/65 100 Mechanical Ventilator 50 10/26/16 08:50 85 16 50 10/26/16 08:00 97.9 77 16 97/58 100 Mechanical Ventilator 50 10/26/16 08:00 72 10/26/16 08:00 50 10/26/16 07:00 77 16 95/56 99 Mechanical Ventilator 50 10/26/16 06:42 80 16 50 10/26/16 06:00 80 16 89/65 99 Mechanical Ventilator 50 10/26/16 05:20 77 16 50 10/26/16 05:00 76 16 102/63 99 Mechanical Ventilator 50 10/26/16 04:00 98.9 72 16 98/61 100 Mechanical Ventilator 50 10/26/16 04:00 50 10/26/16 04:00 76 10/26/16 03:20 74 16 50 10/26/16 03:00 73 16 96/54 99 Mechanical Ventilator 50 10/26/16 02:00 74 16 94/54 99 Mechanical Ventilator 50 10/26/16 01:00 76 16 99/62 99 Mechanical Ventilator 50 10/26/16 00:38 50 10/26/16 00:37 76 16 100 Mechanical Ventilator 60.0 50 10/26/16 00:07 77 16 50 10/26/16 00:00 50 10/26/16 00:00 98.9 72 16 100/60 100 Mechanical Ventilator 50 10/26/16 00:00 73 10/25/16 23:06 82 16 50 10/25/16 23:00 74 16 101/60 99 Mechanical Ventilator 50 10/25/16 22:00 74 16 82/55 99 Mechanical Ventilator 50 10/25/16 21:30 79 16 50 10/25/16 21:00 80 16 87/57 99 Mechanical Ventilator 50 10/25/16 20:35 100/61 10/25/16 20:00 50 10/25/16 20:00 87 10/25/16 20:00 98.7 77 16 83/53 100 Mechanical Ventilator 50 10/25/16 19:30 78 16 50 10/25/16 19:00 83 16 90/49 99 Mechanical Ventilator 50 10/25/16 18:00 83 16 99/58 99 Mechanical Ventilator 50 10/25/16 17:08 76 16 50 10/25/16 17:00 84 16 100/61 99 Mechanical Ventilator 50 10/25/16 16:00 86 10/25/16 16:00 50 10/25/16 16:00 84 16 89/55 99 Mechanical Ventilator 50 10/25/16 15:30 83 16 91/63 99 Mechanical Ventilator 50 10/25/16 15:02 81 16 50 10/25/16 15:00 84 16 90/56 99 Mechanical Ventilator 50 10/25/16 14:30 84 16 93/60 100 Mechanical Ventilator 50 10/25/16 14:00 91/60 10/25/16 14:00 99.0 84 16 102/62 100 Mechanical Ventilator 50 10/25/16 13:30 83 16 101/62 100 Mechanical Ventilator 50 10/25/16 13:00 78 16 50 10/25/16 13:00 103/64 10/25/16 13:00 88 16 106/65 100 Mechanical Ventilator 50 10/25/16 12:36 98.9 10/25/16 12:30 83 16 112/73 100 Mechanical Ventilator 50 10/25/16 12:00 97.9 85 16 103/66 100 Mechanical Ventilator 50 10/25/16 12:00 86 10/25/16 12:00 50 10/25/16 12:00 105/71 General Appearance: no apparent distress, on vent, patient on isolation Neck: supple Cardiovascular: normal rate, regular rhythm Respiratory/Chest: rhonchi - bilaterally Abdomen: normal bowel sounds, non tender, soft Extremities: no swelling Intake and Output 10/26/16 10/27/16 19:00 07:00 Intake Total 450 ml Output Total 25 ml Balance 425 ml Free Water 50 ml IV Total 200 ml Tube Feeding 200 ml Output Urine Total 25 ml Laboratory Tests Test 10/25/16 15:45 10/26/16 04:00 10/26/16 11:23 Random Amikacin Level 3.9 ug/mL Vancomycin Level Trough 23.4 ug/mL (5.0-12.0) H White Blood Count 12.7 K/UL (4.8-10.8) H Red Blood Count 2.80 M/UL (4.70-6.10) L Hemoglobin 8.3 G/DL (14.2-18.0) L Hematocrit 25.9 % (42.0-52.0) L Mean Corpuscular Volume 93 FL (80-99) Mean Corpuscular Hemoglobin 29.8 PG (27.0-31.0) Mean Corpuscular Hemoglobin Concent 32.2 G/DL (32.0-36.0) Red Cell Distribution Width 19.8 % (11.6-14.8) H Platelet Count 72 K/UL (150-450) L Mean Platelet Volume 7.7 FL (6.5-10.1) Neutrophils (%) (Auto) % (45.0-75.0) Lymphocytes (%) (Auto) % (20.0-45.0) Monocytes (%) (Auto) % (1.0-10.0) Eosinophils (%) (Auto) % (0.0-3.0) Basophils (%) (Auto) % (0.0-2.0) Differential Total Cells Counted 100 Neutrophils % (Manual) 74 % (45-75) Lymphocytes % (Manual) 11 % (20-45) L Monocytes % (Manual) 6 % (1-10) Eosinophils % (Manual) 2 % (0-3) Basophils % (Manual) 0 % (0-2) Band Neutrophils 7 % (0-8) Platelet Estimate Decreased L Platelet Morphology Normal Hypochromasia 1+ Anisocytosis 2+ Sodium Level 145 mEQ/L (135-145) Potassium Level 3.9 mEQ/L (3.4-4.9) Chloride Level 110 mEQ/L (98-107) H Carbon Dioxide Level 25 mEQ/L (20-30) Anion Gap 10 (5-15) Blood Urea Nitrogen 44 mg/dL (7-23) H Creatinine 1.9 mg/dL (0.7-1.2) H Estimat Glomerular Filtration Rate mL/min (>60) Glucose Level 118 mg/dL (74-106) H Calcium Level 8.3 mg/dL (8.6-10.2) L Phosphorus Level 5.7 mg/dL (2.5-4.8) H Magnesium Level 2.1 mg/dL (1.7-2.5) Total Bilirubin 0.6 mg/dL (0.0-1.2) Aspartate Amino Transf (AST/SGOT) 256 U/L (5-40) H Alanine Aminotransferase (ALT/SGPT) 192 U/L (3-41) H Alkaline Phosphatase 183 U/L (40-129) H Troponin I 11.48 ng/mL (<=0.30) *H Pro-B-Type Natriuretic Peptide 49214 pg/mL (0-125) H Total Protein 6.3 g/dL (6.6-8.7) L Albumin 1.7 g/dL (3.5-5.2) L Globulin 4.6 g/dL Albumin/Globulin Ratio 0.3 (1.0-2.7) L Arterial Blood pH 7.272 (7.350-7.450) Arterial Blood Partial Pressure CO2 56.4 mmHg (35.0-45.0) *H Arterial Blood Partial Pressure O2 86.3 mmHg (75.0-100.0) Arterial Blood HCO3 25.4 mmol/L (22.0-26.0) Arterial Blood Oxygen Saturation 94.2 % (92.0-98.0) Arterial Blood Base Excess -1.8 Jones Test Positive Microbiology Date/Time Source Procedure Growth Status 10/23/16 16:00 Blood Blood Culture - Preliminary NO GROWTH AFTER 48 HOURS Resulted 10/23/16 15:17 Blood Blood Culture - Preliminary NO GROWTH AFTER 48 HOURS Resulted VERA AUGUSTINE Oct 26, 2016 11:42
--- NOTE | 2016-10-26 12:27 | Diagnostic Imaging Report ---
Indication: Dyspnea Comparison: 10/25/16 A single view chest radiograph was obtained. Findings: Extensive infiltrates again demonstrated unchanged. Cardiomegaly is stable. Tubes and lines are stable Impression: No foreign exchange dealer the last day
[2016-10-26 12:52] LABS: TROPONIN I 7.62 ng/mL (<=0.30)
--- NOTE | 2016-10-26 14:09 | Consultation ---
Consult Note Consult Note asked to eval for rising BUN and Cr. seen in ICU examined- data reviewed discussed with hydroblaster/Plan Acute renal failure- MultiFactorial due to mainly septic shock (1) Acute and chronic respiratory failure (2) Septic shock (3) Feeding by G-tube (4) Hypoxemic encephalopathy (5) Severe anemia (6) SVT (supraventricular tachycardia) (7) High Troponin Plan: Aim to keep BP up, pressors if needed Avoid nephrotoxics as possible- Monitor renal parameters Urine studies YONNY LYONS Oct 26, 2016 14:09
[2016-10-26] MEDS ORDERED: Tubing IV Blood Pump IV ONE (14:18)
[2016-10-26] MEDS ORDERED: Tubing IV Secondary IV ONE (14:18)
[2016-10-26] MEDS ORDERED: NS 275ml ONE (14:18)
[2016-10-26 14:26] LABS: HEMATOCRIT 20.4 % (37.5-51.0)
--- NOTE | 2016-10-26 15:35 | Cardiology Report ---
APPROVED REPORT EKG Measurement Heart [id number] Sinus rhythm with premature atrial complexes Nonspecific T wave abnormality Abnormal ECG
--- NOTE | 2016-10-26 15:57 | Cardiology Report ---
APPROVED REPORT EKG Measurement Heart [id number] Sinus rhythm with 1st degree AV block Nonspecific T wave abnormality Prolonged QT Abnormal ECG
[2016-10-26] MEDS ORDERED: Vancomycin 1gm in D5W 275ml IVPB SCH (21:00)
--- NOTE | 2016-10-26 21:15 | Infectious Diseases Prog Note ---
Assessment/Plan Assessment/Plan ASSESSMENT: Multilobar pneumonia --severe sepsis, improving , off of AB Rx TTE demonstrates significant systolic dysfunction with dilated IVC arguing against hypovolemic shock. Treating as multilobar pneumonia --severe hypothermia s/p GABE hugger, resolved --slight leukocytosis --multilobar pneumonia with superimposed pulmonary edema sputum growing PSA and KPC -- CoNS in blood, one of 4 bottles contaminant --thrombocytopenia, --shock liver: transaminitis improving acute viral hepatitis panel negative --probable h/o chronic liver disease --h/o depakote for mood d/o --U/A negative for UTI --elevated TSH --hypoalbuminemia --VRE colonized -- VIANCA ( ? 2nd to Amikacin ) PLAN: -- cont IV Merrem, Colistin INH, d# 2/ , add Cefepime d# / , DC Amikicain d# 6 -- DC IV vanc, and ertapenem D# 5 --f/u blood cx s --aspiration precautions, vent care, trach care --skin care --contact isolation per hospital policy Subjective Allergies: Coded Allergies: No Known Allergies (Unverified , 10/21/16) Subjective on vent Objective Vital Signs Last 24 Hour Vital Signs Date Time Temp Pulse Resp B/P (MAP) Pulse Ox O2 Delivery O2 Flow Rate FiO2 10/26/16 20:35 82/55 10/26/16 19:30 75 20 50 10/26/16 19:00 76 16 90/57 100 Mechanical Ventilator 50 10/26/16 18:00 78 16 90/57 100 Mechanical Ventilator 50 10/26/16 17:04 74 20 50 10/26/16 17:00 76 16 87/52 100 Mechanical Ventilator 50 10/26/16 16:00 50 10/26/16 16:00 75 10/26/16 16:00 97.9 76 16 80/51 100 Mechanical Ventilator 50 10/26/16 15:00 76 16 95/59 100 Mechanical Ventilator 50 10/26/16 14:44 75 20 50 10/26/16 14:00 74 16 89/59 100 Mechanical Ventilator 50 10/26/16 12:35 73 20 50 10/26/16 12:00 97.8 74 16 94/57 100 Mechanical Ventilator 50 10/26/16 12:00 73 10/26/16 12:00 50 10/26/16 11:50 83 18 10/26/16 11:00 81 16 90/55 100 Mechanical Ventilator 50 10/26/16 10:41 81 16 50 10/26/16 10:01 86 16 100 Mechanical Ventilator 50 10/26/16 10:01 50 10/26/16 10:00 78 16 100/59 100 Mechanical Ventilator 50 10/26/16 09:00 77 16 97/65 100 Mechanical Ventilator 50 10/26/16 08:50 85 16 50 10/26/16 08:00 97.9 77 16 97/58 100 Mechanical Ventilator 50 10/26/16 08:00 72 10/26/16 08:00 50 10/26/16 07:00 77 16 95/56 99 Mechanical Ventilator 50 10/26/16 06:42 80 16 50 10/26/16 06:00 80 16 89/65 99 Mechanical Ventilator 50 10/26/16 05:20 77 16 50 10/26/16 05:00 76 16 102/63 99 Mechanical Ventilator 50 10/26/16 04:00 98.9 72 16 98/61 100 Mechanical Ventilator 50 10/26/16 04:00 50 10/26/16 04:00 76 10/26/16 03:20 74 16 50 10/26/16 03:00 73 16 96/54 99 Mechanical Ventilator 50 10/26/16 02:00 74 16 94/54 99 Mechanical Ventilator 50 10/26/16 01:00 76 16 99/62 99 Mechanical Ventilator 50 10/26/16 00:38 50 10/26/16 00:37 76 16 100 Mechanical Ventilator 60.0 50 10/26/16 00:07 77 16 50 10/26/16 00:00 50 10/26/16 00:00 98.9 72 16 100/60 100 Mechanical Ventilator 50 10/26/16 00:00 73 10/25/16 23:06 82 16 50 10/25/16 23:00 74 16 101/60 99 Mechanical Ventilator 50 10/25/16 22:00 74 16 82/55 99 Mechanical Ventilator 50 10/25/16 21:30 79 16 50 Height (Feet): 5 Height (Inches): 10.00 Weight (Pounds): 170 HEENT: anicteric Respiratory/Chest: normal breath sounds Cardiovascular: regular rhythm Abdomen: no organomegaly Laboratory Tests Test 10/26/16 04:00 10/26/16 11:23 10/26/16 12:00 10/26/16 14:20 White Blood Count 12.7 K/UL (4.8-10.8) H Red Blood Count 2.80 M/UL (4.70-6.10) L Hemoglobin 8.3 G/DL (14.2-18.0) L Hematocrit 25.9 % (42.0-52.0) L Mean Corpuscular Volume 93 FL (80-99) Mean Corpuscular Hemoglobin 29.8 PG (27.0-31.0) Mean Corpuscular Hemoglobin Concent 32.2 G/DL (32.0-36.0) Red Cell Distribution Width 19.8 % (11.6-14.8) H Platelet Count 72 K/UL (150-450) L Mean Platelet Volume 7.7 FL (6.5-10.1) Neutrophils (%) (Auto) % (45.0-75.0) Lymphocytes (%) (Auto) % (20.0-45.0) Monocytes (%) (Auto) % (1.0-10.0) Eosinophils (%) (Auto) % (0.0-3.0) Basophils (%) (Auto) % (0.0-2.0) Differential Total Cells Counted 100 Neutrophils % (Manual) 74 % (45-75) Lymphocytes % (Manual) 11 % (20-45) L Monocytes % (Manual) 6 % (1-10) Eosinophils % (Manual) 2 % (0-3) Basophils % (Manual) 0 % (0-2) Band Neutrophils 7 % (0-8) Platelet Estimate Decreased L Platelet Morphology Normal Hypochromasia 1+ Anisocytosis 2+ Sodium Level 145 mEQ/L (135-145) Potassium Level 3.9 mEQ/L (3.4-4.9) Chloride Level 110 mEQ/L (98-107) H Carbon Dioxide Level 25 mEQ/L (20-30) Anion Gap 10 (5-15) Blood Urea Nitrogen 44 mg/dL (7-23) H Creatinine 1.9 mg/dL (0.7-1.2) H Estimat Glomerular Filtration Rate mL/min (>60) Glucose Level 118 mg/dL (74-106) H Calcium Level 8.3 mg/dL (8.6-10.2) L Phosphorus Level 5.7 mg/dL (2.5-4.8) H Magnesium Level 2.1 mg/dL (1.7-2.5) Total Bilirubin 0.6 mg/dL (0.0-1.2) Aspartate Amino Transf (AST/SGOT) 256 U/L (5-40) H Alanine Aminotransferase (ALT/SGPT) 192 U/L (3-41) H Alkaline Phosphatase 183 U/L (40-129) H Troponin I 11.48 ng/mL (<=0.30) *H 7.62 ng/mL (<=0.30) *H Pro-B-Type Natriuretic Peptide 68441 pg/mL (0-125) H Total Protein 6.3 g/dL (6.6-8.7) L Albumin 1.7 g/dL (3.5-5.2) L Globulin 4.6 g/dL Albumin/Globulin Ratio 0.3 (1.0-2.7) L Arterial Blood pH 7.272 (7.350-7.450) Arterial Blood Partial Pressure CO2 56.4 mmHg (35.0-45.0) *H Arterial Blood Partial Pressure O2 86.3 mmHg (75.0-100.0) Arterial Blood HCO3 25.4 mmol/L (22.0-26.0) Arterial Blood Oxygen Saturation 94.2 % (92.0-98.0) Arterial Blood Base Excess -1.8 Jones Test Positive Urine Random Sodium 39 mmol/L Current Medications Medications (Trade) Dose Ordered Sig/Estelle Route PRN Reason Start Time Stop Time Status Last Admin Dose Admin Acetaminophen (Tylenol) 650 mg Q4H PRN ORAL fever 10/21/16 13:45 11/20/16 13:44 10/25/16 11:37 Amikacin Protocol (Amikacin pharmacy to dose) 1 ea DAILY PRN MISC PER RX PROTOCOL 10/21/16 14:15 11/20/16 14:14 Amikacin Sulfate 1000 mg/Sodium Chloride 114 ml @ 228 mls/hr Q48H IV 10/23/16 16:00 10/28/16 15:59 10/25/16 18:50 Aspirin (ASA) 81 mg DAILY NG 10/26/16 09:00 11/25/16 08:59 10/26/16 09:24 Atorvastatin Calcium (Lipitor) 40 mg BEDTIME ORAL 10/26/16 21:00 11/25/16 20:59 10/26/16 20:27 Colistimethate Sodium (Colistin *inhalation use only*) 150 mg Q12HR INH 10/25/16 21:00 11/01/16 20:59 10/26/16 10:00 Diltiazem HCl (Cardizem) 10 mg EVERY HOUR PRN IV UNTIL HR 120 10/24/16 19:15 11/23/16 19:14 10/24/16 20:24 Lansoprazole (Prevacid) 30 mg Q12HR GT 10/22/16 22:00 11/21/16 21:59 10/26/16 20:27 Levothyroxine Sodium (Synthroid) 25 mcg DAILY@0630 GT 10/26/16 06:30 11/24/16 06:29 10/26/16 06:28 Lorazepam (Ativan 2mg/ml 1ml) 2 mg Q2H PRN IV For Anxiety 10/21/16 13:45 10/28/16 13:44 Meropenem 2 gm/ Sodium Chloride 110 ml @ 220 mls/hr Q12HR@0600,1800 IVPB 10/25/16 18:00 10/30/16 17:59 10/26/16 17:51 Morphine Sulfate (Morphine Sulfate) 4 mg Q4H PRN IVP Severe Pain (Pain Scale 7-10) 10/21/16 13:45 10/28/16 13:44 Norepinephrine Bitartrate 8 mg/ Dextrose 508 ml @ 0 mls/hr Q24H IV 10/21/16 20:35 11/20/16 20:34 10/24/16 21:02 Ondansetron HCl (Zofran) 4 mg Q6H PRN IVP Nausea & Vomiting 10/21/16 13:45 11/20/16 13:44 Polyethylene Glycol (Miralax) 17 gm DAILYPRN PRN GT Constipation 10/25/16 11:15 11/20/16 13:44 NATANAEL GARLAND M.D. Oct 26, 2016 21:15
[2016-10-26] MEDS ORDERED: NS 200 ML IVPB ONE (22:15)
[2016-10-26] MEDS: Cefepime HCl 2 GM in D5W 110 ML IVPB SCH (22:54)
[2016-10-27] VITALS (24 sets, daily range): BP systolic 82–99; BP diastolic 43–68
[2016-10-27 05:52] LABS: BASOPHILS % (AUTO) 0.2 % (0.0-2.0); EOSINOPHILS % (AUTO) 3.8 % (0.0-3.0); LYMPHOCYTES % (AUTO) 12.7 % (20.0-45.0); MEAN CORPUSCULAR HEMOGLOBIN 30.9 PG (27.0-31.0); MEAN CORPUSCULAR HGB CONC 33.6 G/DL (32.0-36.0); MEAN CORPUSCULAR VOLUME 92 FL (80-99); MEAN PLATELET VOLUME 8.1 FL (6.5-10.1); MONOCYTES % (AUTO) 9.3 % (1.0-10.0); PLATELET COUNT 112 K/UL (150-450); RED BLOOD COUNT 2.68 M/UL (4.70-6.10); RED CELL DISTRIBUTION WIDTH 18.8 % (11.6-14.8)
[2016-10-27] MEDS: Meropenem 2 GM in NS 110 ML IVPB SCH ×2 (06:05→18:24)
[2016-10-27] MEDS: Levothyroxine 25mcg tab GT SCH (06:05)
[2016-10-27 07:14] LABS: ALANINE AMINOTRANSFERASE 130 U/L (3-41); ALBUMIN/GLOBULIN RATIO 0.4 (1.0-2.7); ANION GAP 15 (5-15); ASPARTATE AMINO TRANSFERASE 146 U/L (5-40); CALCIUM 7.9 mg/dL (8.6-10.2); CARBON DIOXIDE 21 mEQ/L (20-30); CHLORIDE 112 mEQ/L (98-107); HEMOLYSIS 10; MAGNESIUM 1.9 mg/dL (1.7-2.5); PHOSPHORUS 4.1 mg/dL (2.5-4.8); SODIUM 148 mEQ/L (135-145); TOTAL PROTEIN 5.7 g/dL (6.6-8.7)
[2016-10-27 07:57] LABS: CRP QUANT 12.8 mg/dL (< 0.5); URIC ACID 7.7 mg/dL (3.0-7.5)
[2016-10-27 08:25] LABS: TROPONIN I 4.86 ng/mL (<=0.30)
[2016-10-27] MEDS: Aspirin Baby 81mg NG SCH (08:50)
[2016-10-27] MEDS: Colistin for inhalation INH SCH ×2 (09:03→21:46)
--- NOTE | 2016-10-27 09:49 | General Progress Note ---
Assessment/Plan Status: unchanged Assessment/Plan Acute renal failure- MultiFactorial due to mainly septic shock (1) Acute and chronic respiratory failure (2) Septic shock (3) Feeding by G-tube (4) Hypoxemic encephalopathy (5) Severe anemia (6) SVT (supraventricular tachycardia) (7) High Troponin Plan: Aim to keep BP up, pressors and Midodrine Avoid nephrotoxics as possible- Monitor renal parameters Urine studies Subjective ROS Limited/Unobtainable: Yes Allergies: Coded Allergies: No Known Allergies (Unverified , 10/21/16) Objective Last 24 Hour Vital Signs Date Time Temp Pulse Resp B/P (MAP) Pulse Ox O2 Delivery O2 Flow Rate FiO2 10/27/16 09:10 80 20 95 Mechanical Ventilator 50 10/27/16 09:08 79 20 50 10/27/16 09:00 74 20 91/58 98 Mechanical Ventilator 50 10/27/16 08:00 74 10/27/16 08:00 50 10/27/16 08:00 73 20 87/54 99 Mechanical Ventilator 50 10/27/16 07:03 83 20 100 Mechanical Ventilator 50 10/27/16 07:01 77 20 50 10/27/16 07:00 81 20 91/61 99 Mechanical Ventilator 50 10/27/16 06:00 76 20 94/56 99 Mechanical Ventilator 50 10/27/16 05:00 92 20 99/43 97 Mechanical Ventilator 50 10/27/16 04:42 79 20 50 10/27/16 04:00 50 10/27/16 04:00 80 10/27/16 04:00 98.3 79 20 87/50 98 Mechanical Ventilator 50 10/27/16 03:30 80 20 50 10/27/16 03:00 80 20 88/54 99 Mechanical Ventilator 50 10/27/16 02:00 77 20 84/55 99 Mechanical Ventilator 50 10/27/16 01:11 80 20 50 10/27/16 01:00 79 20 83/52 99 Mechanical Ventilator 50 10/27/16 00:00 50 10/27/16 00:00 77 10/27/16 00:00 98.5 78 20 82/48 97 Mechanical Ventilator 50 10/26/16 23:30 79 20 50 10/26/16 23:00 79 20 94/61 99 Mechanical Ventilator 50 10/26/16 22:00 78 20 77/49 100 Mechanical Ventilator 50 10/26/16 21:30 80 20 50 10/26/16 21:00 78 20 83/53 99 Mechanical Ventilator 50 10/26/16 20:35 82/55 10/26/16 20:00 77 20 98 Mechanical Ventilator 50 10/26/16 20:00 50 10/26/16 20:00 82 20 100 Mechanical Ventilator 50 10/26/16 20:00 98.3 78 20 83/53 99 Mechanical Ventilator 50 10/26/16 20:00 82 10/26/16 19:30 75 20 50 10/26/16 19:00 76 16 90/57 100 Mechanical Ventilator 50 10/26/16 18:00 78 16 90/57 100 Mechanical Ventilator 50 10/26/16 17:04 74 20 50 10/26/16 17:00 76 16 87/52 100 Mechanical Ventilator 50 10/26/16 16:00 50 10/26/16 16:00 75 10/26/16 16:00 97.9 76 16 80/51 100 Mechanical Ventilator 50 10/26/16 15:00 76 16 95/59 100 Mechanical Ventilator 50 10/26/16 14:44 75 20 50 10/26/16 14:00 74 16 89/59 100 Mechanical Ventilator 50 10/26/16 12:35 73 20 50 10/26/16 12:00 97.8 74 16 94/57 100 Mechanical Ventilator 50 10/26/16 12:00 73 10/26/16 12:00 50 10/26/16 11:50 83 18 10/26/16 11:00 81 16 90/55 100 Mechanical Ventilator 50 10/26/16 10:41 81 16 50 10/26/16 10:01 86 16 100 Mechanical Ventilator 50 10/26/16 10:01 50 10/26/16 10:00 78 16 100/59 100 Mechanical Ventilator 50 Intake and Output 10/27/16 10/28/16 19:00 07:00 Intake Total 170 ml Output Total 410 ml Balance -240 ml Free Water 50 ml Tube Feeding 120 ml Output Urine Total 410 ml Laboratory Tests 10/26/16 11:23: Arterial Blood pH 7.272L, Arterial Blood Partial Pressure CO2 56.4*H, Arterial Blood Partial Pressure O2 86.3, Arterial Blood HCO3 25.4, Arterial Blood Oxygen Saturation 94.2, Arterial Blood Base Excess -1.8, Jones Test Positive 10/26/16 12:00: Troponin I 7.62*H 10/26/16 14:20: Urine Random Sodium 39 10/27/16 05:20: Troponin I 4.86*H, White Blood Count 13.0H, Red Blood Count 2.68L, Hemoglobin 8.3L, Hematocrit 24.7L, Mean Corpuscular Volume 92, Mean Corpuscular Hemoglobin 30.9, Mean Corpuscular Hemoglobin Concent 33.6, Red Cell Distribution Width 18.8H, Platelet Count 112#L, Mean Platelet Volume 8.1, Neutrophils (%) (Auto) 74.0, Lymphocytes (%) (Auto) 12.7L, Monocytes (%) (Auto) 9.3, Eosinophils (%) ( Auto) 3.8H, Basophils (%) (Auto) 0.2, Sodium Level 148H, Potassium Level 4.0, Chloride Level 112H, Carbon Dioxide Level 21, Anion Gap 15, Blood Urea Nitrogen 52H, Creatinine 2.0H, Estimat Glomerular Filtration Rate , Glucose Level 124H, Uric Acid 7.7H, Calcium Level 7.9L, Phosphorus Level 4.1, Magnesium Level 1.9, Total Bilirubin 0.6, Aspartate Amino Transf (AST/SGOT) 146H, Alanine Aminotransferase (ALT/SGPT) 130H, Alkaline Phosphatase 171H, Total Creatine Kinase 191H, C-Reactive Protein, Quantitative 12.8H, Pro-B-Type Natriuretic Peptide [id number], Total Protein 5.7L, Albumin 1.8L, Globulin 3.9, Albumin/ Globulin Ratio 0.4L Height (Feet): 5 Height (Inches): 10.00 Weight (Pounds): 172 General Appearance: no apparent distress Cardiovascular: normal rate Respiratory/Chest: decreased breath sounds Abdomen: distended YONNY LYONS Oct 27, 2016 09:49
--- NOTE | 2016-10-27 10:18 | Pulmonolgy Critical Care Note ---
Critical Care - Asmt/Plan Problems: (1) Acute and chronic respiratory failure (2) Septic shock (3) Feeding by G-tube (4) Hypoxemic encephalopathy (5) Severe anemia (6) SVT (supraventricular tachycardia) Respiratory: monitor respiratory rate Cardiac: continue to monitor HR/BP Renal: F/U I&O, check electrolytes Infectious Disease: check cultures, continue antibiotics Gastrointestinal: continue feedings/current rate Endocrine: monitor blood sugar, check TSH, continue sliding scale insulin Hematologic: monitor H/H, transfuse if hgb<8.5 Neurologic: PRN Ativan, keep patient comfortable Affect: PRN ativan Prophylaxis: Protonix Notes Reviewed: cardio, renal Discussed with: nurses, consultants, upper caseranalysis manager - Objective Last 24 Hour Vital Signs Date Time Temp Pulse Resp B/P (MAP) Pulse Ox O2 Delivery O2 Flow Rate FiO2 10/27/16 09:10 80 20 95 Mechanical Ventilator 50 10/27/16 09:08 79 20 50 10/27/16 09:00 74 20 91/58 98 Mechanical Ventilator 50 10/27/16 08:00 74 10/27/16 08:00 50 10/27/16 08:00 73 20 87/54 99 Mechanical Ventilator 50 10/27/16 07:03 83 20 100 Mechanical Ventilator 50 10/27/16 07:01 77 20 50 10/27/16 07:00 81 20 91/61 99 Mechanical Ventilator 50 10/27/16 06:00 76 20 94/56 99 Mechanical Ventilator 50 10/27/16 05:00 92 20 99/43 97 Mechanical Ventilator 50 10/27/16 04:42 79 20 50 10/27/16 04:00 50 10/27/16 04:00 80 10/27/16 04:00 98.3 79 20 87/50 98 Mechanical Ventilator 50 10/27/16 03:30 80 20 50 10/27/16 03:00 80 20 88/54 99 Mechanical Ventilator 50 10/27/16 02:00 77 20 84/55 99 Mechanical Ventilator 50 10/27/16 01:11 80 20 50 10/27/16 01:00 79 20 83/52 99 Mechanical Ventilator 50 10/27/16 00:00 50 10/27/16 00:00 77 10/27/16 00:00 98.5 78 20 82/48 97 Mechanical Ventilator 50 10/26/16 23:30 79 20 50 8/29/17 23:00 79 20 94/61 99 Mechanical Ventilator 50 10/26/16 22:00 78 20 77/49 100 Mechanical Ventilator 50 10/26/16 21:30 80 20 50 10/26/16 21:00 78 20 83/53 99 Mechanical Ventilator 50 10/26/16 20:35 82/55 10/26/16 20:00 77 20 98 Mechanical Ventilator 50 10/26/16 20:00 50 10/26/16 20:00 82 20 100 Mechanical Ventilator 50 10/26/16 20:00 98.3 78 20 83/53 99 Mechanical Ventilator 50 10/26/16 20:00 82 10/26/16 19:30 75 20 50 10/26/16 19:00 76 16 90/57 100 Mechanical Ventilator 50 10/26/16 18:00 78 16 90/57 100 Mechanical Ventilator 50 10/26/16 17:04 74 20 50 10/26/16 17:00 76 16 87/52 100 Mechanical Ventilator 50 10/26/16 16:00 50 10/26/16 16:00 75 10/26/16 16:00 97.9 76 16 80/51 100 Mechanical Ventilator 50 10/26/16 15:00 76 16 95/59 100 Mechanical Ventilator 50 10/26/16 14:44 75 20 50 10/26/16 14:00 74 16 89/59 100 Mechanical Ventilator 50 10/26/16 12:35 73 20 50 10/26/16 12:00 97.8 74 16 94/57 100 Mechanical Ventilator 50 10/26/16 12:00 73 10/26/16 12:00 50 10/26/16 11:50 83 18 10/26/16 11:00 81 16 90/55 100 Mechanical Ventilator 50 10/26/16 10:41 81 16 50 Status: awake Condition: critical HEENT: atraumatic, normocephalic Lungs: clear Heart: HR/BP stable, HR/BP unstable Abdomen: soft, active bowel sounds, feeding tube Extremities: no C/C/E, edema Critical Care - Subjective ICU Day: 5 Interval Events: late note for 10/26 more awake, looks comfortable FI02: 50 Vent Support Breath Rate: 20 Vent Support Mode: AC Vent Tidal Volume: 700 Sputum Amount: Small PEEP: 5.0 PIP: 40 Tube Feeding Amount: 60 I&O: Intake and Output 8/30/17 8/31/17 19:00 07:00 Intake Total 170 ml Output Total 410 ml Balance -240 ml Free Water 50 ml Tube Feeding 120 ml Output Urine Total 410 ml CXR: cxr is better, trach intact Labs: Laboratory Tests Test 10/26/16 11:23 10/26/16 12:00 10/26/16 14:20 10/27/16 05:20 Arterial Blood pH 7.272 (7.350-7.450) Arterial Blood Partial Pressure CO2 56.4 mmHg (35.0-45.0) *H Arterial Blood Partial Pressure O2 86.3 mmHg (75.0-100.0) Arterial Blood HCO3 25.4 mmol/L (22.0-26.0) Arterial Blood Oxygen Saturation 94.2 % (92.0-98.0) Arterial Blood Base Excess -1.8 Jones Test Positive Troponin I 7.62 ng/mL (<=0.30) *H 4.86 ng/mL (<=0.30) *H Urine Random Sodium 39 mmol/L White Blood Count 13.0 K/UL (4.8-10.8) H Red Blood Count 2.68 M/UL (4.70-6.10) L Hemoglobin 8.3 G/DL (14.2-18.0) L Hematocrit 24.7 % (42.0-52.0) L Mean Corpuscular Volume 92 FL (80-99) Mean Corpuscular Hemoglobin 30.9 PG (27.0-31.0) Mean Corpuscular Hemoglobin Concent 33.6 G/DL (32.0-36.0) Red Cell Distribution Width 18.8 % (11.6-14.8) H Platelet Count 112 K/UL (150-450) #L Mean Platelet Volume 8.1 FL (6.5-10.1) Neutrophils (%) (Auto) 74.0 % (45.0-75.0) Lymphocytes (%) (Auto) 12.7 % (20.0-45.0) L Monocytes (%) (Auto) 9.3 % (1.0-10.0) Eosinophils (%) (Auto) 3.8 % (0.0-3.0) H Basophils (%) (Auto) 0.2 % (0.0-2.0) Sodium Level 148 mEQ/L (135-145) H Potassium Level 4.0 mEQ/L (3.4-4.9) Chloride Level 112 mEQ/L (98-107) H Carbon Dioxide Level 21 mEQ/L (20-30) Anion Gap 15 (5-15) Blood Urea Nitrogen 52 mg/dL (7-23) H Creatinine 2.0 mg/dL (0.7-1.2) H Estimat Glomerular Filtration Rate mL/min (>60) Glucose Level 124 mg/dL (74-106) H Uric Acid 7.7 mg/dL (3.0-7.5) H Calcium Level 7.9 mg/dL (8.6-10.2) L Phosphorus Level 4.1 mg/dL (2.5-4.8) Magnesium Level 1.9 mg/dL (1.7-2.5) Total Bilirubin 0.6 mg/dL (0.0-1.2) Aspartate Amino Transf (AST/SGOT) 146 U/L (5-40) H Alanine Aminotransferase (ALT/SGPT) 130 U/L (3-41) H Alkaline Phosphatase 171 U/L (40-129) H Total Creatine Kinase 191 U/L (38-174) H C-Reactive Protein, Quantitative 12.8 mg/dL (< 0.5) H Pro-B-Type Natriuretic Peptide 98978 pg/mL (0-125) H Total Protein 5.7 g/dL (6.6-8.7) L Albumin 1.8 g/dL (3.5-5.2) L Globulin 3.9 g/dL Albumin/Globulin Ratio 0.4 (1.0-2.7) L RADHA SPANGLER Oct 27, 2016 10:18
--- NOTE | 2016-10-27 10:19 | Pulmonolgy Critical Care Note ---
Critical Care - Asmt/Plan Problems: (1) Acute and chronic respiratory failure (2) Septic shock (3) Feeding by G-tube (4) Hypoxemic encephalopathy (5) Severe anemia (6) SVT (supraventricular tachycardia) Respiratory: monitor respiratory rate, adjust FIO2, CXR Cardiac: continue to monitor HR/BP Renal: F/U I&O, keep IV fluid Infectious Disease: check cultures Gastrointestinal: continue feedings/current rate, hold feedings Endocrine: check HgA1C, continue sliding scale insulin Hematologic: monitor H/H, transfuse if hgb<8.5 Neurologic: PRN Ativan, keep patient comfortable Prophylaxis: Protonix, Heparin Disposition: keep in ICU Notes Reviewed: cardio, renal Discussed with: nurses, consultants, casework managermanager budget - Objective Last 24 Hour Vital Signs Date Time Temp Pulse Resp B/P (MAP) Pulse Ox O2 Delivery O2 Flow Rate FiO2 10/27/16 09:10 80 20 95 Mechanical Ventilator 50 10/27/16 09:08 79 20 50 10/27/16 09:00 74 20 91/58 98 Mechanical Ventilator 50 10/27/16 08:00 74 10/27/16 08:00 50 10/27/16 08:00 73 20 87/54 99 Mechanical Ventilator 50 10/27/16 07:03 83 20 100 Mechanical Ventilator 50 10/27/16 07:01 77 20 50 10/27/16 07:00 81 20 91/61 99 Mechanical Ventilator 50 10/27/16 06:00 76 20 94/56 99 Mechanical Ventilator 50 10/27/16 05:00 92 20 99/43 97 Mechanical Ventilator 50 10/27/16 04:42 79 20 50 10/27/16 04:00 50 10/27/16 04:00 80 10/27/16 04:00 98.3 79 20 87/50 98 Mechanical Ventilator 50 10/27/16 03:30 80 20 50 10/27/16 03:00 80 20 88/54 99 Mechanical Ventilator 50 10/27/16 02:00 77 20 84/55 99 Mechanical Ventilator 50 10/27/16 01:11 80 20 50 10/27/16 01:00 79 20 83/52 99 Mechanical Ventilator 50 10/27/16 00:00 50 10/27/16 00:00 77 10/27/16 00:00 98.5 78 20 82/48 97 Mechanical Ventilator 50 10/26/16 23:30 79 20 50 10/26/16 23:00 79 20 94/61 99 Mechanical Ventilator 50 10/26/16 22:00 78 20 77/49 100 Mechanical Ventilator 50 10/26/16 21:30 80 20 50 10/26/16 21:00 78 20 83/53 99 Mechanical Ventilator 50 10/26/16 20:35 82/55 10/26/16 20:00 77 20 98 Mechanical Ventilator 50 10/26/16 20:00 50 10/26/16 20:00 82 20 100 Mechanical Ventilator 50 10/26/16 20:00 98.3 78 20 83/53 99 Mechanical Ventilator 50 10/26/16 20:00 82 10/26/16 19:30 75 20 50 10/26/16 19:00 76 16 90/57 100 Mechanical Ventilator 50 10/26/16 18:00 78 16 90/57 100 Mechanical Ventilator 50 10/26/16 17:04 74 20 50 10/26/16 17:00 76 16 87/52 100 Mechanical Ventilator 50 10/26/16 16:00 50 10/26/16 16:00 75 10/26/16 16:00 97.9 76 16 80/51 100 Mechanical Ventilator 50 10/26/16 15:00 76 16 95/59 100 Mechanical Ventilator 50 10/26/16 14:44 75 20 50 10/26/16 14:00 74 16 89/59 100 Mechanical Ventilator 50 10/26/16 12:35 73 20 50 10/26/16 12:00 97.8 74 16 94/57 100 Mechanical Ventilator 50 10/26/16 12:00 73 10/26/16 12:00 50 10/26/16 11:50 83 18 10/26/16 11:00 81 16 90/55 100 Mechanical Ventilator 50 10/26/16 10:41 81 16 50 Status: awake Condition: critical HEENT: atraumatic Lungs: clear Heart: HR/BP stable, HR/BP unstable, regular Abdomen: non-tender, feeding tube Extremities: no C/C/E, edema Decubiti: location Critical Care - Subjective ROS Limited/Unobtainable: No ICU Day: 6 Intubation Day: 6 Condition: critical EKG Rhythm: Sinus Rhythm FI02: 50 Vent Support Breath Rate: 20 Vent Support Mode: AC Vent Tidal Volume: 700 Sputum Amount: Small PEEP: 5.0 PIP: 40 Tube Feeding Amount: 60 I&O: Intake and Output 10/27/16 10/28/16 19:00 07:00 Intake Total 170 ml Output Total 410 ml Balance -240 ml Free Water 50 ml Tube Feeding 120 ml Output Urine Total 410 ml CXR: improving Labs: Laboratory Tests Test 10/26/16 11:23 10/26/16 12:00 10/26/16 14:20 10/27/16 05:20 Arterial Blood pH 7.272 (7.350-7.450) Arterial Blood Partial Pressure CO2 56.4 mmHg (35.0-45.0) *H Arterial Blood Partial Pressure O2 86.3 mmHg (75.0-100.0) Arterial Blood HCO3 25.4 mmol/L (22.0-26.0) Arterial Blood Oxygen Saturation 94.2 % (92.0-98.0) Arterial Blood Base Excess -1.8 Jones Test Positive Troponin I 7.62 ng/mL (<=0.30) *H 4.86 ng/mL (<=0.30) *H Urine Random Sodium 39 mmol/L White Blood Count 13.0 K/UL (4.8-10.8) H Red Blood Count 2.68 M/UL (4.70-6.10) L Hemoglobin 8.3 G/DL (14.2-18.0) L Hematocrit 24.7 % (42.0-52.0) L Mean Corpuscular Volume 92 FL (80-99) Mean Corpuscular Hemoglobin 30.9 PG (27.0-31.0) Mean Corpuscular Hemoglobin Concent 33.6 G/DL (32.0-36.0) Red Cell Distribution Width 18.8 % (11.6-14.8) H Platelet Count 112 K/UL (150-450) #L Mean Platelet Volume 8.1 FL (6.5-10.1) Neutrophils (%) (Auto) 74.0 % (45.0-75.0) Lymphocytes (%) (Auto) 12.7 % (20.0-45.0) L Monocytes (%) (Auto) 9.3 % (1.0-10.0) Eosinophils (%) (Auto) 3.8 % (0.0-3.0) H Basophils (%) (Auto) 0.2 % (0.0-2.0) Sodium Level 148 mEQ/L (135-145) H Potassium Level 4.0 mEQ/L (3.4-4.9) Chloride Level 112 mEQ/L (98-107) H Carbon Dioxide Level 21 mEQ/L (20-30) Anion Gap 15 (5-15) Blood Urea Nitrogen 52 mg/dL (7-23) H Creatinine 2.0 mg/dL (0.7-1.2) H Estimat Glomerular Filtration Rate mL/min (>60) Glucose Level 124 mg/dL (74-106) H Uric Acid 7.7 mg/dL (3.0-7.5) H Calcium Level 7.9 mg/dL (8.6-10.2) L Phosphorus Level 4.1 mg/dL (2.5-4.8) Magnesium Level 1.9 mg/dL (1.7-2.5) Total Bilirubin 0.6 mg/dL (0.0-1.2) Aspartate Amino Transf (AST/SGOT) 146 U/L (5-40) H Alanine Aminotransferase (ALT/SGPT) 130 U/L (3-41) H Alkaline Phosphatase 171 U/L (40-129) H Total Creatine Kinase 191 U/L (38-174) H C-Reactive Protein, Quantitative 12.8 mg/dL (< 0.5) H Pro-B-Type Natriuretic Peptide 73614 pg/mL (0-125) H Total Protein 5.7 g/dL (6.6-8.7) L Albumin 1.8 g/dL (3.5-5.2) L Globulin 3.9 g/dL Albumin/Globulin Ratio 0.4 (1.0-2.7) L RADHA SPANGLER Oct 27, 2016 10:18
--- NOTE | 2016-10-27 11:18 | Diagnostic Imaging Report ---
Indication: Dyspnea Comparison: 10/26/16 A single view chest radiograph was obtained. Findings: Patchy airspace opacities bilaterally unchanged. Heart size is unchanged. Right jugular line was removed. Tracheostomy again noted. Impression: No pattern changer the last day
[2016-10-27 12:07] LABS: ABG ALLEN TEST POSITIVE; ABG BASE EXCESS -0.6; ABG PCO2 37.7 mmHg (35.0-45.0)
[2016-10-27] MEDS: Midodrine 10mg tab GT SCH ×2 (12:23→17:40)
[2016-10-27] MEDS ORDERED: NS 275ml ONE (13:59)
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
--- NOTE | 2016-10-27 18:08 | Infectious Diseases Prog Note ---
Assessment/Plan Assessment/Plan ASSESSMENT: Multilobar pneumonia --severe sepsis, improving , TTE demonstrates significant systolic dysfunction with dilated IVC arguing against hypovolemic shock. Treating as multilobar pneumonia --severe hypothermia s/p GABE hugger, resolved -- leukocytosis --multilobar pneumonia with superimposed pulmonary edema sputum growing PSA and KPC -- CoNS in blood, one of 4 bottles contaminant --thrombocytopenia, improving --shock liver: transaminitis improving acute viral hepatitis panel negative --probable h/o chronic liver disease --h/o depakote for mood d/o --U/A negative for UTI --elevated TSH --hypoalbuminemia --VRE colonized -- VIANCA ( ? 2nd to Amikacin ) PLAN: -- cont IV Merrem, Colistin INH, d# 3 / , add Cefepime d# 2 / , ( 09/25 SP Amikicain d# 6 ) -- ( 09/24 SP IV vanc, and ertapenem D# 5 ) --f/u blood cx s --aspiration precautions, vent care, trach care --skin care --contact isolation per hospital policy Subjective Allergies: Coded Allergies: No Known Allergies (Unverified , 10/21/16) Subjective on vent Objective Vital Signs Last 24 Hour Vital Signs Date Time Temp Pulse Resp B/P (MAP) Pulse Ox O2 Delivery O2 Flow Rate FiO2 10/27/16 17:00 70 20 88/57 99 Mechanical Ventilator 50 10/27/16 16:54 75 26 50 10/27/16 16:00 50 10/27/16 16:00 98.2 69 20 89/58 99 Mechanical Ventilator 50 10/27/16 16:00 69 10/27/16 15:28 74 20 50 10/27/16 15:00 72 20 88/58 99 Mechanical Ventilator 50 10/27/16 14:00 72 20 90/60 99 Mechanical Ventilator 50 10/27/16 13:28 77 22 50 10/27/16 13:00 73 20 94/55 100 Mechanical Ventilator 50 10/27/16 12:00 79 10/27/16 12:00 98.1 78 20 88/59 100 Mechanical Ventilator 50 10/27/16 12:00 50 10/27/16 11:21 78 20 50 10/27/16 11:00 98.2 78 20 83/55 99 Mechanical Ventilator 50 10/27/16 10:00 76 20 82/56 99 Mechanical Ventilator 50 10/27/16 09:10 80 20 95 Mechanical Ventilator 50 10/27/16 09:08 79 20 50 10/27/16 09:00 74 20 91/58 98 Mechanical Ventilator 50 10/27/16 08:00 74 10/27/16 08:00 50 10/27/16 08:00 73 20 87/54 99 Mechanical Ventilator 50 10/27/16 07:03 83 20 100 Mechanical Ventilator 50 10/27/16 07:01 77 20 50 10/27/16 07:00 81 20 91/61 99 Mechanical Ventilator 50 10/27/16 06:00 76 20 94/56 99 Mechanical Ventilator 50 10/27/16 05:00 92 20 99/43 97 Mechanical Ventilator 50 10/27/16 04:42 79 20 50 10/27/16 04:00 50 10/27/16 04:00 80 10/27/16 04:00 98.3 79 20 87/50 98 Mechanical Ventilator 50 10/27/16 03:30 80 20 50 10/27/16 03:00 80 20 88/54 99 Mechanical Ventilator 50 10/27/16 02:00 77 20 84/55 99 Mechanical Ventilator 50 10/27/16 01:11 80 20 50 10/27/16 01:00 79 20 83/52 99 Mechanical Ventilator 50 10/27/16 00:00 50 10/27/16 00:00 77 10/27/16 00:00 98.5 78 20 82/48 97 Mechanical Ventilator 50 10/26/16 23:30 79 20 50 10/26/16 23:00 79 20 94/61 99 Mechanical Ventilator 50 10/26/16 22:00 78 20 77/49 100 Mechanical Ventilator 50 10/26/16 21:30 80 20 50 10/26/16 21:00 78 20 83/53 99 Mechanical Ventilator 50 10/26/16 20:35 82/55 10/26/16 20:00 77 20 98 Mechanical Ventilator 50 10/26/16 20:00 50 10/26/16 20:00 82 20 100 Mechanical Ventilator 50 10/26/16 20:00 98.3 78 20 83/53 99 Mechanical Ventilator 50 10/26/16 20:00 82 10/26/16 19:30 75 20 50 10/26/16 19:00 76 16 90/57 100 Mechanical Ventilator 50 Height (Feet): 5 Height (Inches): 10.00 Weight (Pounds): 172 HEENT: anicteric Respiratory/Chest: no respiratory distress Cardiovascular: normal peripheral pulses Abdomen: soft, non tender Laboratory Tests Test 10/27/16 05:20 10/27/16 12:00 White Blood Count 13.0 K/UL (4.8-10.8) H Red Blood Count 2.68 M/UL (4.70-6.10) L Hemoglobin 8.3 G/DL (14.2-18.0) L Hematocrit 24.7 % (42.0-52.0) L Mean Corpuscular Volume 92 FL (80-99) Mean Corpuscular Hemoglobin 30.9 PG (27.0-31.0) Mean Corpuscular Hemoglobin Concent 33.6 G/DL (32.0-36.0) Red Cell Distribution Width 18.8 % (11.6-14.8) H Platelet Count 112 K/UL (150-450) #L Mean Platelet Volume 8.1 FL (6.5-10.1) Neutrophils (%) (Auto) 74.0 % (45.0-75.0) Lymphocytes (%) (Auto) 12.7 % (20.0-45.0) L Monocytes (%) (Auto) 9.3 % (1.0-10.0) Eosinophils (%) (Auto) 3.8 % (0.0-3.0) H Basophils (%) (Auto) 0.2 % (0.0-2.0) Sodium Level 148 mEQ/L (135-145) H Potassium Level 4.0 mEQ/L (3.4-4.9) Chloride Level 112 mEQ/L (98-107) H Carbon Dioxide Level 21 mEQ/L (20-30) Anion Gap 15 (5-15) Blood Urea Nitrogen 52 mg/dL (7-23) H Creatinine 2.0 mg/dL (0.7-1.2) H Estimat Glomerular Filtration Rate mL/min (>60) Glucose Level 124 mg/dL (74-106) H Uric Acid 7.7 mg/dL (3.0-7.5) H Calcium Level 7.9 mg/dL (8.6-10.2) L Phosphorus Level 4.1 mg/dL (2.5-4.8) Magnesium Level 1.9 mg/dL (1.7-2.5) Total Bilirubin 0.6 mg/dL (0.0-1.2) Aspartate Amino Transf (AST/SGOT) 146 U/L (5-40) H Alanine Aminotransferase (ALT/SGPT) 130 U/L (3-41) H Alkaline Phosphatase 171 U/L (40-129) H Total Creatine Kinase 191 U/L (38-174) H Troponin I 4.86 ng/mL (<=0.30) *H C-Reactive Protein, Quantitative 12.8 mg/dL (< 0.5) H Pro-B-Type Natriuretic Peptide 66796 pg/mL (0-125) H Total Protein 5.7 g/dL (6.6-8.7) L Albumin 1.8 g/dL (3.5-5.2) L Globulin 3.9 g/dL Albumin/Globulin Ratio 0.4 (1.0-2.7) L Cortisol AM Sample Pending Arterial Blood pH 7.418 (7.350-7.450) Arterial Blood Partial Pressure CO2 37.7 mmHg (35.0-45.0) Arterial Blood Partial Pressure O2 71.0 mmHg (75.0-100.0) L Arterial Blood HCO3 23.8 mmol/L (22.0-26.0) Arterial Blood Oxygen Saturation 93.5 % (92.0-98.0) Arterial Blood Base Excess -0.6 Jones Test Positive Current Medications Medications (Trade) Dose Ordered Sig/Estelle Route PRN Reason Start Time Stop Time Status Last Admin Dose Admin Acetaminophen (Tylenol) 650 mg Q4H PRN ORAL fever 10/21/16 13:45 11/20/16 13:44 10/25/16 11:37 Aspirin (ASA) 81 mg DAILY NG 10/26/16 09:00 11/25/16 08:59 10/27/16 08:50 Atorvastatin Calcium (Lipitor) 40 mg BEDTIME ORAL 10/26/16 21:00 11/25/16 20:59 10/26/16 20:27 Cefepime HCl 2 gm/ Dextrose 110 ml @ 220 mls/hr Q24H IVPB 10/26/16 23:00 11/02/16 22:59 10/26/16 22:54 Colistimethate Sodium (Colistin *inhalation use only*) 150 mg Q12HR INH 10/25/16 21:00 11/01/16 20:59 10/27/16 09:03 Diltiazem HCl (Cardizem) 10 mg EVERY HOUR PRN IV UNTIL HR 120 10/24/16 19:15 11/23/16 19:14 10/24/16 20:24 Lansoprazole (Prevacid) 30 mg Q12HR GT 10/22/16 22:00 11/21/16 21:59 10/27/16 08:50 Levothyroxine Sodium (Synthroid) 25 mcg DAILY@0630 GT 10/26/16 06:30 11/24/16 06:29 10/27/16 06:05 Lorazepam (Ativan 2mg/ml 1ml) 2 mg Q2H PRN IV For Anxiety 10/21/16 13:45 10/28/16 13:44 Meropenem 2 gm/ Sodium Chloride 110 ml @ 220 mls/hr Q12HR@0600,1800 IVPB 10/25/16 18:00 10/30/16 17:59 10/27/16 06:05 Midodrine (Pro-Amatine) 10 mg THREE TIMES A DAY GT 10/27/16 13:00 11/26/16 12:59 10/27/16 17:40 Morphine Sulfate (Morphine Sulfate) 4 mg Q4H PRN IVP Severe Pain (Pain Scale 7-10) 10/21/16 13:45 10/28/16 13:44 Norepinephrine Bitartrate 8 mg/ Dextrose 508 ml @ 0 mls/hr Q24H IV 10/21/16 20:35 11/20/16 20:34 10/24/16 21:02 Ondansetron HCl (Zofran) 4 mg Q6H PRN IVP Nausea & Vomiting 10/21/16 13:45 11/20/16 13:44 Polyethylene Glycol (Miralax) 17 gm DAILYPRN PRN GT Constipation 10/25/16 11:15 11/20/16 13:44 NATANAEL GARLAND M.D. Oct 27, 2016 18:08
--- NOTE | 2016-10-27 18:45 | Cardiology Progress Note ---
Assessment/Plan Assessment/Plan 1. Ischemic cardiomyopathy. 2. Anoxic encephalopathy. 3. Hypotension. 4. Septic shock. 5. Thrombocytopenia. 6. Differential tachycardia with aberrancy. 7. Hypernatremia. 8. Pulmonary hypertension. 9. Anemia. 10. Systolic heart failure, acute on chronic. 11. Abnormal liver function test. 12. Hypothyroidism. 13. NSTEMI 14. componenet of cardiogenic shock i was called on several occasion during eh early hours to day with hypotension small boluses of ivf wre give with out improvement orders for levophed were cancelled as no central lien and reportedly had "svt when levophed was started the nite before ", however i t appear the svt did not occur with onset of levophed rather occured while he had been on levophed for 3- 4 days!! no cy oir bb at this time cannot use dobutamine in light of elevated trop ekg reviewed no st t wave abn prior echo report reviewed not a candidate for any invasive rxn once bp improves bb and then acei ecotrin started statin started vent support off ivf if needed restart on norepinephrine abx d/w staff on several occasion started on midodrine tle reviwed persoanlly no svt since 10/24! wioll be toelrant of sbp greater than 85 mmhg in light of poor lv fucntion trop is trendign down and ekg personally reviwed unchanged remains critically ill at risk of dying Subjective ROS Limited/Unobtainable: Yes Objective Last 24 Hour Vital Signs Date Time Temp Pulse Resp B/P (MAP) Pulse Ox O2 Delivery O2 Flow Rate FiO2 10/27/16 17:00 70 20 88/57 99 Mechanical Ventilator 50 10/27/16 16:54 75 26 50 10/27/16 16:00 50 10/27/16 16:00 98.2 69 20 89/58 99 Mechanical Ventilator 50 10/27/16 16:00 69 10/27/16 15:28 74 20 50 10/27/16 15:00 72 20 88/58 99 Mechanical Ventilator 50 10/27/16 14:00 72 20 90/60 99 Mechanical Ventilator 50 10/27/16 13:28 77 22 50 10/27/16 13:00 73 20 94/55 100 Mechanical Ventilator 50 10/27/16 12:00 79 10/27/16 12:00 98.1 78 20 88/59 100 Mechanical Ventilator 50 10/27/16 12:00 50 10/27/16 11:21 78 20 50 10/27/16 11:00 98.2 78 20 83/55 99 Mechanical Ventilator 50 10/27/16 10:00 76 20 82/56 99 Mechanical Ventilator 50 10/27/16 09:10 80 20 95 Mechanical Ventilator 50 10/27/16 09:08 79 20 50 10/27/16 09:00 74 20 91/58 98 Mechanical Ventilator 50 10/27/16 08:00 74 10/27/16 08:00 50 10/27/16 08:00 73 20 87/54 99 Mechanical Ventilator 50 10/27/16 07:03 83 20 100 Mechanical Ventilator 50 10/27/16 07:01 77 20 50 10/27/16 07:00 81 20 91/61 99 Mechanical Ventilator 50 10/27/16 06:00 76 20 94/56 99 Mechanical Ventilator 50 10/27/16 05:00 92 20 99/43 97 Mechanical Ventilator 50 10/27/16 04:42 79 20 50 10/27/16 04:00 50 10/27/16 04:00 80 10/27/16 04:00 98.3 79 20 87/50 98 Mechanical Ventilator 50 10/27/16 03:30 80 20 50 10/27/16 03:00 80 20 88/54 99 Mechanical Ventilator 50 10/27/16 02:00 77 20 84/55 99 Mechanical Ventilator 50 10/27/16 01:11 80 20 50 10/27/16 01:00 79 20 83/52 99 Mechanical Ventilator 50 10/27/16 00:00 50 10/27/16 00:00 77 10/27/16 00:00 98.5 78 20 82/48 97 Mechanical Ventilator 50 10/26/16 23:30 79 20 50 10/26/16 23:00 79 20 94/61 99 Mechanical Ventilator 50 10/26/16 22:00 78 20 77/49 100 Mechanical Ventilator 50 10/26/16 21:30 80 20 50 10/26/16 21:00 78 20 83/53 99 Mechanical Ventilator 50 10/26/16 20:35 82/55 10/26/16 20:00 77 20 98 Mechanical Ventilator 50 10/26/16 20:00 50 10/26/16 20:00 82 20 100 Mechanical Ventilator 50 10/26/16 20:00 98.3 78 20 83/53 99 Mechanical Ventilator 50 10/26/16 20:00 82 10/26/16 19:30 75 20 50 10/26/16 19:00 76 16 90/57 100 Mechanical Ventilator 50 General Appearance: no apparent distress, alert, on vent Neck: supple Cardiovascular: normal rate, regular rhythm Respiratory/Chest: rhonchi - bilaterally Abdomen: normal bowel sounds, non tender, soft Extremities: trace edema Intake and Output 10/27/16 10/28/16 19:00 07:00 Intake Total 750 ml Output Total 1005 ml Balance -255 ml Free Water 100 ml Tube Feeding 600 ml Other 50 ml Output Urine Total 1005 ml # Bowel Movements 1 Laboratory Tests Test 10/27/16 05:20 10/27/16 12:00 White Blood Count 13.0 K/UL (4.8-10.8) H Red Blood Count 2.68 M/UL (4.70-6.10) L Hemoglobin 8.3 G/DL (14.2-18.0) L Hematocrit 24.7 % (42.0-52.0) L Mean Corpuscular Volume 92 FL (80-99) Mean Corpuscular Hemoglobin 30.9 PG (27.0-31.0) Mean Corpuscular Hemoglobin Concent 33.6 G/DL (32.0-36.0) Red Cell Distribution Width 18.8 % (11.6-14.8) H Platelet Count 112 K/UL (150-450) #L Mean Platelet Volume 8.1 FL (6.5-10.1) Neutrophils (%) (Auto) 74.0 % (45.0-75.0) Lymphocytes (%) (Auto) 12.7 % (20.0-45.0) L Monocytes (%) (Auto) 9.3 % (1.0-10.0) Eosinophils (%) (Auto) 3.8 % (0.0-3.0) H Basophils (%) (Auto) 0.2 % (0.0-2.0) Sodium Level 148 mEQ/L (135-145) H Potassium Level 4.0 mEQ/L (3.4-4.9) Chloride Level 112 mEQ/L (98-107) H Carbon Dioxide Level 21 mEQ/L (20-30) Anion Gap 15 (5-15) Blood Urea Nitrogen 52 mg/dL (7-23) H Creatinine 2.0 mg/dL (0.7-1.2) H Estimat Glomerular Filtration Rate mL/min (>60) Glucose Level 124 mg/dL (74-106) H Uric Acid 7.7 mg/dL (3.0-7.5) H Calcium Level 7.9 mg/dL (8.6-10.2) L Phosphorus Level 4.1 mg/dL (2.5-4.8) Magnesium Level 1.9 mg/dL (1.7-2.5) Total Bilirubin 0.6 mg/dL (0.0-1.2) Aspartate Amino Transf (AST/SGOT) 146 U/L (5-40) H Alanine Aminotransferase (ALT/SGPT) 130 U/L (3-41) H Alkaline Phosphatase 171 U/L (40-129) H Total Creatine Kinase 191 U/L (38-174) H Troponin I 4.86 ng/mL (<=0.30) *H C-Reactive Protein, Quantitative 12.8 mg/dL (< 0.5) H Pro-B-Type Natriuretic Peptide 36004 pg/mL (0-125) H Total Protein 5.7 g/dL (6.6-8.7) L Albumin 1.8 g/dL (3.5-5.2) L Globulin 3.9 g/dL Albumin/Globulin Ratio 0.4 (1.0-2.7) L Cortisol AM Sample Pending Arterial Blood pH 7.418 (7.350-7.450) Arterial Blood Partial Pressure CO2 37.7 mmHg (35.0-45.0) Arterial Blood Partial Pressure O2 71.0 mmHg (75.0-100.0) L Arterial Blood HCO3 23.8 mmol/L (22.0-26.0) Arterial Blood Oxygen Saturation 93.5 % (92.0-98.0) Arterial Blood Base Excess -0.6 Jones Test Positive VERA AUGUSTINE Oct 27, 2016 18:45
[2016-10-27] MEDS: Cefepime HCl 2 GM in D5W 110 ML IVPB SCH (22:41)
[2016-10-28] VITALS (9 sets, daily range): BP systolic 82–96; BP diastolic 49–63
[2016-10-28] MEDS ORDERED: LORazepam Inj 2mg/ml 1ml IV PRN (03:45)
[2016-10-28] MEDS ORDERED: Diltiazem 25mg/5ml IV PRN (04:00)
[2016-10-28] MEDS: Meropenem 2 GM in NS 110 ML IVPB SCH ×3 (05:25→17:13)
[2016-10-28 05:30] LABS: CRP QUANT 9.9 mg/dL (< 0.5); MAGNESIUM 2.2 mg/dL (1.7-2.5); PHOSPHORUS 4.2 mg/dL (2.5-4.8); URIC ACID 7.5 mg/dL (3.0-7.5)
[2016-10-28 05:31] LABS: MEAN CORPUSCULAR HGB CONC 32.9 G/DL (32.0-36.0); MEAN CORPUSCULAR VOLUME 91 FL (80-99); MEAN PLATELET VOLUME 8.5 FL (6.5-10.1); PLATELET COUNT 195 K/UL (150-450); RED BLOOD COUNT 2.57 M/UL (4.70-6.10); RED CELL DISTRIBUTION WIDTH 18.7 % (11.6-14.8); WHITE BLOOD COUNT 10.8 K/UL (4.8-10.8)
[2016-10-28 05:38] LABS: ALANINE AMINOTRANSFERASE 90 U/L (3-41); ALBUMIN/GLOBULIN RATIO 0.3 (1.0-2.7); ANION GAP 12 (5-15); ASPARTATE AMINO TRANSFERASE 93 U/L (5-40); CALCIUM 8.3 mg/dL (8.6-10.2); CARBON DIOXIDE 22 mEQ/L (20-30); CHLORIDE 114 mEQ/L (98-107); HEMOLYSIS 0; POTASSIUM 3.9 mEQ/L (3.4-4.9); SODIUM 148 mEQ/L (135-145); TOTAL PROTEIN 6.5 g/dL (6.6-8.7)
[2016-10-28] MEDS ORDERED: Morphine Sulfate 4mg/ml Inj IVP PRN (05:45)
[2016-10-28] MEDS ORDERED: Levothyroxine 25mcg tab GT SCH (06:30)
[2016-10-28] MEDS: Midodrine 10mg tab GT SCH ×3 (08:58→17:13)
[2016-10-28] MEDS ORDERED: Aspirin Baby 81mg NG SCH (09:00)
[2016-10-28] MEDS: Colistin for inhalation INH SCH (10:18)
--- NOTE | 2016-10-28 10:37 | Pulmonology Progress Note ---
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, 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 Discussed with: nurses, consultants, classification case manager Subjective ROS Limited/Unobtainable: No Constitutional: Reports: no symptoms HEENT: Repors: no symptoms Respiratory: Reports: no symptoms Allergies: Coded Allergies: No Known Allergies (Unverified , 10/21/16) Objective Last 24 Hour Vital Signs Date Time Temp Pulse Resp B/P (MAP) Pulse Ox O2 Delivery O2 Flow Rate FiO2 10/28/16 10:24 71 16 100 Mechanical Ventilator 40 10/28/16 10:19 73 18 98 Mechanical Ventilator 40 10/28/16 09:05 78 20 40 10/28/16 08:00 70 10/28/16 08:00 40 10/28/16 08:00 98.1 69 20 83/49 96 Mechanical Ventilator 40 10/28/16 07:12 74 20 40 10/28/16 05:01 70 20 40 10/28/16 04:00 40 10/28/16 04:00 78 10/28/16 03:19 74 20 40 10/28/16 03:00 71 20 87/56 99 Mechanical Ventilator 50 10/28/16 02:00 72 20 85/50 98 Mechanical Ventilator 50 10/28/16 01:13 72 20 40 10/28/16 01:00 81 20 82/50 98 Mechanical Ventilator 50 10/28/16 00:00 70 20 89/58 100 Mechanical Ventilator 50 10/28/16 00:00 71 10/27/16 23:00 98.1 77 20 95/59 100 Mechanical Ventilator 50 10/27/16 22:28 69 20 50 10/27/16 22:00 70 20 95/59 100 Mechanical Ventilator 50 10/27/16 21:55 69 20 99 Mechanical Ventilator 50 10/27/16 21:45 70 20 98 Mechanical Ventilator 50 10/27/16 21:29 70 20 50 10/27/16 21:00 72 20 90/56 98 Mechanical Ventilator 50 10/27/16 20:20 88/58 10/27/16 20:00 98.3 72 20 88/58 100 Mechanical Ventilator 50 10/27/16 20:00 50 10/27/16 20:00 72 10/27/16 19:04 73 20 50 10/27/16 19:00 74 20 91/68 98 Mechanical Ventilator 50 10/27/16 18:00 72 20 97/59 98 Mechanical Ventilator 50 10/27/16 17:00 70 20 88/57 99 Mechanical Ventilator 50 10/27/16 16:54 75 26 50 10/27/16 16:00 50 10/27/16 16:00 98.2 69 20 89/58 99 Mechanical Ventilator 50 10/27/16 16:00 69 10/27/16 15:28 74 20 50 10/27/16 15:00 72 20 88/58 99 Mechanical Ventilator 50 10/27/16 14:00 72 20 90/60 99 Mechanical Ventilator 50 10/27/16 13:28 77 22 50 10/27/16 13:00 73 20 94/55 100 Mechanical Ventilator 50 10/27/16 12:00 79 10/27/16 12:00 98.1 78 20 88/59 100 Mechanical Ventilator 50 10/27/16 12:00 50 10/27/16 11:21 78 20 50 10/27/16 11:00 98.2 78 20 83/55 99 Mechanical Ventilator 50 General Appearance: WD/WN HEENT: normocephalic, anicteric Respiratory/Chest: chest wall non-tender, lungs clear Cardiovascular: normal peripheral pulses, normal rate Abdomen: normal bowel sounds, soft, non tender Extremities: no cyanosis, no clubbing Skin: no ulcers Neurologic/Psychiatric: facilities project manager II-XII grossly normal, no motor/sensory deficits Laboratory Tests 10/27/16 12:00: Arterial Blood pH 7.418, Arterial Blood Partial Pressure CO2 37.7, Arterial Blood Partial Pressure O2 71.0L, Arterial Blood HCO3 23.8, Arterial Blood Oxygen Saturation 93.5, Arterial Blood Base Excess -0.6, Jones Test Positive 10/28/16 04:20: White Blood Count 10.8, Red Blood Count 2.57L, Hemoglobin 7.7L, Hematocrit 23.4L , Mean Corpuscular Volume 91, Mean Corpuscular Hemoglobin 30.0, Mean Corpuscular Hemoglobin Concent 32.9, Red Cell Distribution Width 18.7H, Platelet Count 195#, Mean Platelet Volume 8.5, Neutrophils (%) (Auto) , Lymphocytes (%) (Auto) , Monocytes (%) (Auto) , Eosinophils (%) (Auto) , Basophils (%) (Auto) , Sodium Level 148H, Potassium Level 3.9, Chloride Level 114H, Carbon Dioxide Level 22, Anion Gap 12, Blood Urea Nitrogen 55H, Creatinine 2.0H, Estimat Glomerular Filtration Rate , Glucose Level 108H, Uric Acid 7.5, Calcium Level 8.3L, Phosphorus Level 4.2, Magnesium Level 2.2, Total Bilirubin 0.6, Aspartate Amino Transf (AST/SGOT) 93H, Alanine Aminotransferase ( ALT/SGPT) 90H, Alkaline Phosphatase 140H, C-Reactive Protein, Quantitative 9.9H , Pro-B-Type Natriuretic Peptide 92238M, Total Protein 6.5L, Albumin 1.5L, Globulin 5.0, Albumin/Globulin Ratio 0.3L Current Medications Medications (Trade) Dose Ordered Sig/Estelle Route PRN Reason Start Time Stop Time Status Last Admin Dose Admin Acetaminophen (Tylenol) 650 mg Q4H PRN ORAL fever 10/28/16 05:45 11/20/16 13:44 Aspirin (ASA) 81 mg DAILY NG 10/28/16 09:00 11/25/16 08:59 10/28/16 08:58 Atorvastatin Calcium (Lipitor) 40 mg BEDTIME ORAL 10/28/16 21:00 11/25/16 20:59 Cefepime HCl 2 gm/ Dextrose 110 ml @ 220 mls/hr Q24H IVPB 10/28/16 23:00 11/02/16 22:59 Colistimethate Sodium (Colistin *inhalation use only*) 150 mg Q12HR INH 10/28/16 09:00 11/01/16 20:59 10/28/16 10:18 Diltiazem HCl (Cardizem) 10 mg EVERY HOUR PRN IV UNTIL HR 120 10/28/16 04:00 11/23/16 19:14 Lansoprazole (Prevacid) 30 mg Q12HR GT 10/28/16 09:00 11/21/16 21:59 10/28/16 08:58 Levothyroxine Sodium (Synthroid) 25 mcg DAILY@0630 GT 10/28/16 06:30 11/24/16 06:29 10/28/16 05:26 Lorazepam (Ativan 2mg/ml 1ml) 2 mg Q2H PRN IV For Anxiety 10/28/16 03:45 10/28/16 13:44 Meropenem 2 gm/ Sodium Chloride 110 ml @ 220 mls/hr Q12HR@0600,1800 IVPB 10/28/16 06:00 10/30/16 17:59 10/28/16 05:25 Midodrine (Pro-Amatine) 10 mg THREE TIMES A DAY GT 10/28/16 09:00 11/26/16 12:59 10/28/16 08:58 Morphine Sulfate (Morphine Sulfate) 4 mg Q4H PRN IVP Severe Pain (Pain Scale 7-10) 10/28/16 05:45 10/28/16 13:44 Ondansetron HCl (Zofran) 4 mg Q6H PRN IVP Nausea & Vomiting 10/28/16 07:45 11/20/16 13:44 Polyethylene Glycol (Miralax) 17 gm DAILYPRN PRN GT Constipation 10/28/16 11:15 11/20/16 13:44 RADHA SPANGLER Oct 28, 2016 10:37
[2016-10-28] MEDS ORDERED: Miralax 17gm pkt GT PRN (11:15)
--- NOTE | 2016-10-28 11:24 | Diagnostic Imaging Report ---
Indication: Dyspnea Comparison: 10/27/16 A single view chest radiograph was obtained. Findings: Extensive infiltrates again noted bilaterally unchanged. Heart is enlarged but stable. Tracheostomy again noted. Impression: No roll changer the last 24 hours
--- NOTE | 2016-10-28 13:41 | General Progress Note ---
Assessment/Plan Status: unchanged Status Narrative Cr leveling at 2 Assessment/Plan Acute renal failure- MultiFactorial due to mainly septic shock (1) Acute and chronic respiratory failure (2) Septic shock (3) Feeding by G-tube (4) Hypoxemic encephalopathy (5) Severe anemia (6) SVT (supraventricular tachycardia) (7) High Troponin Plan: Aim to keep BP up, pressors and Midodrine Avoid nephrotoxics as possible- Monitor renal parameters Urine studies Subjective ROS Limited/Unobtainable: Yes Allergies: Coded Allergies: No Known Allergies (Unverified , 10/21/16) Objective Last 24 Hour Vital Signs Date Time Temp Pulse Resp B/P (MAP) Pulse Ox O2 Delivery O2 Flow Rate FiO2 10/28/16 12:59 67 20 40 10/28/16 12:00 68 10/28/16 12:00 98.0 71 20 88/54 97 Mechanical Ventilator 40 10/28/16 12:00 40 10/28/16 10:45 71 18 40 10/28/16 10:24 71 16 100 Mechanical Ventilator 40 10/28/16 10:19 73 18 98 Mechanical Ventilator 40 10/28/16 09:05 78 20 40 10/28/16 08:00 70 10/28/16 08:00 40 10/28/16 08:00 98.1 69 20 83/49 96 Mechanical Ventilator 40 10/28/16 07:12 74 20 40 10/28/16 05:01 70 20 40 10/28/16 04:00 40 10/28/16 04:00 78 10/28/16 03:19 74 20 40 10/28/16 03:00 71 20 87/56 99 Mechanical Ventilator 50 10/28/16 02:00 72 20 85/50 98 Mechanical Ventilator 50 10/28/16 01:13 72 20 40 10/28/16 01:00 81 20 82/50 98 Mechanical Ventilator 50 10/28/16 00:00 70 20 89/58 100 Mechanical Ventilator 50 10/28/16 00:00 71 10/27/16 23:00 98.1 77 20 95/59 100 Mechanical Ventilator 50 10/27/16 22:28 69 20 50 10/27/16 22:00 70 20 95/59 100 Mechanical Ventilator 50 10/27/16 21:55 69 20 99 Mechanical Ventilator 50 10/27/16 21:45 70 20 98 Mechanical Ventilator 50 10/27/16 21:29 70 20 50 10/27/16 21:00 72 20 90/56 98 Mechanical Ventilator 50 10/27/16 20:20 88/58 10/27/16 20:00 98.3 72 20 88/58 100 Mechanical Ventilator 50 10/27/16 20:00 50 10/27/16 20:00 72 10/27/16 19:04 73 20 50 10/27/16 19:00 74 20 91/68 98 Mechanical Ventilator 50 10/27/16 18:00 72 20 97/59 98 Mechanical Ventilator 50 10/27/16 17:00 70 20 88/57 99 Mechanical Ventilator 50 10/27/16 16:54 75 26 50 10/27/16 16:00 50 10/27/16 16:00 98.2 69 20 89/58 99 Mechanical Ventilator 50 10/27/16 16:00 69 10/27/16 15:28 74 20 50 10/27/16 15:00 72 20 88/58 99 Mechanical Ventilator 50 10/27/16 14:00 72 20 90/60 99 Mechanical Ventilator 50 Intake and Output 10/28/16 10/29/16 19:00 07:00 Intake Total 360 ml Balance 360 ml Tube Feeding 300 ml Other 60 ml Laboratory Tests 10/28/16 04:20: White Blood Count 10.8, Red Blood Count 2.57L, Hemoglobin 7.7L, Hematocrit 23.4L , Mean Corpuscular Volume 91, Mean Corpuscular Hemoglobin 30.0, Mean Corpuscular Hemoglobin Concent 32.9, Red Cell Distribution Width 18.7H, Platelet Count 195#, Mean Platelet Volume 8.5, Neutrophils (%) (Auto) , Lymphocytes (%) (Auto) , Monocytes (%) (Auto) , Eosinophils (%) (Auto) , Basophils (%) (Auto) , Sodium Level 148H, Potassium Level 3.9, Chloride Level 114H, Carbon Dioxide Level 22, Anion Gap 12, Blood Urea Nitrogen 55H, Creatinine 2.0H, Estimat Glomerular Filtration Rate , Glucose Level 108H, Uric Acid 7.5, Calcium Level 8.3L, Phosphorus Level 4.2, Magnesium Level 2.2, Total Bilirubin 0.6, Aspartate Amino Transf (AST/SGOT) 93H, Alanine Aminotransferase ( ALT/SGPT) 90H, Alkaline Phosphatase 140H, C-Reactive Protein, Quantitative 9.9H , Pro-B-Type Natriuretic Peptide 86832E, Total Protein 6.5L, Albumin 1.5L, Globulin 5.0, Albumin/Globulin Ratio 0.3L Height (Feet): 5 Height (Inches): 10.00 Weight (Pounds): 190 General Appearance: no apparent distress Cardiovascular: normal rate Respiratory/Chest: decreased breath sounds Abdomen: distended Objective other PE not changed YONNY LYONS Oct 28, 2016 13:41
--- NOTE | 2016-10-28 16:04 | Infectious Diseases Prog Note ---
Assessment/Plan Assessment/Plan ASSESSMENT: Multilobar pneumonia --severe sepsis, improving , TTE demonstrated significant systolic dysfunction with dilated IVC arguing against hypovolemic shock. Treating as multilobar pneumonia --severe hypothermia s/p GABE hugger, resolved -- leukocytosis, resolved --multilobar pneumonia with superimposed pulmonary edema sputum growing PSA and KPC -- CoNS in blood, one of 4 bottles contaminant --thrombocytopenia, improving --shock liver: transaminitis improving acute viral hepatitis panel negative --probable h/o chronic liver disease --h/o depakote for mood d/o --U/A negative for UTI --elevated TSH --hypoalbuminemia --VRE colonized -- VIANCA ( ? 2nd to Amikacin ) PLAN: -- cont IV Merrem, Colistin INH, d# 4 / , continue Cefepime d# 3 / , ( 09/25 SP Amikicain d# 6 ) -- ( 09/24 SP IV vanc, and ertapenem D# 5 ) --f/u blood cx s --aspiration precautions, vent care, trach care --skin care --contact isolation per hospital policy Subjective ROS Limited/Unobtainable: Yes Allergies: Coded Allergies: No Known Allergies (Unverified , 10/21/16) Subjective afebrile. prior hypothermia T90F on admission has resolved. Objective Vital Signs Last 24 Hour Vital Signs Date Time Temp Pulse Resp B/P (MAP) Pulse Ox O2 Delivery O2 Flow Rate FiO2 10/28/16 16:00 40 10/28/16 14:35 69 20 40 10/28/16 12:59 67 20 40 10/28/16 12:00 68 10/28/16 12:00 98.0 71 20 88/54 97 Mechanical Ventilator 40 10/28/16 12:00 40 10/28/16 10:45 71 18 40 10/28/16 10:24 71 16 100 Mechanical Ventilator 40 10/28/16 10:19 73 18 98 Mechanical Ventilator 40 10/28/16 09:05 78 20 40 10/28/16 08:00 70 10/28/16 08:00 40 10/28/16 08:00 98.1 69 20 83/49 96 Mechanical Ventilator 40 10/28/16 07:12 74 20 40 10/28/16 05:01 70 20 40 10/28/16 04:00 40 10/28/16 04:00 78 10/28/16 03:19 74 20 40 10/28/16 03:00 71 20 87/56 99 Mechanical Ventilator 50 10/28/16 02:00 72 20 85/50 98 Mechanical Ventilator 50 10/28/16 01:13 72 20 40 10/28/16 01:00 81 20 82/50 98 Mechanical Ventilator 50 10/28/16 00:00 70 20 89/58 100 Mechanical Ventilator 50 10/28/16 00:00 71 10/27/16 23:00 98.1 77 20 95/59 100 Mechanical Ventilator 50 10/27/16 22:28 69 20 50 10/27/16 22:00 70 20 95/59 100 Mechanical Ventilator 50 10/27/16 21:55 69 20 99 Mechanical Ventilator 50 10/27/16 21:45 70 20 98 Mechanical Ventilator 50 10/27/16 21:29 70 20 50 10/27/16 21:00 72 20 90/56 98 Mechanical Ventilator 50 10/27/16 20:20 88/58 10/27/16 20:00 98.3 72 20 88/58 100 Mechanical Ventilator 50 10/27/16 20:00 50 10/27/16 20:00 72 10/27/16 19:04 73 20 50 10/27/16 19:00 74 20 91/68 98 Mechanical Ventilator 50 10/27/16 18:00 72 20 97/59 98 Mechanical Ventilator 50 10/27/16 17:00 70 20 88/57 99 Mechanical Ventilator 50 10/27/16 16:54 75 26 50 Height (Feet): 5 Height (Inches): 10.00 Weight (Pounds): 190 Objective General Appearance: not responsive, no apparent distress, intubated on vent with trach. no pressors. Head: normocephalic, atraumatic Eyes: bilateral eye PERRL, bilateral eye EOMI ENT: normal ENT inspection, hearing grossly normal, normal voice, trach c/d/i. Neck: normal inspection, full range of motion, supple, no meningismus, no bony tend. prior R IJ placed 10/21/16has been removed. Respiratory: normal inspection, chest non-tender, no respiratory distress, no retraction, no accessory muscle use, +rhonchi, diffuse wheezes throughout. rhonchi worse at R lung base. copious but thin trach aspirate. Cardiovascular #1: regular rate, rhythm, no edema Gastrointestinal: normal inspection, normal bowel sounds, non tender, soft, no guarding. periumbilical hernia is easily reducible. peg in place. Genitourinary: no CVA tenderness. condom cath in place Musculoskeletal: normal inspection Skin: normal inspection, normal color, no rash. several non erythematous, non purulent punched out lesions on pretibial spaces. skin warm, peffusing distally Laboratory Tests Test 10/28/16 04:20 White Blood Count 10.8 K/UL (4.8-10.8) Red Blood Count 2.57 M/UL (4.70-6.10) L Hemoglobin 7.7 G/DL (14.2-18.0) L Hematocrit 23.4 % (42.0-52.0) L Mean Corpuscular Volume 91 FL (80-99) Mean Corpuscular Hemoglobin 30.0 PG (27.0-31.0) Mean Corpuscular Hemoglobin Concent 32.9 G/DL (32.0-36.0) Red Cell Distribution Width 18.7 % (11.6-14.8) H Platelet Count 195 K/UL (150-450) # Mean Platelet Volume 8.5 FL (6.5-10.1) Neutrophils (%) (Auto) % (45.0-75.0) Lymphocytes (%) (Auto) % (20.0-45.0) Monocytes (%) (Auto) % (1.0-10.0) Eosinophils (%) (Auto) % (0.0-3.0) Basophils (%) (Auto) % (0.0-2.0) Sodium Level 148 mEQ/L (135-145) H Potassium Level 3.9 mEQ/L (3.4-4.9) Chloride Level 114 mEQ/L (98-107) H Carbon Dioxide Level 22 mEQ/L (20-30) Anion Gap 12 (5-15) Blood Urea Nitrogen 55 mg/dL (7-23) H Creatinine 2.0 mg/dL (0.7-1.2) H Estimat Glomerular Filtration Rate mL/min (>60) Glucose Level 108 mg/dL (74-106) H Uric Acid 7.5 mg/dL (3.0-7.5) Calcium Level 8.3 mg/dL (8.6-10.2) L Phosphorus Level 4.2 mg/dL (2.5-4.8) Magnesium Level 2.2 mg/dL (1.7-2.5) Total Bilirubin 0.6 mg/dL (0.0-1.2) Aspartate Amino Transf (AST/SGOT) 93 U/L (5-40) H Alanine Aminotransferase (ALT/SGPT) 90 U/L (3-41) H Alkaline Phosphatase 140 U/L (40-129) H C-Reactive Protein, Quantitative 9.9 mg/dL (< 0.5) H Pro-B-Type Natriuretic Peptide 33757 pg/mL (0-125) H Total Protein 6.5 g/dL (6.6-8.7) L Albumin 1.5 g/dL (3.5-5.2) L Globulin 5.0 g/dL Albumin/Globulin Ratio 0.3 (1.0-2.7) L Current Medications Medications (Trade) Dose Ordered Sig/Estelle Route PRN Reason Start Time Stop Time Status Last Admin Dose Admin Acetaminophen (Tylenol) 650 mg Q4H PRN ORAL fever 10/28/16 05:45 11/20/16 13:44 Aspirin (ASA) 81 mg DAILY NG 10/28/16 09:00 11/25/16 08:59 10/28/16 08:58 Atorvastatin Calcium (Lipitor) 40 mg BEDTIME ORAL 10/28/16 21:00 11/25/16 20:59 Cefepime HCl 2 gm/ Dextrose 110 ml @ 220 mls/hr Q24H IVPB 10/28/16 23:00 11/02/16 22:59 Colistimethate Sodium (Colistin *inhalation use only*) 150 mg Q12HR INH 10/28/16 09:00 11/01/16 20:59 10/28/16 10:18 Diltiazem HCl (Cardizem) 10 mg EVERY HOUR PRN IV UNTIL HR 120 10/28/16 04:00 11/23/16 19:14 Lansoprazole (Prevacid) 30 mg Q12HR GT 10/28/16 09:00 11/21/16 21:59 10/28/16 08:58 Levothyroxine Sodium (Synthroid) 25 mcg DAILY@0630 GT 10/28/16 06:30 11/24/16 06:29 10/28/16 05:26 Meropenem 2 gm/ Sodium Chloride 110 ml @ 220 mls/hr Q12HR@0600,1800 IVPB 10/28/16 06:00 10/30/16 17:59 10/28/16 05:25 Midodrine (Pro-Amatine) 10 mg THREE TIMES A DAY GT 10/28/16 09:00 11/26/16 12:59 10/28/16 13:21 Ondansetron HCl (Zofran) 4 mg Q6H PRN IVP Nausea & Vomiting 10/28/16 07:45 11/20/16 13:44 Polyethylene Glycol (Miralax) 17 gm DAILYPRN PRN GT Constipation 10/28/16 11:15 11/20/16 13:44 Jesse Campbell M.D. Oct 28, 2016 16:04
[2016-10-28] MEDS ORDERED: 1/2 NS 1000ml IV ONE (16:27)
--- NOTE | 2016-10-28 17:34 | Cardiology Progress Note ---
Assessment/Plan Assessment/Plan 1. Ischemic cardiomyopathy. 2. Anoxic encephalopathy. 3. Hypotension. 4. Septic shock. 5. Thrombocytopenia. 6. Differential tachycardia with aberrancy. 7. Hypernatremia. 8. Pulmonary hypertension. 9. Anemia. 10. Systolic heart failure, acute on chronic. 11. Abnormal liver function test. 12. Hypothyroidism. 13. NSTEMI 14. componenet of cardiogenic shock bp borderline no cy oir bb at this time cr is abn but seem stabel cannot use dobutamine in light of elevated trop not a candidate for any invasive rxn once bp improves bb and then acei ecotrin started statin started vent support off ivf if needed restart on norepinephrine abx started on midodrine tele reviwed persoanlly no svt since 10/24! 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 prognosis still quite ill Subjective ROS Limited/Unobtainable: Yes Objective Last 24 Hour Vital Signs Date Time Temp Pulse Resp B/P (MAP) Pulse Ox O2 Delivery O2 Flow Rate FiO2 10/28/16 16:38 72 20 40 10/28/16 16:00 40 10/28/16 16:00 97.8 68 20 96/63 99 Mechanical Ventilator 40 10/28/16 15:31 74 10/28/16 14:35 69 20 40 10/28/16 12:59 67 20 40 10/28/16 12:00 68 10/28/16 12:00 98.0 71 20 88/54 97 Mechanical Ventilator 40 10/28/16 12:00 40 10/28/16 10:45 71 18 40 10/28/16 10:24 71 16 100 Mechanical Ventilator 40 10/28/16 10:19 73 18 98 Mechanical Ventilator 40 10/28/16 09:05 78 20 40 10/28/16 08:00 70 10/28/16 08:00 40 10/28/16 08:00 98.1 69 20 83/49 96 Mechanical Ventilator 40 10/28/16 07:12 74 20 40 10/28/16 05:01 70 20 40 10/28/16 04:00 40 10/28/16 04:00 78 10/28/16 03:19 74 20 40 10/28/16 03:00 71 20 87/56 99 Mechanical Ventilator 50 10/28/16 02:00 72 20 85/50 98 Mechanical Ventilator 50 10/28/16 01:13 72 20 40 10/28/16 01:00 81 20 82/50 98 Mechanical Ventilator 50 10/28/16 00:00 70 20 89/58 100 Mechanical Ventilator 50 10/28/16 00:00 71 10/27/16 23:00 98.1 77 20 95/59 100 Mechanical Ventilator 50 10/27/16 22:28 69 20 50 10/27/16 22:00 70 20 95/59 100 Mechanical Ventilator 50 10/27/16 21:55 69 20 99 Mechanical Ventilator 50 10/27/16 21:45 70 20 98 Mechanical Ventilator 50 10/27/16 21:29 70 20 50 10/27/16 21:00 72 20 90/56 98 Mechanical Ventilator 50 10/27/16 20:20 88/58 10/27/16 20:00 98.3 72 20 88/58 100 Mechanical Ventilator 50 10/27/16 20:00 50 10/27/16 20:00 72 10/27/16 19:04 73 20 50 10/27/16 19:00 74 20 91/68 98 Mechanical Ventilator 50 10/27/16 18:00 72 20 97/59 98 Mechanical Ventilator 50 General Appearance: on vent, patient on isolation Cardiovascular: irregularly irregular Respiratory/Chest: rhonchi - bilaterally Abdomen: normal bowel sounds, non tender, soft Extremities: no swelling Intake and Output 10/28/16 10/29/16 18:59 06:59 Intake Total 600 ml Output Total 800 ml Balance -200 ml Tube Feeding 480 ml Other 120 ml Output Urine Total 800 ml Laboratory Tests Test 10/28/16 04:20 White Blood Count 10.8 K/UL (4.8-10.8) Red Blood Count 2.57 M/UL (4.70-6.10) L Hemoglobin 7.7 G/DL (14.2-18.0) L Hematocrit 23.4 % (42.0-52.0) L Mean Corpuscular Volume 91 FL (80-99) Mean Corpuscular Hemoglobin 30.0 PG (27.0-31.0) Mean Corpuscular Hemoglobin Concent 32.9 G/DL (32.0-36.0) Red Cell Distribution Width 18.7 % (11.6-14.8) H Platelet Count 195 K/UL (150-450) # Mean Platelet Volume 8.5 FL (6.5-10.1) Neutrophils (%) (Auto) % (45.0-75.0) Lymphocytes (%) (Auto) % (20.0-45.0) Monocytes (%) (Auto) % (1.0-10.0) Eosinophils (%) (Auto) % (0.0-3.0) Basophils (%) (Auto) % (0.0-2.0) Sodium Level 148 mEQ/L (135-145) H Potassium Level 3.9 mEQ/L (3.4-4.9) Chloride Level 114 mEQ/L (98-107) H Carbon Dioxide Level 22 mEQ/L (20-30) Anion Gap 12 (5-15) Blood Urea Nitrogen 55 mg/dL (7-23) H Creatinine 2.0 mg/dL (0.7-1.2) H Estimat Glomerular Filtration Rate mL/min (>60) Glucose Level 108 mg/dL (74-106) H Uric Acid 7.5 mg/dL (3.0-7.5) Calcium Level 8.3 mg/dL (8.6-10.2) L Phosphorus Level 4.2 mg/dL (2.5-4.8) Magnesium Level 2.2 mg/dL (1.7-2.5) Total Bilirubin 0.6 mg/dL (0.0-1.2) Aspartate Amino Transf (AST/SGOT) 93 U/L (5-40) H Alanine Aminotransferase (ALT/SGPT) 90 U/L (3-41) H Alkaline Phosphatase 140 U/L (40-129) H C-Reactive Protein, Quantitative 9.9 mg/dL (< 0.5) H Pro-B-Type Natriuretic Peptide 63899 pg/mL (0-125) H Total Protein 6.5 g/dL (6.6-8.7) L Albumin 1.5 g/dL (3.5-5.2) L Globulin 5.0 g/dL Albumin/Globulin Ratio 0.3 (1.0-2.7) L VERA AUGUSTINE Oct 28, 2016 17:34
[2016-10-28] MEDS ORDERED: Cefepime HCl 2 GM in D5W 110 ML IVPB SCH (23:00)
[2016-10-29] MEDS: Colistin for inhalation INH SCH (00:05)
[2016-10-29] MEDS ORDERED: Tubing IV Blood Pump IV ONE (01:37)
[2016-10-29] MEDS ORDERED: Tubing IV Secondary IV ONE (01:37)
[2016-10-29] MEDS ORDERED: NS 275ml ONE (01:37)
[2016-10-29] MEDS ORDERED: NS 550ML IV ONE (01:37)
--- NOTE | 2016-10-30 12:46 | Cardiology Report ---
APPROVED REPORT EKG Measurement Heart [id number] Normal sinus rhythm Low voltage QRS Nonspecific T wave abnormality Abnormal ECG
--- NOTE | 2016-11-02 13:08 | Discharge Summary ---
Discharge Summary Hospital Course Date of Admission Oct 21, 2016 at 11:10 Date of Discharge Oct 29, 2016 at 01:38 Admitting Diagnosis ALTERED MENTAL STATUS HPI Josr Wu is a 71 year old male who was admitted on Oct 21, 2016 at 11: 10 for Altered Mental Status Hospital Course dc summary #[id number] Discharge Discharge Disposition Patient was transferred to [facility] Diagnoses: Michael (Mavisindia),Sumaya SCOTT Nov 02, 2016 13:08
--- NOTE | 2016-11-03 09:45 | Discharge Summary 2 SIG ---
DATE OF ADMISSION: 10/21/2016 DATE OF DISCHARGE: 10/29/2016 REASON FOR ADMISSION: 71-year-old male with hypoxemic encephalopathy, status post cardiac arrest last March with tracheostomy, ventilator dependency, dysphagia, G-tube, was brought in by ambulance with chief complaint of episode of unresponsiveness at the senior living facility. The patient was found to have extensive pneumonia. The patient also found to have septic shock. Blood pressure did not respond to fluid challenge. Central line was placed in the emergency department for pressors. The patient was started on pressors and transferred to ICU. Chest x-ray was consistent with diffuse bilateral infiltrates and vascular congestion. Urinalysis with pyuria and few bacteria. Initially evidence of elevated transaminase. AST- 164, ALT -149, ammonia -27 , within normal limits. Potassium -5.6, lactic acid- 1.9. No leukocytosis. Hemoglobin- 10.9 and hematocrit- 36.2. ADMITTING DIAGNOSES: 1. Acute on chronic respiratory failure. 2. Septic shock. 3. Multilobar pneumonia. 4. Hypoxemic encephalopathy. 5. Dysphagia, gastrostomy tube. 6. Ventilator-dependent respiratory failure, tracheostomy. 7. Altered level of consciousness. 8. Anemia. 9. Hyperkalemia. HOSPITAL COURSE: The patient was admitted. The patient was in ICU. Hemodynamic support provided with pressors. Levophed was continued to keep mean arterial pressure above 65. Safety Physician closely followed. Blood pressure stabilized. Levophed stopped on 10/25/2016. The patient was started on midodrine. Blood pressure remained stable. Ventilator support provided. Pulmonary toilet provided. Tracheostomy care was maintained. The patient was on daily ABG and chest x-ray. On 10/26/2016, ABG demonstrated acute respiratory acidosis with hypercapnia. Ventilator settings were adjusted. On 10/27/2016, on settings of tidal volume of 700, AC 20 and FiO2 of 50%, ABG stable, no acidosis, no hypercapnia. The patient initially started on empiric antibiotics. ID followed. Sputum culture revealed Pseudomonas aeruginosa and Klebsiella pneumoniae, carbapenem resistant. Chest x-ray revealed multilobar pneumonia with superimposed pulmonary edema. Initial blood culture negative. Repeated blood culture 03/03 staph coag-negative. Repeated on 10/23/2016, blood culture negative. Staph coag-negative, likely contaminant as per ID conclusion. Severe hypothermia, status post Marely Hugger, resolved, leukocytosis resolved. Per ID need to continue antibiotics for treatment of multilobar pneumonia. Safety Physician closely followed . Echocardiogram revealed ejection fraction of 30% to 35% and right ventricular systolic pressure of 45 consistent with mild pulmonary hypertension as well as evidence of moderate mitral regurgitation. According to producer arborist manager, no KAISER or beta-toy at this time due to borderline blood pressure. The patient noted to have elevated troponin. On 10/26/2016, troponin -11.48, then on 10/26/2016 in 8 hours troponin - 7.62 and in another 8 hours troponin - 4.86. No changes on EKG. According to Cardiology, non-STEMI. The patient was not a candidate for any invasive treatment at this time. Once blood pressure improves, cardio recommended to start beta-toy and then KAISER inhibitor ( of blood pressure allows). Ecotrin and statin were started. Abdominal ultrasound revealed suggestion of underlying cirrhosis. No evidence of acute biliary disease, but shows also evidence of medical renal disease. Hepatitis panel was negative. Initially transaminitis, was worsening, possibly shock liver due to severe sepsis and pressors. When off the pressor, LFT started to trend down. Strict aspiration precautions were maintained. The patient was started on G-tube feeding, tolerance was monitored closely. Patient was able to tolerate tube feeding. Renal parameters and electrolytes were clsoely monitored. The patient developed acute renal failure, likely some chronic renal insufficiency as evident on abdominal ultrasound, which revealed medical renal disease. Cutting Room Supervisor closely followed. Recommended to avoid nephrotoxic, however, acute renal failure was likely secondary to sepsis. Anemia workup revealed low iron and high ferritin and low TIBC. Workup was consistent with anemia of chronic disease. The patient required blood transfusion, total of 3 units of packed red blood cells. Initially, was on heparin for DVT prophylaxis, however, platelets were trending down. Heparin was discontinued. The patient was on SCD for DVT prophylaxis. GI prophylaxis provided. The patient started on low dose of levothyroxine due to the elevated TSH and low free T4. . Thrombocytopenia improved after stopping heparin. Transaminitis improved after stopping pressor. Acute viral hepatitis panel was negative. Transaminitis was likely secondary to history of chronic liver disease as well as probably shock liver due to sepsis. Per insurance, the patient was capitated to [facility]. The patient required transfer to [facility] once stable. On day of discharge, no leukocytosis. No signs of respiratory distress on current ventilator settings. Hemoglobin- 7.7, hematocrit -23.4. Creatinine -2.0. LFT trending down. Troponin trending down. C-reactive protein trending down. Last chest x-ray revealed bilateral extensive infiltrates, no change. The patient was cleared for transfer by all consultants. Overall prognosis poor. FINAL DIAGNOSES: 1. Acute encephalopathy (likely due to sepsis and shock) on chronic advanced dementia. 2. Septic shock due to sepsis. 3. Severe sepsis 4. Multilobar pneumonia. 5. Acute on chronic respiratory failure. 6. Ventilator-dependent respiratory failure/tracheostomy status. 7. Pacemaker. 8. Elevated troponin 9. Non-ST elevation myocardial infarction 10. Systolic heart failure, acute on chronic. 11. Ischemic cardiomyopathy with ejection fraction 30% to 35% 12. Mild pulmonary hypertension. 13. History of hypertension, current hypotension. 14. Acute renal failure due to sepsis and dehydration. 15. Chronic obstructive pulmonary disease. 16. Dysphagia, gastrostomy tube. 17. Shock liver 18. Anoxic encephalopathy. 19. Hypothyroidism, new onset. 20. Anemia of chronic disease requiring blood transfusion. 21. Thrombocytopenia. 22. Hypernatremia. 23. Sacral coccyx decubitus stage II, present on admission. DISCHARGE MEDICATION: List of medication was sent to the accepting facility, i.e., [facility]. DISCHARGE INSTRUCTIONS: The patient was transferred to [facility] as per insurance purposes. Follow up with medical doctor and electrical maintenance technician at the facility. Jayleen Mary M.D. I have been assigned to dictate discharge summary on this account and I was not involved in the patient's management. Sumaya SouzaBellevue Women'S Hospitalhayden, N.P. DR: RU JOB#: [id number] CC: MICHELLE
== END 2016-10-29 01:38 | DRG 870 ==
LOC: EDBD 10:32 → EMR 10:54 → ICU 11:10 → EDBEDREQSVC 11:53 → EDBEDREQ 12:40 → 2W 10-28 03:05
PROC: 05HM33Z Insertion of Infusion Device into Right Internal Jugular Vein, Percutaneous Approach (ICD-10-PCS; principal; 2016-10-21)
PROC: 5A1955Z Respiratory Ventilation, Greater than 96 Consecutive Hours (ICD-10-PCS; principal; 2016-10-21)
PROC: 30233N1 Transfusion of Nonautologous Red Blood Cells into Peripheral Vein, Percutaneous Approach (ICD-10-PCS; 2016-10-24)
DX: A41.9 Sepsis, unspecified organism (principal); J96.20 Acute and chronic respiratory failure, unspecified whether with hypoxia or hypercapnia; K72.00 Acute and subacute hepatic failure without coma; I21.4 Non-ST elevation (NSTEMI) myocardial infarction; J18.9 Pneumonia, unspecified organism; R65.21 Severe sepsis with septic shock; I50.23 Acute on chronic systolic (congestive) heart failure; G93.1 Anoxic brain damage, not elsewhere classified; L89.152 Pressure ulcer of sacral region, stage 2; Z99.11 Dependence on respirator [ventilator] status; I47.1 Supraventricular tachycardia; Z43.1 Encounter for attention to gastrostomy; E87.0 Hyperosmolality and hypernatremia; D69.6 Thrombocytopenia, unspecified; Z43.0 Encounter for attention to tracheostomy; E87.5 Hyperkalemia; D64.9 Anemia, unspecified; Z86.74 Personal history of sudden cardiac arrest; Z79.02 Long term (current) use of antithrombotics/antiplatelets; J44.9 Chronic obstructive pulmonary disease, unspecified; I10 Essential (primary) hypertension; K21.9 Gastro-esophageal reflux disease without esophagitis; I25.2 Old myocardial infarction; E11.9 Type 2 diabetes mellitus without complications; I25.5 Ischemic cardiomyopathy; I27.2 Other secondary pulmonary hypertension; E03.9 Hypothyroidism, unspecified; R94.5 Abnormal results of liver function studies; R13.10 Dysphagia, unspecified; R68.0 Hypothermia, not associated with low environmental temperature; E83.52 Hypercalcemia; E86.0 Dehydration; Z95.0 Presence of cardiac pacemaker; D63.8 Anemia in other chronic diseases classified elsewhere
CPT/HCPCS: 36415; 36600; 71010; 76705; 80048; 80053; 80150; 80164; 80202; 81003; 82140; 82248; 82378; 82533; 82550; 82553; 82607; 82728; 82747; 82803; 82962; 83540; 83550; 83605; 83735; 83880; 84100; 84300; 84439; 84443; 84484; 84550; 85007; 85025; 85610; 85730; 86140; 86705; 86709; 86803; 86850; 86900; 86901; 86920; 87040; 87070; 87081; 87181; 87205; 87340; 93005; 93306; 94002; 94003; 94640; 96360; 96361; 96372; 96374; 96375; 99284